=== PATIENT | male | born 1960 | race Caucasian/White ===

== ENCOUNTER 2025-09-23 15:24 | Inpatient (IN) | payer OTHER, MEDICAID, SELFPAY ==
[2025-09-23] VITALS (19 sets, daily range): BP systolic 152–169; BP diastolic 103–122; PULSE 82–104; RESP 15–21; TEMP 36.4–36.9; O2SAT 96–100; BMI 34.1
--- NOTE | ~2025-09-23 | XR_ITS ---
EXAM/PROCEDURE: XR barium swallow modified HISTORY: Coughing with liquids COMPARISON: None available. TECHNIQUE: Modified barium swallow Fluoroscopy time: 0.6 minutes DAP: 0.697 Angelo per square centimeter Number of images: 1 IMPRESSION: No aspiration observed. See speech therapist's note for complete details. Reviewed, dictated and finalized at location A. [facility]
--- NOTE | ~2025-09-23 | MR_ITS ---
EXAM/PROCEDURE: MR renal wo/w con HISTORY: complex cystic mass COMPARISON: CT examination from September 26 TECHNIQUE: Pre and postcontrast enhanced MRI of the kidneys FINDINGS: A 2.5 cm mid pole right renal cyst is slightly complex along the medial margin was slightly thickened appearing wall. No mural nodular enhancing component. A 9 mm simple cyst present in the lower pole of the left kidney and tiny cysts in the midpole and upper pole region. In the left kidney, a 1.2 cm simple cyst in the upper pole. Adrenal glands kidneys spleen pancreas and stomach as well as gallbladder and liver appear within normal limits. No AAA. Cardiomegaly in the lower chest noted. The bones appear within normal limits. IMPRESSION: 1. Mildly complex Bosniak 2 right renal cyst. No follow-up surveillance required for this lesion. 2. Other benign-appearing renal cysts. 3. Incidental note of cardiomegaly. Reviewed, dictated and finalized at location A. PLACEMENT OFFICER IMPRESSION: 1. Mildly complex Bosniak 2 right renal cyst. No follow-up surveillance require d for this lesion. 2. Other benign-appearing renal cysts. 3. Incidental note of cardiomegaly.
--- NOTE | ~2025-09-23 | CT_ITS ---
EXAM/PROCEDURE: CT abdomen pelvis wo con HISTORY: Abdominal Pain COMPARISON: None available. TECHNIQUE: Noncontrast CT of abdomen and pelvis FINDINGS: In the lower chest subsegmental atelectatic changes, and mild cardiomegaly with trace pericardial effusion. In the abdomen and pelvis, the bowel gas pattern is nonobstructive with no free air free fluid or pneumatosis. Moderate large amount of stool present in the rectal vault region. No hydroureteronephrosis or urolithiasis. 2.5 cm mildly complex cystic lesion in the midpole of the right kidney. Mild cystic appearing changes in the left kidney. Appendix and aorta are both normal in size. No gross CT evidence of acute cholecystitis or pancreatitis. The stomach is unopacified and nondistended but no obvious acute abnormality. Spleen and adrenal glands as well as urinary bladder appear normal for technique. Small fat-containing inguinal hernias, right larger than left. No bulky mesenteric or retroperitoneal lymphadenopathy or masses. IMPRESSION: 1. Directed noncontrast exam demonstrating no acute surgical abnormality. 2. Moderate to large amount of stool in the rectal vault. 3. Several chronic appearing findings as above including 2.5 cm mildly complex cystic mass in the midpole the right kidney which can be better evaluated with follow-up abdominal MRI. Reviewed, dictated and finalized at location A. CCO CUTTER
--- NOTE | ~2025-09-23 | MR_ITS ---
EXAMINATION: MR brain/brain stem wo/w con DATE: 09/24/2025 15:42 INDICATION: Suspected stroke with dysarthria and right extremity weakness TECHNIQUE: Magnetic resonance imaging (MRI) of the brain and brainstem was performed without and with 20 mL Multihance intravenous contrast. Sequences included sagittal and axial T1-weighted SE, axial diffusion-weighted FS SE, axial 3D SWAN, axial T2-weighted FLAIR, and axial T2-weighted FSE. Postcontrast axial and coronal T1-weighted SE was obtained. Apparent diffusion coefficient (ADC) maps were created. COMPARISON: Head CT and CT angiogram dated 09/23/2025 FINDINGS: There is are regions of restricted diffusion with associated increased T2 signal consistent with acute infarcts involving the posterior left insular cortex, the posterior left internal capsule and with peripheral cantrell radiata with several small foci in the left frontoparietal region. No intracranial hemorrhage or abnormal intracranial mass lesion. There are additional scattered areas of nonspecific increased T2-weighted signal intensity in the cerebral white matter, predominantly involving the deep and periventricular white matter. There are no intraparenchymal signal abnormalities seen on the other pulse sequences. The ventricles are symmetric and normal in size. There are no abnormal extra-axial fluid collections. Flow voids are seen in the cerebral arteries on the T2- weighted sequences consistent with their expected patency. Mild mucosal thickening the bilateral ethmoid sinuses and along the floor of the left maxillary sinus. Visualized orbits and soft tissues are unremarkable. There are no areas of abnormal enhancement on the post contrast images. IMPRESSION: 1. Multiple infarcts consistent with sharp emboli in the left middle cerebral artery vascular distribution the largest involving the posterior insula, posterior limb of the internal capsule and cantrell radiata with several smaller cortical infarcts in the left frontoparietal region. Reviewed, dictated and finalized at location A. FORMER IMPRESSION: 1. Multiple infarcts consistent with sharp emboli in the left middle cerebral a rtery vascular distribution the largest involving the posterior insula, posteri or limb of the internal capsule and cantrell radiata with several smaller cortica l infarcts in the left frontoparietal region.
--- NOTE | ~2025-09-23 | CT_ITS ---
CT abdomen pelvis wo con INDICATION:abd pain . COMPARISON: None. TECHNIQUE: Axial 2.5 mm images of the abdomen were obtained without IV or oral contrast. Diagnostic sensitivity is limited due to lack of IV contrast. FINDINGS: The lung bases are clear. The liver parenchyma is unremarkable. No intrahepatic mass or ductal dilatation is evident. The gallbladder is unremarkable. The pancreas and spleen are normal in appearance. The adrenal glands are symmetric in size. The kidneys are unremarkable. Right renal cyst measures 2.8 cm. No intrarenal stones are noted. There is no hydronephrosis. Evaluation of the stomach and bowel loops are limited due to lack of oral contrast. The appendix is normal in appearance. There is colonic diverticulosis without evidence of acute diverticulitis. Fat-containing right inguinal hernia is noted. The bladder and rectum are normal. No free intraperitoneal fluid or air is evident. There is no significant retroperitoneal lymphadenopathy. The aorta, visceral vessels and renal arteries demonstrate normal caliber. The lower thoracic and lumbar vertebrae are in normal alignment. IMPRESSION: No acute abnormality is noted in the abdomen and pelvis. There is colonic diverticulosis without evidence of acute diverticulitis. Fat-containing right inguinal hernia repair. All CT scans at this facility are performed using low dose modulation techniques as appropriate to perform exam including the following: automated exposure control; use of iterative reconstruction technique; adjustment of the mA and/or kV according to patient size (this includes techniques or standardized protocols for targeted exams where dose is matched to indication/reason for exam). Reviewed, dictated and finalized at location S. LER ASSEMBLER IMPRESSION: No acute abnormality is noted in the abdomen and pelvis. There is colonic diverticulosis without evidence of acute diverticulitis. Fat-containing right inguinal hernia repair. All CT scans at this facility are performed using low dose modulation techniqu es as appropriate to perform exam including the following: automated exposure c ontrol; use of iterative reconstruction technique; adjustment of the mA and/or kV according to patient size (this includes techniques or standardized protocol s for targeted exams where dose is matched to indication/reason for exam).
--- NOTE | ~2025-09-23 | CT_ITS ---
REFERENCE: [None available.] TECHNIQUE: Axial mm images of the head and neck were obtained without and with infusion of 100 cc of [id number] of intravenous contrast. Postcontrast 1.25 mm axial images were then obtained. On an independent workstation, 0.625 mm axial images were utilized to render MIP and MPR images of the intracranial circulation. CTA NECK: The aortic arch demonstrates normal caliber and patency. Normal branching pattern is noted of the supraaortic vessels. The origins of the supraaortic vessels are widely patent.. The common carotid and cervical segments of the ICA and ECA demonstrate normal caliber and patency. There are atherosclerotic vascular calcification within the cavernous and clinoid and supraclinoid ICA bilaterally without significant stenosis. The vertebral arteries are symmetric in size, demonstrating normal patency. CTA HEAD: The intracranial ICA, MISHA, and MCA demonstrate normal caliber and patency. No hemodynamically significant stenosis or aneurysm is identified. The distal vertebral, basilar, and bilateral posterior cerebral arteries demonstrate normal caliber and patency. The superior cerebellar arteries are also widely patent. NONVASCULAR FINDINGS: The soft tissue of the neck is unremarkable. No mass or pathologic enhancement is noted. There is no pathologically enlarged lymphadenopathy. The airway is patent. No acute intracranial hemorrhage, mass, or extraaxial fluid collections are noted. Ventricular size is normal. The skull is intact. The visualized mastoid air cells and sinuses are clear. There is no pathologic enhancement. IMPRESSION: No hemodynamically significant stenosis is noted of the cervical and intracranial arterial vasculature. Reviewed, dictated and finalized at location S. PING PRESS OPERATOR IMPRESSION: No hemodynamically significant stenosis is noted of the cervical and intracrani al arterial vasculature.
--- NOTE | 2025-09-23 15:46 | ECG_ITS ---
Test Date: 2025-09-23 15:54:07 Measurements Intervals [place] Rate: 105 P: 0 DE: 0 QRS: 25 QRSD: 90 T: 3 QT: 320 QTc: 423 Interpretive Statements ATRIAL FIBRILLATION WITH RAPID VENTRICULAR RESPONSE BASELINE ARTIFACT- I, II, III, AVR, AVL, AVF, V1, V3, V6 ABNORMAL ECG No previous ECG available for comparison Electronically Signed On 09-23-2025 15:56:24 [facility]ILD C[facility] CENTER ADMINISTRATOR by Gregorio Campbell D.O.
--- NOTE | 2025-09-23 16:00 | ED_ITS ---
HPI - Neuro Symptoms/Deficit General Chief Complaint: Fall Stated Complaint: multiple complaints Time Seen by Provider: 09/23/25 15:46 History of Present Illness HPI Narrative: Pt awoke this morning with some weakness on right side. It was not improving so he called 911. Per EMS pt had some slurred speech on their arival but it worsened in route and now having trouble answering questions but able to understand. Pt denies GOULD. Related Data Allergies Allergy/AdvReac Type Severity Reaction Status Date / Time No Known Allergies Allergy Verified 09/23/25 18:09 Review of Systems 2 Review of Systems: ROS unobtainable: Yes unobtainable due to medical condition Exam 2 Const: General: no acute distress Nutritional Appearance: well nourished Limitations: other limitations (aphasic) HENMT: Head: normal to inspection Eyes: Conjunctivae: conjunctivae normal Pupils: Equal, round and reactive pupils present Resp: Effort & Inspection: normal respiratory effort Auscultation: clear to auscultation bilaterally Cardio: Rate: tachycardic Rhythm: abnormal rhythm GI: GI Palp: Yes Soft to palpation Auscultation: normal bowel sounds Skin: General skin exam: normal color Rashes: no rashes Wounds: no wounds Neuro: Other: pt slightly weaker on rue than left ue. cn 2-12 grossly intact. Pt has expressive aphasia. LE strength seems intact Extrem: General: normal to inspection and no clubbing, cyanosis or edema Psych: Mental Status: mental status grossly normal Affect: Anxious affect present (tearful) Attitude: cooperative Course Vital Signs Vital signs: Vital Signs Temperature 98.2 F 09/23/25 15:37 Pulse Rate 100 09/23/25 15:37 Respiratory Rate 18 09/23/25 15:37 Blood Pressure 169/116 H 09/23/25 15:37 Pulse Oximetry 98 09/23/25 15:37 Temperature 98.4 F 09/23/25 17:18 Pulse Rate 96 09/23/25 17:18 Respiratory Rate 18 09/23/25 17:18 Blood Pressure 161/122 H 09/23/25 17:18 Pulse Oximetry 99 09/23/25 17:18 MDM MDM Narrative Medical decision making narrative: will get ekg and labs and ct/cta. last known well before 0800 today since patient awoke with rue weakness but expressive pahasia is in last 30 minutes or so. Pt will be outside window given the unknown onset of RUE weakness. cta neg. discussed with Dr Woods recommended plavix and aspirin and will consult in am. discussed with Elaina Corona and agrees to admit.Pt failed swallow test. Informed Dr Woods ok with asa supp only. Differential Diagnosis Differential Diagnosis: tia v cva v sah Lab Data 09/23/25 15:47 09/23/25 15:47 Labs: Lab Results 09/23/25 09/23/25 09/23/25 Range/Units 15:44 15:47 15:49 WBC 8.2 (4.5-10.0) K/mm3 RBC 4.53 L (4.6-6.20) M/mm3 Hgb 14.6 (14.0-18.0) g/dL Hct 43.6 (42.0-52.0) % MCV 96.2 (80-100) fl MCH 32.2 (26-34) pg MCHC 33.5 (32-36) g/dl RDW 13.6 (11.5-14.5) % Plt Count 216 (150-375) k/mm3 MPV 10.5 H (7.4-10.4) fl Immature Gran % (Auto) 0.2 (0-0.5) % Neut % (Auto) 83.6 H (45.5-73.1) % Lymph % (Auto) 9.4 L (18.3-44.2) % [place] % (Auto) 5.8 (2.6-8.5) % Eos % (Auto) 0.6 (0-4.4) % Baso % (Auto) 0.4 (0.2-1.2) % Lymph # (Auto) 0.77 L (0.9-3.2) K/mm3 [place] # (Auto) 0.5 (0.1-0.6) K/mm3 Eos # (Auto) 0.1 (0-0.3) K/mm3 Baso # (Auto) 0.0 (0.0-0.1) K/mm3 Abs Immat Gran (auto) 0.02 (0.00-0.031) K/mm3 Absolute Neuts (auto) 6.8 H (1.3-6.7) K/mm3 Absolute Nucleated RBC 0.000 (0.0-0.012) K/mm3 Nucleated RBC % 0.0 (0.0-0.2) % PT 12.7 (11.1-14.7) Seconds INR 0.9 APTT 26.4 (22.3-36.8) Seconds Sodium 138 (137-145) mmol/L Potassium 4.5 (3.4-5.0) mmol/L Chloride 106 (98-107) mmol/L Carbon Dioxide 25 (22-30) mmol/L Anion Gap 7 (4-12) mmol/L BUN 27 H (9-20) mg/dL Creatinine 1.23 (0.7-1.3) mg/dL Estim Creat Clear Calc Not Reportable Estimated GFR 59 (59 - ) Glucose 101 (65-110) mg/dL POC Capillary Glucose 107 H (65-105) mg/dl Lactic Acid 1.0 (0.7-2.0) mmol/L Calcium 9.8 (8.4-10.2) mg/dL Total Bilirubin 0.7 (0.2-1.3) mg/dL AST 30 (17-59) U/L ALT 28 (6-50) U/L Alkaline Phosphatase 78 (38-126) U/L Troponin I < 0.012 (0.000-0.034) ng/mL Total Protein 7.7 (6.3-8.2) g/dL Albumin 4.6 (3.5-5.1) g/dL Urine Color (Yellow) Urine Appearance (Clear) Urine pH (5.0-9.0) Ur Specific [place] (1.001-1.035) Urine Protein (Negative) mg/dL Urine Glucose (UA) (Negative) mg/dL Urine Ketones (Negative) mg/dL Ur Blood (Man) (Negative) Urine Nitrate (Negative) Urine Bilirubin (Negative) Urine Urobilinogen (<2.0) mg/dL Leukocyte Esterase Rfl (Negative) BACILIO/UL 12/15/25 Range/Units 16:13 WBC (4.5-10.0) K/mm3 RBC (4.6-6.20) M/mm3 Hgb (14.0-18.0) g/dL Hct (42.0-52.0) % MCV (80-100) fl MCH (26-34) pg MCHC (32-36) g/dl RDW (11.5-14.5) % Plt Count (150-375) k/mm3 MPV (7.4-10.4) fl Immature Gran % (Auto) (0-0.5) % Neut % (Auto) (45.5-73.1) % Lymph % (Auto) (18.3-44.2) % [place] % (Auto) (2.6-8.5) % Eos % (Auto) (0-4.4) % Baso % (Auto) (0.2-1.2) % Lymph # (Auto) (0.9-3.2) K/mm3 [place] # (Auto) (0.1-0.6) K/mm3 Eos # (Auto) (0-0.3) K/mm3 Baso # (Auto) (0.0-0.1) K/mm3 Abs Immat Gran (auto) (0.00-0.031) K/mm3 Absolute Neuts (auto) (1.3-6.7) K/mm3 Absolute Nucleated RBC (0.0-0.012) K/mm3 Nucleated RBC % (0.0-0.2) % PT (11.1-14.7) Seconds INR APTT (22.3-36.8) Seconds Sodium (137-145) mmol/L Potassium (3.4-5.0) mmol/L Chloride (98-107) mmol/L Carbon Dioxide (22-30) mmol/L Anion Gap (4-12) mmol/L BUN (9-20) mg/dL Creatinine (0.7-1.3) mg/dL Estim Creat Clear Calc Estimated GFR (59 - ) Glucose (65-110) mg/dL POC Capillary Glucose (65-105) mg/dl Lactic Acid (0.7-2.0) mmol/L Calcium (8.4-10.2) mg/dL Total Bilirubin (0.2-1.3) mg/dL AST (17-59) U/L ALT (6-50) U/L Alkaline Phosphatase (38-126) U/L Troponin I (0.000-0.034) ng/mL Total Protein (6.3-8.2) g/dL Albumin (3.5-5.1) g/dL Urine Color Yellow (Yellow) Urine Appearance Clear (Clear) Urine pH 5.5 (5.0-9.0) Ur Specific [place] 1.013 (1.001-1.035) Urine Protein Negative (Negative) mg/dL Urine Glucose (UA) Negative (Negative) mg/dL Urine Ketones Negative (Negative) mg/dL Ur Blood (Man) Negative (Negative) Urine Nitrate Negative (Negative) Urine Bilirubin Negative (Negative) Urine Urobilinogen 0.2 (<2.0) mg/dL Leukocyte Esterase Rfl Negative (Negative) BACILIO/UL Imaging Data Radiologist's impression: ITS Impressions Head/Neck CTA 09/23/25 17:17 IMPRESSION: No hemodynamically significant stenosis is noted of the cervical and intracranial arterial vasculature. ECG Data EKG #1: Interpretation: a fib with rvr rate 105, no sat or t wave changes Discharge Plan Discharge Clinical Impression: Expressive aphasia, Right sided weakness Patient Disposition: Still a Patient Condition: Guarded Prognosis Patient Language: Vietnamese Follow-up/Referrals: Mio,Carmelo Banerjee MD [Primary Care Provider] Quality Stroke Scale Stroke Scale 1: 1a Level of consciousness: alert-0 1b Level of consciousness questions: answers both correctly-0 1c Level of consciousness commands: obeys both correctly-0 2 Best gaze: normal-0 3 Visual: no visual loss-0 4 Facial palsy: normal-0 5a Motor: left arm: no drift-0 5b Motor: right arm: drift-1 6a Motor: left leg: no drift-0 6b Motor: right leg: no drift-0 7 Limb ataxia: present in one limb-1 8 Sensory: normal-0 9 Best language: severe aphasia-2 10 Dysarthria: unitelligible or mute-2 11 Extinction and inattention: no abnormality-0 Level:: 6
[2025-09-23 16:03] LABS: Hematocrit 43.6 % (42.0-52.0); Hemoglobin 14.6 g/dL (14.0-18.0); Immature Granulocyte Percent A 0.2 % (0-0.5); Lymphocytes Absolute Auto 0.77 K/mm3 (0.9-3.2); Mean Corpuscular HGB Conc 33.5 g/dl (32-36); Mean Corpuscular Hemoglobin 32.2 pg (26-34); Mean Corpuscular Volume 96.2 fl (80-100); Nucleated Red Blood Cells Absolute Auto 0.000 K/mm3 (0.0-0.012); Nucleated Red Blood Cells Perc 0.0 % (0.0-0.2); Platelet Count Result 216 k/mm3 (150-375); Red Blood Count 4.53 M/mm3 (4.6-6.20); White Blood Count 8.2 K/mm3 (4.5-10.0)
[2025-09-23 16:13] LABS: Alanine Aminotransferase 28 U/L (6-50); Albumin Level 4.6 g/dL (3.5-5.1); Alkaline Phosphatase 78 U/L (38-126); Anion Gap 7 mmol/L (4-12); Aspartate Amino Transferase 30 U/L (17-59); Bilirubin,Total 0.7 mg/dL (0.2-1.3); Blood Urea Nitrogen 27 mg/dL (9-20); Calcium 9.8 mg/dL (8.4-10.2); Carbon Dioxide 25 mmol/L (22-30); Chloride 106 mmol/L (98-107); Estimated Glomerular Filt Rate 59; Glucose 101 mg/dL (65-110); Potassium 4.5 mmol/L (3.4-5.0); Sodium 138 mmol/L (137-145); Total Protein 7.7 g/dL (6.3-8.2)
--- NOTE | 2025-09-23 16:22 | PC.NURSE ---
called lab to add troponin to labwork already sent down
[2025-09-23 16:23] LABS: Add Urine Microscopic? NO; Appearance Urine Clear (Clear); Glucose Urine UA Negative (Negative); Leukocyte Esterase Ur Negative LEU/UL (Negative); Nitrate Urine Negative (Negative); Specific Grav Ur 1.013 (1.001-1.035)
[2025-09-23 16:30] LABS: INR 0.9; Partial Thromboplastin Time 26.4 Seconds (22.3-36.8); Prothrombin Time 12.7 Seconds (11.1-14.7)
[2025-09-23 16:44] LABS: Troponin I < 0.012 ng/mL (0.000-0.034)
--- NOTE | 2025-09-23 18:06 | PC.NURSE ---
patient is unable to do swallow study test on due to slurred speech, facial droop, tongue weakness. MD aware, patient made NPO, MD ordering alternative medications.
--- OUTSIDE RECORDS SUMMARY | 2025-09-23 18:27 | XMS_ITS | Patient Health Record ---
Author Organization [facility] Address [address] [place] [address] Phone [phone] Care Team Providers Care Dispensing Operator Name Role Phone Yosef Payton APRN Primary Care Provider Reason For Referral No Information Medications Medication SIG (Take, Route, Frequency, Duration) Notes Start Date End Date Diagnosis (ICD Code) Status Benzonatate 100 MG Capsule 1 capsule as needed Orally Three times a day Active Amoxicillin-Pot Clavulanate 500 MG Tablet Orally twice a day Active Metoprolol Tartrate 50 MG Tablet 1 tablet with food Orally Twice a day Active Levothyroxine Sodium 25 MCG Tablet 1 tablet on an empty stomach in the morning Orally Once a day Active Lisinopril 10 MG Tablet Orally Active Social History Sex Observation Social History Observation Description Sex Observation Male Social History Primary Social History Social Info Question Answer Notes Living Arrangement Living Arrangement: Homeless Tobacco Use - do not use Tobacco Use: Never Employment Status Employment Status: Unemployed Illicit Substance Usage Illicit Substance Usage: No Alcohol Use Alcohol Use Frequency: Weekly or Daily Type of alcohol consumed Beer Quanity consumed on those occasions one a night Problems Problem Type SNOMED Code ICD Code Dates Problem Status W/U Status Risk Notes Problem Chronic atrial fibrillation (208941674) Chronic atrial fibrillation (I48.2) Added On:09/09 Active confirmed Problem Hypothyroidism (75032826) Hypothyroidism, unspecified type (E03.9) Added On:09/09 Active confirmed Problem Bipolar disorder (44299744) Bipolar affective disorder, current episode manic, current episode severity unspecified (F31.9) Added On:09/09 Active confirmed Problem Secondary hypertension (53742860) Secondary hypertension (I15.9) Added On:09/09 Active confirmed Plan Of Treatment No Information Insurance Providers Payer Name Payer Address Payer Phone Subscriber Number Group Number Insured Name Patient Relationship to Insured Coverage Start Date Coverage End Date [facility] [address] [address] [place] [address] [id number] Don Neil Self - patient is the insured 6 Medical (General) History Medical History History ICD Code hypothyroidism hypertension anxiety ADHD bipolar disorder atrial fibrillation Surgical History Surgery Date(Month/Year) sinus surgery
--- OUTSIDE RECORDS SUMMARY | 2025-09-23 18:27 | XMS_ITS | Clinical Summary ---
Author Organization [facility] al Address [address] [place] [address] Care Team Providers Care [employer] Name Role Phone Carmelo Lieberman MD Primary Care Provider [phone] Allergies No known active allergies Medications simvastatin (ZOCOR) 40 mg tablet 0 Active rivaroxaban (Xarelto) 20 mg tablet Xarelto 20 mg tablet 9 Active potassium chloride ER (potassium chloride ER) 20 mEq CR tablet potassium chloride ER 20 mEq tablet,extended release(part/jillian t) Active metoprolol tartrate (LOPRESSOR) 50 mg immediate release tablet metoprolol tartrate 50 mg tablet 9 Active loratadine (CLARITIN) 10 mg tablet loratadine 10 mg tablet TK 1 T PO QD 8 Active levothyroxine (SYNTHROID) 25 mcg tablet levothyroxine 25 mcg tablet Active furosemide (LASIX) 20 mg tablet TK 1 T PO D 0 Active fluticasone propionate (FLONASE) 50 mcg/actuation nasal spray fluticasone propionate 50 mcg/actuation nasal spray,suspension SHAKE LQ AND U 1 SPR IEN QD Active azithromycin (ZITHROMAX) 250 mg tablet TAKE 1 TABLET BY MOUTH DAILY FOR 3 DAYS Active Encounters Date Type Department Care Team Description 08/13/2025 12:45 AM TOBACCO SPRAYER - 08/13/2025 3:02 AM TOBACCO SPRAYER Emergency [facility] Emergency Department [address] [place] [address] Padmini [place] MD Non-recurrent unilateral inguinal hernia without obstruction or gangrene (Primary Dx) Discharge Disposition: Discharge to home or self care from Last 3 Months Surgical History Surgery Date Site/Laterality Comments INGUINAL HERNIA REPAIR SINUS SURGERY Medical History Medical History Date Comments Hypertension Thyroid disease A-fib (HCC) Varicose veins of both lower extremities Social History Tobacco Use Types Packs/Day Years Used Date Smoking Tobacco: Never Smokeless Tobacco: Never Alcohol Use Standard Drinks/Week Comments Not Currently 0 (1 standard drink = 0.6 oz pur e alcohol) socially Personal Safety Answer Date Recorded Have you ever been in or are you currently in a harmful physical or emotional relationship or is someone making you feel afraid or unsafe? Denies 08/12/2025 Sex and Gender Information Value Date Recorded Sex Assigned at Not on file Legal Sex Male 6:44 PM TOBACCO SPRAYER Gender Identity Not on file Sexual Orientation Not on file Last Filed Vital Signs Vital Sign Reading Time Taken Comments Blood Pressure 145/103 08/13/2025 2:00 AM TOBACCO SPRAYER Pulse 73 08/13/2025 2:00 AM TOBACCO SPRAYER Temperature 36.8 C (98.3 F) 08/12/2025 3:54 PM TOBACCO SPRAYER Respiratory Rate 20 08/13/2025 2:00 AM TOBACCO SPRAYER Oxygen Saturation 94% 08/13/2025 2:00 AM TOBACCO SPRAYER Inhaled Oxygen Concentration - - Weight 117.5 kg (259 lb) 08/12/2025 3:54 PM TOBACCO SPRAYER Height 188 cm (6' 2) 08/12/2025 3:54 PM TOBACCO SPRAYER Body Mass Index 33.25 08/12/2025 3:54 PM TOBACCO SPRAYER Plan of Treatment Health Maintenance Due Date Last Done Comments Colon Cancer Screening-Colonoscopy 1962 Depression Screening 1962 Hepatitis C Screening 1962 Prostate Cancer Screening-PSA 1962 Hepatitis B Screening 1980 Regular Well Visit/Exam 18-64 1980 Zoster Vaccine (1 of 2) 2012 Influenza Vaccine (#1) 2025 2, 07/04/2017, 09/11/2015 DTaP/Tdap/Td Vaccine (2 - Td or Tdap) 11/25/2026 11/25/2016 Pneumococcal vaccine <65 Aged Out No longer eligible based on patient's age to complete this topic Procedures Procedure Name Priority Date/Time Associated Diagnosis Comments EGFR STAT 08/12/2025 7:53 PM TOBACCO SPRAYER DIFFERENTIAL AUTO STAT 08/12/2025 7:5 3 PM TOBACCO SPRAYER TROPONIN I HIGH-SENSITIVITY SERIES (BASELINE, 2HR, 4HR, 6HR) STAT 08/12/2025 7:53 PM TOBACCO SPRAYER CBC WITH AUTO DIFFERENTIAL STAT 08/12/2025 7:53 PM TOBACCO SPRAYER COMPREHENSIVE METABOLIC PANEL STAT 08/12/2025 7:53 PM TOBACCO SPRAYER XR CHEST PA LATERAL 2 VIEWS ED 08/12/2025 4:21 PM TOBACCO SPRAYER ECG 12-LEAD STAT 08/12/2025 4:17 PM TOBACCO SPRAYER from Last 3 Months Results * Troponin I high-sensitivity series (baseline, 2hr, 4hr, 6hr) (08/12/2025 7:53 PM TOBACCO SPRAYER) Trop I hs 4 <=35 ng/L Comment: Interpretive Data For further hscTnI resources including the diagnostic algorithm and an aid in interpretation, copy and paste this link: https://bjhlab.testcatalog.org/show/hsTrop-[email or web address] Current Interpretive Data last revised 2020. Blood 08/12/2025 7:53 PM TOBACCO SPRAYER 08/12/2025 8:00 PM TOBACCO SPRAYER us Padmini [place] MD LAB BLOOD ORDERABLES Final Result [facility] Department [place] [address] * eGFR (08/12/2025 7:53 PM TOBACCO SPRAYER) eGFR 65 >=60 mL/min/1. 73 m2 Comment: Interpretive Data Reference Interval Normal >/= 90 mL/min/1.73m2 Mildly decreased* 60 - 89 mL/min/1.73m2 Mildly to moderately decreased 45 - 59 mL/min/1.73m2 Moderately to severely decreased 30 - 44 mL/min/1.73m2 Severely decreased 15 - 29 mL/min/1.73m2 Kidney Failure < 15 mL/min/1.73m2 *Relative to young adult level Estimated glomerular filtration rate is determined by the 2020 CKD-EPI equation recommended by the National Kidney Foundation (A Unifying Approach to GFR Estimation: Recommendations of the NKF-ASK Task Force on Reassessing the Inclusion of Race in Diagnosing Kidney Disease, JASN 2020). The CKD-EPI equation should not be used for patients with unstable renal function and has not been validated in children and those over 70. Current interpretive data was last reviewed 2021. Blood 08/12/2025 7:53 PM TOBACCO SPRAYER 08/12/2025 8:14 PM TOBACCO SPRAYER Padmini [place] MD LAB BLOOD ORDERABLES Final Result [facility] Department [place] [address] * Differential, auto (08/12/2025 7:53 PM TOBACCO SPRAYER) Pathologist [facility] Neutrophil abs 4.47 1.50 - 6.50 K/cumm Imm gran abs 0.05 0.00 - 0.10 K/cumm [facility] Lymphocyte abs 1.48 0.80 - 3.30 K/cumm [facility] Monocyte abs 0.45 0.20 - 0.80 K/cumm [facility] Eosinophil abs 0.17 0.00 - 0.50 K/cumm [facility] Basophil abs 0.05 0.00 - 0.10 K/cumm [facility] Neutrophil pct 67.2 % [facility] Comment: Interpretive Data Percent cell count reference ranges are not reported, since discordance with absolute values may lead to misinterpretation of CBC data. Current Interpretive Data was last revised on 2018. Imm gran pct 0.7 % [facility] Comment: Interpretive Data Percent cell count reference ranges are not reported, since discordance with absolute values may lead to misinterpretation of CBC data. Current Interpretive Data was last revised on 2018. Lymphocyte pct 22.2 % [facility] Comment: Interpretive Data Percent cell count reference ranges are not reported, since discordance with absolute values may lead to misinterpretation of CBC data. Current Interpretive Data was last revised on 2018. Monocyte pct 6.7 % [facility] Comment: Interpretive Data Percent cell count reference ranges are not reported, since discordance with absolute values may lead to misinterpretation of CBC data. Current Interpretive Data was last revised on 2018. Eosinophil pct 2.5 % [facility] Comment: Interpretive Data Percent cell count reference ranges are not reported, since discordance with absolute values may lead to misinterpretation of CBC data. Current Interpretive Data was last revised on 2018. Basophil pct 0.7 % [facility] Comment: Interpretive Data Percent cell count reference ranges are not reported, since discordance with absolute values may lead to misinterpretation of CBC data. Current Interpretive Data was last revised on 2018. Blood 08/12/2025 7:53 PM TOBACCO SPRAYER 08/12/2025 8:00 PM TOBACCO SPRAYER Padmini [place] MD LAB BLOOD ORDERABLES Final Result [facility] Department [place] [address] * CBC with auto differential (08/12/2025 7:53 PM TOBACCO SPRAYER) WBC 6.67 3.80 - 9.90 K/cumm Hgb 13.8 13.0 - 17.5 g/dL [facility] Hct 42.6 38.9 - 50.3 % [facility] Plt 294 150 - 400 K/cumm [facility] MPV 10.1 9.1 - 12.3 fL [facility] RBC 4.47 4.30 - 5.80 M/cumm [facility] MCV 95.3 81.3 - 96.4 fL [facility] MCH 30.9 27.1 - 33.3 pg [facility] MCHC 32.4 32.3 - 35.7 g/dL [facility] RDW CV 13.1 11.1 - 14.9 % [facility] RDW SD 45.8 35.7 - 48.1 fL [facility] NRBC abs 0.00 0.00 - 0.01 K/cumm [facility] Blood 08/12/2025 7:53 PM TOBACCO SPRAYER 08/12/2025 8:00 PM TOBACCO SPRAYER us Padmini [place] MD LAB BLOOD ORDERABLES Final Result [facility] Department [place] [address] * Comprehensive metabolic panel (08/12/2025 7:53 PM TOBACCO SPRAYER) Sodium 142 135 - 145 mmol/L Potassium, pl 4.2 3.3 - 4.9 mmol/L [facility] Chloride 105 97 - 110 mmol/L [facility] CO2 26 22 - 32 mmol/L [facility] Anion gap 11 2 - 15 mmol/L [facility] BUN 16 6 - 25 mg/dL [facility] Creatinine 1.25 0.80 - 1.30 mg/dL [facility] Glucose 109 70 - 199 mg/dL [facility] Comment: Interpretive Data Fasting glucose >/= 126 mg/dl is diagnostic for diabetes. Fasting is defined as no caloric intake for at least 8 hours. Fasting glucose between 100 mg/dl to 125 mg/dl is diagnostic of prediabetes. In a patient with classic symptoms of hyperglycemia or hyperglycemic crisis, a random glucose >/= 200 mg/dl is diagnostic for diabetes. In the absence of unequivocal hyperglycemia, results should be confirmed by repeat testing. The classification and Diagnosis of Diabetes Diabetes Care 202; 46: S19-S40. Current interpretive data was last revised 2022. Calcium 9.6 8.5 - 10.3 mg/dL [facility] Bilirubin, total 0.6 0.1 - 1.2 mg/dL [facility] Protein, pl 7.2 6.5 - 8.5 g/dL [facility] Albumin 4.2 3.5 - 5.0 g/dL [facility] Alk phos 72 40 - 130 Units/L [facility] ALT 33 7 - 55 Units/L [facility] AST 32 10 - 50 Units/L [facility] Blood 08/12/2025 7:53 PM TOBACCO SPRAYER 08/12/2025 8:00 PM TOBACCO SPRAYER us Padmini [place] MD LAB BLOOD ORDERABLES Final Result [facility] [place] [address] * XR Chest PA Lateral 2 Views (If patient hemodynamically stable and ambulatory) (08/12/2025 4:21 PM TOBACCO SPRAYER) Anatomical Region Laterality Modality Body, Chest N/A Computed Radiogr aphy 08/12/2025 4:54 PM TOBACCO SPRAYER Impressions 08/12/2025 4:54 PM TOBACCO SPRAYER No focal consolidation, pleural effusion, or pneumothorax. The cardiomediastinal silhouette is unremarkable. Electronically signed by: Elmira Mcknight MD, MPHS Narrative 08/12/2025 4:54 PM TOBACCO SPRAYER EXAMINATION: XR CHEST PA LATERAL 2 VIEWS HISTORY: Shortness of breath COMPARISON: None available. Procedure Note Elmira Mcknight MD - 08/12/2025 EXAMINATION: XR CHEST PA LATERAL 2 VIEWS HISTORY: Shortness of breath COMPARISON: None available. IMPRESSION: No focal consolidation, pleural effusion, or pneumothorax. The cardiomediastinal silhouette is unremarkable. Electronically signed by: Elmira Mcknight MD, MPHS us Padmini [place] MD IMG XR PROCEDURES Fin al Result * ECG 12-LEAD (08/12/2025 4:17 PM TOBACCO SPRAYER) Narrative [facility] - 08/12/2025 4:17 PM TOBACCO SPRAYER Debbie Marin MD 08/12/2025 4:18 PM ECG 12 lead Date/Time: 08/12/2025 4:17 PM Performed by: Debbie Marin MD Authorized by: Gregory Pinon MD Rate: ECG rate: 89 Rhythm: Rhythm: atrial fibrillation Ectopy: Ectopy: none QRS: QRS axis: Normal QRS intervals: Normal Conduction: Conduction: normal ST segments: ST segments: Normal T waves: T waves: flattening Flattening: III, aVL, aVF, V5 and V6 Previous ECG: Previous ECG: Compared to current Date of previous EC02/07/2020 Interpretation: Interpretation: No significant change Recommended Follow-up: Recommended follow up: further workup in the ED us Padmini [place] MD ECG ORDERABLES Final Result [facility] from Last 3 Months Insurance [facility] [employer] [place] [facility] Care Teams [employer] Relationship Specialty Start Date End Date Carmelo Lieberman MD [id number] [address] PCP - General 02/16/21
--- OUTSIDE RECORDS SUMMARY | 2025-09-23 18:27 | XMS_ITS | Clinical Summary ---
Author Organization [facility] Address Formerly [facility], later [facility] [place] [address] Care Team Providers Care Physiognomist Name Role Phone Carmelo Lieberman MD Primary Care Provider [phone] Kaycee Witt MD Unavailable [phone] Allergies No known active allergies Medications rivaroxaban (XARELTO) 20 MG Tab tablet Take 20 mg by mouth after lunch. 12/13/2020 Active furosemide 20 MG tablet Take 20 mg by mouth daily. Active potassium chloride CR 20 MEQ tablet Take 20 mEq by mouth daily. Active levothyroxine 25 MCG tablet Take 25 mcg by mouth daily. Active simvastatin 40 MG tablet Take 40 mg by mouth nightly. Active HYDROcodone-acet aminophen 5-325 MG tabletIndication s:Acute Pain < 3 Day Supply Take 1 tablet by mouth every 6 (six) hours as needed. Indications : Acute Pain < 3 Day Supply 10 tablet 02/19/2021 Active Encounters Date Type Department Care Team Description 08/23/2025 1:21 PM CONTINUOUS PROCESS MACHINE OPERATOR - 08/23/2025 5:59 PM [facility] Emergency [facility] [place] [address] Jase Jessica MD Groin Pain; Pleuritic Chest Pain Discharge Disposition: Home or Self Care (Routine Discharge) 08/23/2025 Travel from Last 3 Months Social History Tobacco Use Types Packs/Day Years Used Date Smoking Tobacco: Former Smokeless Tobacco: Never Alcohol Use Standard Drinks/Week Comments Yes 0 (1 standard drink = 0.6 oz pur e alcohol) occasional beer Sex and Gender Information Value Date Recorded Sex Assigned at Not on file Legal Sex Male 6:04 PM CDT Gender Identity Not on file Sexual Orientation Not on file Last Filed Vital Signs Vital Sign Reading Time Taken Comments Blood Pressure 148/112 08/23/2025 3:35 PM CONTINUOUS PROCESS MACHINE OPERATOR Pulse 79 08/23/2025 3:35 PM CONTINUOUS PROCESS MACHINE OPERATOR Temperature 36.6 C (97.8 F) 08/23/2025 1:32 PM CONTINUOUS PROCESS MACHINE OPERATOR Respiratory Rate 19 08/23/2025 3:35 PM CONTINUOUS PROCESS MACHINE OPERATOR Oxygen Saturation 98% 08/23/2025 3:35 PM CONTINUOUS PROCESS MACHINE OPERATOR Inhaled Oxygen Concentration - - Weight 118.1 kg (260 lb 5.8 oz) 08/23/2025 1:32 PM CONTINUOUS PROCESS MACHINE OPERATOR Height 188 cm (6' 2) 08/23/2025 1:32 PM CONTINUOUS PROCESS MACHINE OPERATOR Body Mass Index 33.43 08/23/2025 1:32 PM CONTINUOUS PROCESS MACHINE OPERATOR Plan of Treatment Upcoming Encounters Date Type Department Care Team (Latest Contact Info) Description 10/07/2025 4:35 PM CONTINUOUS PROCESS MACHINE OPERATOR Hospital Encounter [facility] [place] [address] Freddy Trevizo MD [address] [place] [address] [phone] 10/07/2025 4:35 PM CONTINUOUS PROCESS MACHINE OPERATOR - 10/07/2025 6:40 PM CONTINUOUS PROCESS MACHINE OPERATOR Surgery [facility] [place] [address] Freddy Trevizo MD [address] [place] [address] [id number] ROBOTIC XI ASSISTED LAPAROSCOPIC RIGHT INGUINAL HERNIA REPAIR WITH MESH, POSSIBLE OPEN REPAIR Scheduled Procedures Name Priority Associated Diagnoses Date/Ti me ROBOTIC XI HERNIA INGUINAL RIGHT INGUINAL HERNIA K40.90 10/07/2025 4:35 PM CONTINUOUS PROCESS MACHINE OPERATOR Health Maintenance Due Date Last Done Comments Colorectal Cancer Screening Colonoscopy (10 Years) 1960 Annual Physical 1965 Hepatitis C 1980 DTaP, Tdap and Td Vaccines ( 1 - Tdap) 1981 Pneumococcal Vaccine: 50+ Ye ars (1 of 1 - PCV) 2012 Zoster Vaccines (1 of 2) 2012 COVID-19 Vaccine (1 - 2024-2 6 season) 2025 Influenza Adult (#1) 2025 RSV Immunization or 60+ Years (1 - 1-dose 75+ series) 2037 Hepatitis A Vaccines Aged Out No long er eligible based on patient's age to complete this topic Meningococcal B Vaccine Aged Out No l onger eligible based on patient's age to complete this topic Meningococcal Vaccine Aged Out No eddie jesusita eligible based on patient's age to complete this topic RSV Immunizations Under 20 Months Aged Out No longer eligible based on patient's age to complete this topic Goals Goal Patient Goal Type Associated Problems Recent Progress Patient-Stated? Author Autogenerat ed Goal Care Plan Autogenerated Problem No Lili Vu RN Procedures Procedure Name Priority Date/Time Associated Diagnosis Comments CT ABD+PEL W CON STAT 08/23/2025 4:41 PM CONTINUOUS PROCESS MACHINE OPERATOR XR CHEST PORTABLE STAT 08/23/2025 3:1 5 PM CONTINUOUS PROCESS MACHINE OPERATOR ELECTROCARDIOGRAM REPORT Routine 025 3:14 PM CONTINUOUS PROCESS MACHINE OPERATOR LIPASE STAT 08/23/2025 2:50 PM CONTINUOUS PROCESS MACHINE OPERATOR BASIC METABOLIC PANEL STAT 08/23/2025 2:50 PM CONTINUOUS PROCESS MACHINE OPERATOR HC CBC AUTO W/AUTO DIFF STAT 08/23/20 25 2:50 PM CONTINUOUS PROCESS MACHINE OPERATOR ECG 12-LEAD Routine 08/23/2025 1:43 PM CONTINUOUS PROCESS MACHINE OPERATOR from Last 3 Months Results * CT ABD+PEL W IV CON ONLY (08/23/2025 4:41 PM CONTINUOUS PROCESS MACHINE OPERATOR) Anatomical Region Laterality Modality Abdomen Computed Tomogra phy 08/23/2025 4:39 PM CONTINUOUS PROCESS MACHINE OPERATOR Impressions 08/23/2025 4:43 PM CONTINUOUS PROCESS MACHINE OPERATOR IMPRESSION: There is a fat-containing hernia that is present on the RIGHT superior to this there are stranding changes that are present. This may be secondary to vascular enlargement. This finding may be secondary to the herniated fat or could be due to inflammatory changes. Colonic diverticulosis without acute inflammation. Referred By: Interpreted By: Nathaniel Pacheco MD, 08/23/2025 4:39 PM Narrative 08/23/2025 4:43 PM CONTINUOUS PROCESS MACHINE OPERATOR [address] [address] Procedure(s): CT ABD+PEL W CON Date of service: 08/23/2025 4:17 PM Provided clinical information: 65 years, Male, Abdominal pain/right inguinal hernia reduced Procedure and materials: Helical images of the abdomen and pelvis are obtained from superior to the diaphragm to inferior to the pubic symphysis. Sagittal and coronal reconstructions are obtained. 100 mL Isovue-370. A dose lowering technique was used for this procedure, which may include, but is not limited to, dose reduction technique, automated exposure control, iterative reconstruction, ALARA (As Low As Reasonably Achievable), or Image Gently techniques. Comparison studies: None. Findings: CT abdomen and pelvis: Lung Bases: No pleural effusions or consolidations.Dependent atelectatic changes are present in the lung bases. Adrenals:Unremarkable Spleen:No splenomegaly. Gallbladder and Biliary system:No CT evidence of cholelithiasis. No biliary dilatation Pancreas:Unremarkable Liver:Unremarkable Kidneys:Bilateral renal cysts. No follow-up imaging is recommended per consensus recommendations based on imaging criteria. . Bowel:Fat-containing RIGHT inguinal hernia is present. Small fat-containing LEFT inguinal hernia. Colonic diverticulosis is present. No acute diverticulitis. Appendix is unremarkable. There are mild stranding changes are present in the RIGHT lower quadrant this is suspected to be secondary to vascular engorgement. This is better seen on the coronal reconstructed images. This may relate to inflammatory changes. No small bowel dilatation. Aorta and Retroperitoneum:Aorta is not aneurysmal.No enlarged lymph nodes. Pelvic Organs:Urinary bladder is unremarkable. Moderate prostate enlargement. Bone/Musculoskeletal: Degenerative changes lower lumbar spine. Free fluid: Stranding changes in the RIGHT lower quadrant. Procedure Note Nathaniel Pacheco MD - 08/23/2025 [facility] [address] [place], [place] [address] Procedure(s): CT ABD+PEL W CON Date of service: 08/23/2025 4:17 PM Provided clinical information: 65 years, Male, Abdominal pain/rightinguinal hernia reduced Procedure and materials: Helical images of the abdomen and pelvis areobtained from superior to the diaphragm to inferior to the pubicsymphysis. Sagittal and coronal reconstructions are obtained. 100 mLIsovue-370. A dose lowering technique was used for this procedure, which may include,but is not limited to, dose reduction technique, automated exposurecontrol, iterative reconstruction, ALARA (As Low As ReasonablyAchievable), or Image Gently techniques. Comparison studies: None. Findings: CT abdomen and pelvis: Lung Bases: No pleural effusions or consolidations.Dependent atelectaticchanges are present in the lung bases. Adrenals:Unremarkable Spleen:No splenomegaly. Gallbladder and Biliary system:No CT evidence of cholelithiasis. Nobiliary dilatation Pancreas:Unremarkable Liver:Unremarkable Kidneys:Bilateral renal cysts. No follow-up imaging is recommended per consensus recommendations based onimaging criteria. . Bowel:Fat-containing RIGHT inguinal hernia is present. Smallfat-containing LEFT inguinal hernia. Colonic diverticulosis is present. Noacute diverticulitis. Appendix is unremarkable. There are mild strandingchanges are present in the RIGHT lower quadrant this is suspected to besecondary to vascular engorgement. This is better seen on the coronalreconstructed images. This may relate to inflammatory changes. No smallbowel dilatation. Aorta and Retroperitoneum:Aorta is not aneurysmal.No enlarged lymphnodes. Pelvic Organs:Urinary bladder is unremarkable. Moderate prostateenlargement. Bone/Musculoskeletal: Degenerative changes lower lumbar spine. Free fluid: Stranding changes in the RIGHT lower quadrant. IMPRESSION: There is a fat-containing hernia that is present on the RIGHT superior tothis there are stranding changes that are present. This may be secondaryto vascular enlargement. This finding may be secondary to the herniatedfat or could be due to inflammatory changes. Colonic diverticulosis without acute inflammation. Referred By: Interpreted By: Nathaniel Pacheco MD, 08/23/2025 4:39 PM us Jase Jessica MD CT Final Result * XR CHEST PORTABLE (08/23/2025 3:15 PM CONTINUOUS PROCESS MACHINE OPERATOR) Anatomical Region Laterality Modality Chest Radiographic Lara ging 08/23/2025 3:16 PM CONTINUOUS PROCESS MACHINE OPERATOR Impressions 08/23/2025 3:16 PM CONTINUOUS PROCESS MACHINE OPERATOR IMPRESSION: No acute findings Ordered By: JASE JESSICA Interpreted By: Ankit Quinn MD, 08/23/2025 3:16 PM Narrative 08/23/2025 3:16 PM CONTINUOUS PROCESS MACHINE OPERATOR [place] [address] SINGLE VIEW OF THE CHEST Clinical history: Cough, shortness of breath Comparison: None A single view of the chest demonstrates the cardiac silhouette to be normal in size and appearance. The pulmonary vessels are normally distributed. The Lungs are clear. No consolidations or effusions are seen. Procedure Note Ankit Quinn MD - 08/23/2025 [place] [address] SINGLE VIEW OF THE CHEST Clinical history: Cough, shortness of breath Comparison: None A single view of the chest demonstrates the cardiac silhouette to benormal in size and appearance. The pulmonary vessels are normallydistributed. The Lungs are clear. No consolidations or effusions are seen. IMPRESSION: No acute findings Ordered By: JASE JESSICA Interpreted By: Ankit Quinn MD, 08/23/2025 3:16 PM us Jase Jessica MD GENERAL IMAGING Final Result * EKG Reading (08/23/2025 3:14 PM CONTINUOUS PROCESS MACHINE OPERATOR) Jase Ramires MD - 08/23/2025 3:14 PM CONTINUOUS PROCESS MACHINE OPERATOR Jase Jessica MD 08/23/2025 5:04 PM EKG Reading Date/Time: 08/23/2025 3:14 PM Performed by: Jase Jessica MD Authorized by: Jase Jessica MD Interpreted by ED physician Previous ECG: no previous ECG available Rhythm: atrial fibrillation Rate: normal BPM: 87 Comments: Atrial fibrillation. Heart rate 70. Normal axis nonspecific ST-T wave change. No old EKG to compare. Rhythm strip ordered interpreted 1343 Atrial fibrillation. Heart rate 87. No ectopy Jase Jessica MD [facility] Final Result * LIPASE (08/23/2025 2:50 PM CONTINUOUS PROCESS MACHINE OPERATOR) [facility] LIPASE 21 13 - 75 UNITS/L 08/23/2025 3:26 PM CONTINUOUS PROCESS MACHINE OPERATOR [facility] BLOOD VENOUS BLOOD SPECIMEN / Unknown 08/23/2025 2:50 PM CONTINUOUS PROCESS MACHINE OPERATOR Jase Jessica MD LABORATORY Final Result [facility] [address] [place] [address], [place] [phone] * (ABNORMAL) CBC W/DIFF AUTOMATED (08/23/2025 2:50 PM CONTINUOUS PROCESS MACHINE OPERATOR) [facility] WBC 5.96 4.5 - 11.0 x10'3/uL 08/23/2025 3:11 PM CONTINUOUS PROCESS MACHINE OPERATOR [facility] RBC 4.30(L) 4.70 - 6.10 x10'6/uL 08/23/2025 3:11 PM CONTINUOUS PROCESS MACHINE OPERATOR [facility] HGB 13.5(L) 14.0 - 18.0 G/DL 08/23/2025 3:11 PM CONTINUOUS PROCESS MACHINE OPERATOR [facility] HCT 41.2(L) 43.0 - 54.0 % 08/23/2025 3:11 PM CONTINUOUS PROCESS MACHINE OPERATOR [facility] MCV 95.8(H) 80.0 - 94.0 FL 08/23/2025 3:11 PM [facility] MCH 31.4(H) 27.0 - 31.0 PG 08/23/2025 3:11 PM [facility] MCHC 32.8 32.0 - 36.0 G/DL 08/23/2025 3:11 PM [facility] RDW 13.2 11.5 - 14.5 % 08/23/2025 3:11 PM [facility] PLT 188 130 - 400 x10'3/uL 08/23/2025 3:11 PM [facility] MPV 10.8 9.3 - 12.2 FL 08/23/2025 3:11 PM [facility] DIFFERENTIAL TYPE AUTOMATED DIFFERENTIAL 08/23/2025 3:11 PM [facility] NEUTROPHILS % 73.7 % 08/23/2025 3:11 PM [facility] LYMPHOCYTES % 17.4 % 08/23/2025 3:11 PM [facility] MONOCYTES % 6.9 % 08/23/2025 3:11 PM [facility] EOSINOPHILS 1.2 % 08/23/2025 3:11 PM [facility] BASOPHILS 0.5 % 08/23/2025 3:11 PM [facility] IMMATURE GRANS % 0.3 % 08/23/20 3:11 PM [facility] ABS. NEUTROPHILS 4.39 1.80 - 7.70 x10'3/uL 08/23/2025 3:11 PM [facility] ABS. LYMPHOCYTES 1.04 1.00 - 4.80 x10'3/uL 08/23/2025 3:11 PM CONTINUOUS PROCESS MACHINE OPERATOR [facility] ABS. MONOCYTES 0.41 0.30 - 0.82 x10'3/uL 08/23/2025 3:11 PM CONTINUOUS PROCESS MACHINE OPERATOR [facility] ABS. EOSINOPHILS 0.07 0.04 - 0.54 x10'3/uL 08/23/2025 3:11 PM CONTINUOUS PROCESS MACHINE OPERATOR [facility] ABS. BASOPHILS 0.03 0.01 - 0.08 x10'3/uL 08/23/2025 3:11 PM CONTINUOUS PROCESS MACHINE OPERATOR [facility] ABS. IMMATURE GRANULOCYTES 0.02 0.00 - 0.49 x10'3/uL 08/23/2025 3:11 PM CONTINUOUS PROCESS MACHINE OPERATOR [facility] BLOOD VENOUS BLOOD SPECIMEN / Unknown 08/23/2025 2:50 PM CONTINUOUS PROCESS MACHINE OPERATOR Jase Jessica MD LABORATORY Final Result [facility] [address] [place] [address], * (ABNORMAL) BASIC METABOLIC PANEL (08/23/2025 2:50 PM CONTINUOUS PROCESS MACHINE OPERATOR) [facility] GLUCOSE 87 70 - 99 MG/DL 08/23/2025 3:26 PM CONTINUOUS PROCESS MACHINE OPERATOR [facility] BUN 26(H) 7 - 18 MG/DL 08/23/2025 3:26 PM CONTINUOUS PROCESS MACHINE OPERATOR [facility] CREATININE S/P/B 1.18 0.7 - 1.3 MG/DL 08/23/2025 3:26 PM CONTINUOUS PROCESS MACHINE OPERATOR [facility] SODIUM S/P/B 142 136 - 145 MMOL/L 08/23/2025 3:26 PM CONTINUOUS PROCESS MACHINE OPERATOR [facility] POTASSIUM S/P/B 4.4 3.5 - 5.1 MMOL/L 08/23/2025 3:26 PM CONTINUOUS PROCESS MACHINE OPERATOR [facility] CHLORIDE S/P/B 113 97 - 115 MMOL/L 08/23/2025 3:26 PM CONTINUOUS PROCESS MACHINE OPERATOR [facility] CO2 26.1 21 - 32 MMOL/L 08/23/2025 3:26 PM CONTINUOUS PROCESS MACHINE OPERATOR [facility] CALCIUM S/P/B 9.1 8.5 - 10.1 MG/DL 08/23/2025 3:26 PM CONTINUOUS PROCESS MACHINE OPERATOR [facility] ANION GAP 2.9 2 - 10 MMOL/L 08/23/2025 3:26 PM CONTINUOUS PROCESS MACHINE OPERATOR [facility] BUN CREATININE RATIO 22.0 6 - 26 08/23/2025 3:26 PM [facility] GFR ESTIMATE 69(L) >90 ML/MIN/1.7 3 M2 08/23/2025 3:26 PM [facility] Comment: NOTE: eGFR is not calculated for patients <18 years of age or gender unknown. This is an estimated GFR calculation using the new CKD EPI creatinine equation without race and so does not require a correction factor for race. This estimated GFR should not be used for calculating drug doses. BLOOD VENOUS BLOOD SPECIMEN / Unknown 08/23/2025 2:50 PM CONTINUOUS PROCESS MACHINE OPERATOR Jase Jessica MD LABORATORY Final Result [facility] [address] [place] [address], [place] [phone] * ECG 12 lead (08/23/2025 1:43 PM CONTINUOUS PROCESS MACHINE OPERATOR) ECG QT 349 [facility] RAD ECG QTC 421 [facility] ([place]) RAD 08/23/2025 1:43 PM CONTINUOUS PROCESS MACHINE OPERATOR Narrative [facility] ([place] RAD - 08/24/2025 9:26 PM CONTINUOUS PROCESS MACHINE OPERATOR [facility] [place] [address] [place] [address] Test Date: 2025-08-23 Pat Name: DON VERDE Department: 41 Room: [id number] Gender: Male Wiring Technician: Randall : 1960 Requested By: CUCO STANLEY Order Number: [id number] Reading MD: Christian Palomino Measurements Intervals [place] Rate: 87 P: 0 [place]: 0 QRS: 23 QRSD: 90 T: 41 QT: 349 QTc: 421 Interpretive Statements ATRIAL FIBRILLATION ABNORMAL RHYTHM ECG No previous ECG available for comparison INUOUS PROCESS MACHINE OPERATOR Procedure Note Christian Palomino MD - 08/24/[address]25 [facility] Test Date: 2025-08-23 Pat Name: DON VERDE Department: 41 Room: [id number] Gender: Male Wiring Technician: Randall : 1960 Requested By: CUCO STANLEY Order Number: [id number] Reading MD: Christian Palomino Measurements Intervals [place] Rate: 87 P: 0 [place]: 0 QRS: 23 QRSD: 90 T: 41 QT: 349 QTc: 421 Interpretive Statements ATRIAL FIBRILLATION ABNORMAL RHYTHM ECG No previous ECG available for comparison INUOUS PROCESS MACHINE OPERATOR us Jase Jessica MD ECG ORDERABLES Final Result [facility] ([place] RAD from Last 3 Months Additional Health Concerns Active Problems Noted Date Diagnosed Date Autogenerated Problem 09/18/2025 Insurance [facility] Care Teams Physiognomist Relationship Specialty Start Date End Date Carmelo Lieberman MD PCP - General FAMILY PRACTICE 02/19/21 Kaycee Witt MD Consulting Physician CARDIOVASCULAR DISEASE 02/19/21
--- OUTSIDE RECORDS SUMMARY | 2025-09-23 18:27 | XMS_ITS | Clinical Summary ---
Author Organization [facility] Address [address] [place] [address] Care Team Providers Care Toolroom Checker Name Role Phone Unavailable Primary Care Provider Unavailabl e Source Comments [facility],non-owned Affiliates and Associated Physician Practices is amultiple site organization consisting of ambulatory clinics and hospital sitesin [place], [place], [place] and [place]. This disclosure is being madepursuant to the Care Everywhere program and may not contain all information available regarding this patient. Last updated 18.[facility] Allergies No known active allergies Medications * Be aware that medications may not be up to date on this document. Alwaysverify current medications with the patient. metoprolol tartrate (LOPRESSOR) 50 MG tablet TK 1 T PO BID 5 9 Active XARELTO 20 MG tablet TK 1 T PO QD WITH EVENING MEAL 5 9 Active loratadine (CLARITIN) 10 MG tablet TK 1 T PO QD 0 8 Active simvastatin (ZOCOR) 10 MG tablet Take 10 mg by mouth at bedtime Active levothyroxine (SYNTHROID) 100 MCG tablet Take 100 mcg by mouth daily before breakfast Active furosemide (LASIX) 20 MG tabletIndicatio ns:Edema Take 40 mg by mouth once daily Not taking his K+ Reasons: Edema Active predniSONE (DELTASONE) 20 MG tablet Take 1 tablet by mouth once daily 15 tablet 0 Active Additional Information Patient not taking.Reported on 07/10/2020 benzonatate (TESSALON) 100 MG capsule Take 1 capsule by mouth 3 times daily as needed for Cough 15 capsule 0 Active Additional Information Patient not taking.Reported on 07/10/2020 predniSONE (DELTASONE) 20 MG tablet Take 2 tablets by mouth once daily 10 tablet 0 Active benzonatate (TESSALON) 200 MG capsule Take 1 capsule by mouth 3 times daily as needed for Cough 30 capsule 0 Active azithromycin (ZITHROMAX) 250 MG tablet Take 2 tablets on day 1, then take 1 tablet daily for 4 days 6 tablet 1 Active methylPREDNISol one (MEDROL DOSEPAK) 4 MG tablet Take by mouth as directed Follow package insert dosing for six day supply. 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 11/08/2018 Atrial fibrillation 11/08/2018 Essential hypertension 11/08/2018 Intellectual functioning disability 11/08/2018 Generalized anxiety disorder 11/08/2018 Depressive disorder 11/08/2018 Social History Tobacco Use Types Packs/Day Years Used Date Smoking Tobacco: Never Smokeless Tobacco: Never Alcohol Use Standard Drinks/Week Comments Yes 1 (1 standard drink = 0.6 oz pur e alcohol) OCC Sex and Gender Information Value Date Recorded Sex Assigned at Not on file Legal Sex Male 6:32 AM SALES REPRESENT[employer] Gender Identity Not on file Sexual Orientation Not on file Last Filed Vital Signs Vital Sign Reading Time Taken Comments Blood Pressure 162/111 09/06/2021 1:24 PM [employer]ES REPRESENT[employer]IVE [employer] Pulse 75 09/06/2021 1:24 PM SALES REPRESENTATIVE [employer] Temperature 36.7 C (98.1 F) 09/06/2021 1:24 PM SALES REPRESENTATIVE [employer] Respiratory Rate 18 09/06/2021 1:24 PM SALES REPRESENTATIVE [employer] Oxygen Saturation 98% 09/06/2021 1:24 PM SALES REPRESENTATIVE [employer] Inhaled Oxygen Concentration - - Weight 133.8 kg (295 lb) 09/06/2021 1:24 PM SALES REPRESENTATIVE [employer] Height 188 cm (6' 2) 09/06/2021 1:24 PM SALES REPRESENTATIVE [employer] Body Mass Index 37.88 09/06/2021 1:24 PM SALES REPRESENTATIVE [employer] Plan of Treatment Health Maintenance Due Date Last Done Comments COLOGUARD (AGES 45-75) - COL ON CA SCREENING 1962 COLON MONITORING 1962 COLONOSCOPY - COLON CA SCREENING 1962 CT COLONOGRAPHY - COLON CA SCREENING 1962 Colorectal Cancer Screening 1962 FIT - COLON CA SCREENING 1962 FLEX SIG - COLON CA SCREENING 1962 HIV SCREENING 1977 HEPATITIS C SCREENING 03/10/1980 DTAP/TDAP/TD VACCINES (1 - Tdap) 1981 PNEUMOCOCCAL VACCINE 50+ (1 of 1 - PCV) 2012 ZOSTER VACCINE (1 of 2) 2012 SCREENING FOR DIABETES 06/09/2023 0, 03/11/2020 DEPRESSION SCREENING 10/10/2024 COVID-19 VACCINE (1 - 2024-2 6 season) 2025 INFLUENZA VACCINE (#1) 2025 Respiratory Syncytial Virus (RSV) Vaccine Pt: or over 60 yrs (1 - 1-dose 75+ series) 2037 HEPATITIS B VACCINE Aged Out No longe r eligible based on patient's age to complete this topic HIB VACCINE Aged Out No longer eligi ble based on patient's age to complete this topic HPV VACCINE Aged Out No longer eligi ble based on patient's age to complete this topic MENINGOCOCCAL (Group B) VACCINE SHARED DECISION-MAKING Aged Out No longer eligible based on patient's age to complete this topic MENINGOCOCCAL GROUPS A/C/Y/W VACCINE Aged Out No longer eligible b ased on patient's age to complete this topic Procedures Procedure Name Priority Date/Time Associated Diagnosis Comments COMPREHENSIVE METABOLIC PANEL STAT 06/09/2020 10:04 AM CDT from Last 3 Months or Most Recently Relevant to Health Maintenance Results * (ABNORMAL) COMPREHENSIVE METABOLIC PANEL (06/09/2020 10:04 AM CDT) Glucose 101 70 - 105 mg/dL 06/09/2020 10:29 AM CDT [facility] Sodium 141 136 - 145 mmol/L 06/09/2020 10:29 AM CDT [facility] Potassium 4.1 3.5 - 5.1 mmol/L 06/09/2020 10:29 AM CDT [facility] Chloride 108(H) 98 - 107 mmol/L 06/09/2020 10:29 AM CDT [facility] CO2 24 23 - 31 mmol/L 06/09/2020 10:29 AM CDT [facility] Calcium 9.2 8.4 - 10.4 mg/dL 06/09/2020 10:29 AM CDT [facility] Anion Gap 9 8 - 16 mmol/L 06/09/2020 10:29 AM CDT [facility] BUN 21 8.4 - 25.7 mg/dL 06/09/2020 10:29 AM T [facility] Creatinine 1.20 0.72 - 1.25 mg/dL 06/09/2020 10:29 AM CDT [facility] Alkaline Phosphatase 76 40 - 150 U/L 06/09/2020 10:29 AM CDT [facility] ALT 29 0 - 61 U/L 06/09/2020 [facility] AST 20 5 - 34 U/L 06/09/2020 10:29 AM [facility] Protein Total 6.9 6.4 - 8.3 gm/dL 06/09/2020 10:29 AM [facility] Albumin 3.9 3.5 - 5.2 gm/dL 06/09/2020 10:29 AM [facility] Bilirubin Total 0.3 0.2 - 1.2 mg/dL 06/09/2020 10:29 AM [facility] eGFR by MDRD >60 >60 mL/min/1.7 3m2 06/09/2020 10:29 AM [facility] eGFR by MDRD >60 >60 mL/min/1.7 3m2 06/09/2020 10:29 AM [facility] Blood BLOOD SPECIMEN / Unknown Venipuncture / Unknown 06/09/2020 10:04 AM CDT 06/09/2020 10:11 AM CDT Prabhu Sargent PA-C LAB - CHEMISTRY ORDERABLES Fin al Result [facility] [address] [place] [address] [id number] from Last 3 Months or Most Recently Relevant to Health Maintenance Insurance MEDICAID - [place] [employer]
[2025-09-23] MEDS: SODIUM CHLORIDE 0.9% IV 1,000 ML 125 ML IV CONT (18:53)
[2025-09-23] MEDS: ASPIRIN 300 MG SUPPOSITORY RECTAL (18:53)
--- NOTE | 2025-09-23 20:58 | PC.NURSE ---
This RN spoke with Elaina KOWALSKI regarding pt's BP. PRN medication ordered.
[2025-09-23] MEDS: METOPROLOL TARTRATE INJ 5 MG/5 ML VIAL IV PUSH ×2 (21:03→21:15)
--- NOTE | 2025-09-23 21:30 | P.HP_ITS ---
H&P: HPI History of Present Illness Date/Time: 09/23/25 21:30 Chief Complaint: AMS, Extremity Weakness, Dysarthria Narrative: 65 y/o M with PMH of HTN, HLD, AFib no longer on anticoagulation and hypothyroidism presents here with altered mental status, extremity weakness, and dysarthria. The patient presents here from home via EMS on 09/23 for further evaluation of altered mental status, extremity weakness, dysarthria, and ground level fall. HPI obtained through chart review and patient report, limited due to aphasia/dysarthria. Per the patient, he went to bed in his normal state of health at 11:00 p.m. last night on 09/22. Woke up this morning with symptoms, unclear what time he discovered symptoms this morning. However per family report to the ED provider, the patient was in bed all day and they did not realize he had new neurological symptoms until he tried to get out of bed and sustained a ground level fall. The patient reports he tripped and did not lose consciousness. Denied head strike in the ED. patient is normally neurologically intact and A&O x4 with no previous history of stroke. He arrived to the emergency department with significant weakness to his right upper extremity and right lower extremity. Significant expressive aphasia and dysarthria. Patient denied changes to his vision. Did endorse difficulty swallowing. He does have a history of atrial fibrillation and follows with a chiropractor assistant at [facility]. He reports he was taken off of his blood that are approximately 1-2 weeks ago. Unclear why as he is unable to provide history at this time due to his speech barrier. Initial VS at presentation: 98.2? F, HR 100, R 18, 169/116, and 98% on RA. ED workup showed: No leukocytosis, no anemia, normal coags, no significant electrolyte derangements, creatinine 1.23 and GFR 59, glucose 107, lactic 1.0, initial troponin negative, UA unremarkable. Head/neck CTA showed no hemodynamically significant stenosis of the cervical or intracranial arterial v asculature. EKG showed AFib with RVR, rate 105. Review of Systems Review of Systems: All systems reviewed & are unremarkable except as noted in HPI and below PMFSH Past Medical History Medical History HLD (hyperlipidemia) Hypothyroidism Atrial fibrillation Meds Home Medications and Allergies Allergies Allergy/AdvReac Type Severity Reaction Status Date / Time No Known Allergies Allergy Verified 09/23/25 18:09 Vital Signs Vital Signs - 24 hr 09/23/25 15:37 09/23/25 17:18 09/23/25 19:10 Temperature 98.2 F 98.4 F Pulse Rate 100 96 87 Respiratory Rate 18 18 20 Blood Pressure 169/116 H 161/122 H 159/107 H Pulse Oximetry 98 99 100 Exam Const: General: comfortable Other: , male, appearance consistent with stated age. Uncomfortable, however appears more so emotional versus physical. HENMT: Face/Nose/Sinus: Normal nares present Other: Modest secretions, appears to be having difficulty managing. Eyes: General: appearance normal, both eyes and all related structures Sclera: sclerae normal Other: Very mild gaze palsy to the right eye, somewhat limited lateral gaze however is able to cross midline. PERRLA Resp: Effort & Inspection: normal respiratory effort Auscultation: clear to auscultation bilaterally Cardio: Rate: regular rate Rhythm: abnormal rhythm (Consistent with AFib) Other: S1-S2 present without murmur, rub, ectopy GI: Other: Abdomen soft, nondistended, nontender. Normoactive bowel sounds in all quadrants. Skin: General skin exam: no rashes or lesions noted Wounds: no wounds Other: Significant ecchymosis to the left lower extremity starting at calf to the distal ankles. Neuro: Other: Initial NIHSS 1a: Level of Consciousness - 0 1b: LOC Questions - 1, dysarthria 1c:?LOC Tasks -1, able to perform one ta sk 2:?Best Gaze - 1, partial gaze can cross midline but does not appear to full extend right eye laterally when compared to his EOM on the left 3:?Visual?Cantor - 1, effecting right ey e 4: Facial Palsy - 3, unable to smile wel l or grimace brows 5a: Motor Arm?R - 3, some muscle tone bu t cannot lift to gravity 5b: Motor Arm L - 0 6a:?Motor Leg R - 2, can lift approx 1 i n from bed very briefly 6a:?Motor Leg L - 0 7: Limb Ataxia - 0 unable to perform tas ks/did not comprehend well 8: Sensation - 0 9:?Language/Aphasia - 2, severe, minimal speech understandable, does okay with yes/no 10:?Dysarthria? - 2 11: Extinction and Inattention 0 Total: 16 Patient able to nod yes and no to brief questions. Able to answer questions appropriately when given shorter traces or offered answers that he can shake his head yes or no to. Minimal speech able to be produced. Not able to say more than 1-2 words together. Appears to not be tolerating secretions well. Unable to smile or grimace to better assess for facial palsy but when the patient open his mouth there did not appear to be significant weakness on 1 side compared to the other but patient's movements and speech both appear weak. Right upper extremity has some muscle tone but is unable to be lifted from the bed. Right lower extremity can ?very briefly from the bed. Left upper extremity weak but no drift. Left upper extremity does not appear to have any deficits. Significant dysarthria and expressive aphasia making history difficult. Orientated to self, place, situation. Extrem: Other: Significant ecchymosis to the left lower extremity and minimal swelling to the left ankle. No tenderness with palpation or range of motion. Psych: Other: Mental status appears intact. Patient distressed however due to her diagnosis. Episodes of crying he/sadness during exam. Results Labs Labs: Short CBC 09/23/25 Range/Units 15:47 WBC 8.2 (4.5-10.0) K/mm3 Hgb 14.6 (14.0-18.0) g/dL Hct 43.6 (42.0-52.0) % Plt Count 216 (150-375) k/mm3 BMP 09/23/25 15:47 Sodium 138 Potassium 4.5 Chloride 106 Carbon Dioxide 25 BUN 27 H Creatinine 1.23 Glucose 101 Calcium 9.8 Cardiac Enzymes 09/23/25 Range/Units 15:47 Troponin I < 0.012 (0.000-0.034) ng/mL Liver Function 09/23/25 Range/Units 15:47 Total Bilirubin 0.7 (0.2-1.3) mg/dL AST 30 (17-59) U/L ALT 28 (6-50) U/L Alkaline Phosphatase 78 (38-126) U/L Albumin 4.6 (3.5-5.1) g/dL Urine 09/23/25 Range/Units 16:13 Urine Color Yellow (Yellow) Urine Appearance Clear (Clear) Urine pH 5.5 (5.0-9.0) Ur Specific Commodore 1.013 (1.001-1.035) Urine Protein Negative (Negative) mg/dL Urine Glucose (UA) Negative (Negative) mg/dL Quality VTE Prophylaxis VTE prophylaxis: mechanical ordered Assessment and Plan Assessment and plan (1) Right sided weakness: Code(s): R53.1 - Weakness Status: Acute Assessment and Plan: New deficits of expressive aphasia, dysarthria, right upper extremity weakness, right lower extremity weakness discovered by family this afternoon on 09/23. LKW at 11 p.m. when he went to sleep night prior on 09/22. Patient reports he woke with symptoms but it appears he was not able to get out of bed to alert someone. Initial inpatient assessment showed the following deficits: severe expressive aphasia, severe dysarthria, severe right upper extremity weakness, right lower extremity weakness, right lateral gaze deficit but able to overcome midline, and partial hemianopia. Patient is not a candidate for TNK given timeframe. Not candidate for thrombectomy as there was no LVO on CTA that was obtained in the ED on 09/23. Case was discussed with Dr. Woods, neurologist, via the ED provider, Dr. Cristina. Neurology okay to accept here and recommended starting Plavix and aspirin, will see in the a.m.. However patient failed his swallow test in the emergency department, case was rediscussed with Neurology and he recommended aspirin suppository only. - admission for observation and telemetry to IMU - CTA head/neck unremarkable on 09/23 - neurology consulted - brain MRI w/wo ordered - echo w/Bubble ordered - neuro checks Q4 - failed swallow study in the ED on 09/23, made NPO. Hypoglycemia protocol p.r.n. and Accu-Cheks q.6 hours. - PT/OT/ST to eval and treat - monitor daily labs. check lipid panel, A1C, and TSH - up ad marixa or fall precautions - continue statin and start Plavix 75 mg PO/ASA 81 mg daily when appropriate/able to, currently NPO. - history of AFib, telemetry monitoring (2) Expressive aphasia: Code(s): R47.01 - Aphasia Status: Acute Assessment and Plan: Patient failed swallow study in the emergency department. Made NPO. Changes in swallowing suspected to be secondary to acute CVA. - speech evaluation - hypoglycemia protocol prn and Accu-Cheks Q6h (3) Atrial fibrillation: Qualifiers: Atrial fibrillation type: unspecified chronic Qualified Code(s): I48.20 - Chronic atrial fibrillation, unspecified Code(s): I48.91 - Unspecified atrial fibrillation Status: Chronic Assessment and Plan: Patient has history of chronic atrial fibrillation on diltiazem and metoprolol. No longer on anticoagulation, per patient report it was discontinued approximately 1-2 weeks ago. Initial EKG in the ED showed AFib RVR, rate 105. HR now rate controlled in the 90s without intervention. - currently failed swallow study, home medications held until speech evaluation - metoprolol 5 mg IV push for HR sustained greater than 115 x3. - telemetry monitoring (4) Hypothyroidism: Qualifiers: Hypothyroidism type: unspecified Qualified Code(s): E03.9 - Hypothyroidism, unspecified Code(s): E03.9 - Hypothyroidism, unspecified Status: Chronic Assessment and Plan: History of hypothyroidism on Synthroid. - check TSH - continue Synthroid IV, currently NPO (5) HLD (hyperlipidemia): Qualifiers: Hyperlipidemia type: unspecified Qualified Code(s): E78.5 - Hyperlipidemia, unspecified Code(s): E78.5 - Hyperlipidemia, unspecified Status: Chronic Assessment and Plan: History of hyperlipidemia on simvastatin 40 mg daily. - currently NPO due to failed swallow study. Resume when appropriate. Plan Diet: NPO GI Prophylaxis: N/a DVT Prophylaxis: SCDs IV fluids: NS 125 mL/hr Lines/Tubes: pIV Code Status: full code Prior Studies I have reviewed the following patient records and this information was taken into consideration when formulating the assessment and plan.: previous labs, previous ER visits, previous hospitalizations and previous clinic visits Time Spent with Patient Time with patient: less than 45 minutes Hospitalist MIPS Advance Care Plan I have confirmed that the patient's Advanced Care Plan is present, code status is documented, or surrogate decision maker is listed in patient medical record.: Yes Medication Reconciliation I have utilized all available resources to obtain, update and review the patients current medications (includes all prescriptions, OTC, herbals, cannabis, and nutritional supplements).: Yes
--- NOTE | 2025-09-23 22:47 | WPCEDHO ---
ED Hand Off Checklist All vitals saved: Y IV Site documented: Y All med administrations documented: Y Triage Note Triage Note Pt BIBEMS, coming from home. 09/23/25 15:37 Patient unwitnessed fall 30 minutes ago. Right arm and leg weakness and drift with slurred speech. Family states that he was in bed all day and did not notice the symptoms of patient until after he tried getting out of bed so there is no LKN. Family found patient on carpet of bed. -head injury, -LOC, Patient was A /Ox2/3 when EMS arrived but now he is A/Ox1 Patient is normally A/Ox4 and ambulatory with no speech issues. Pt also c/o RLQ pain from an abdominal hernia. BG 115, 147/114 , 101 HR, 18 RR, 95% RA Allergies No Known Allergies Allergy (Verified 09/23/25 18:09) Current Diagnoses Hypothyroidism, unspecified (09/23/25) Hyperlipidemia, unspecified (09/23/25) Chronic atrial fibrillation, unspecified (09/23/25) Aphasia (09/23/25) Weakness (09/23/25) Active Medications including assessments/comments Sodium Chloride (Normal Saline Iv) 1,000 mls @ 125 mls/hr IV CONT .Q8H SCOTTIE Last Admin: 09/23/25 18:53 Dose: 125 mls/hr Documented By: ZARI Infusion/Titration Document 09/23/25 18:53 ZARI (Rec: 09/23/25 18:54 ZARI [id number]) Intake IV Site Peripheral Access Right Antecubital Container Volume 1,000 Waste Amount 0 Dosing Infusion Rate 125 Cumulative Dose Not Applicable Increase/Decrease Started Elapsed Time Elapsed Time ( 0m minutes) Metoprolol Tartrate (Metoprolol Tartrate Inj 5 Mg/5 Ml Vial) 5 mg IV PUSH Q5M PRN PRN Reason: HR sustained >115 Last Admin: 09/23/25 21:15 Dose: 5 mg Documented By: COOPER KERN Pulse Assessment Document 09/23/25 21:15 COOPER (Rec: 09/23/25 21:18 COOPER [id number]) Pulse Pulse Rate (60-100) 84 Rhythm Regular Admin: 09/23/25 21:03 Dose: 5 mg Documented By: COOPER KERN Pulse Assessment Document 09/23/25 21:03 COOPER (Rec: 09/23/25 21:03 HNK [id number]) Pulse Pulse Rate (60-100) 86 Rhythm Regular Administered/Completed Medications Discontinued Medications Aspirin (Aspirin 325 Mg Tablet) 325 mg PO ONCE STA Stop: 09/23/25 17:47 Last Admin: 09/23/25 18:47 Dose: Not Given Documented By: ZARI Non-Admin Reason: patient NPO Aspirin (Aspirin 300 Mg Suppository) 300 mg RECTAL ONCE ONE Stop: 09/23/25 18:06 Last Admin: 09/23/25 18:53 Dose: 300 mg Documented By: ZARI Clopidogrel Bisulfate (Clopidogrel Bisulfate 75 Mg Tablet) 75 mg PO ONCE STA Stop: 09/23/25 17:47 Last Admin: 09/23/25 18:47 Dose: Not Given Documented By: ZARI Non-Admin Reason: patient NPO Hydralazine HCl (Hydralazine Hcl 20 Mg/Ml Vial) 5 mg IV PUSH Q5M PRN PRN Reason: systolic >180, diastolic >100 Last Admin: 09/23/25 21:36 Dose: 5 mg Documented By: Admin: 09/23/25 21:24 Dose: 5 mg Documented By: COOPER Notes 09/23/25 20:58 Nurse Note by Marlyn Clayton This RN spoke with Elaina KOWALSKI regarding pt's BP. PRN medication ordered. Initialized on 09/23/25 20:58 - END OF NOTE 09/23/25 18:06 Nurse Note by Fiona Escudero. patient is unable to do swallow study test on due to slurred speech, facial droop, tongue weakness. MD aware, patient made MD TUNDE ordering alternative medications. Initialized on 09/23/25 18:06 - END OF NOTE 09/23/25 16:22 Nurse Note by Fiona Escudero called lab to add troponin to labwork already sent down Initialized on 09/23/25 16:22 - END OF NOTE Interventions/Assessments IV / Saline Lock, Insert Start: 09/23/25 15:46 Freq: STAT Status: Active Protocol: Document 09/23/25 15:46 ZARI (Rec: 09/23/25 16:05 ZARI [id number]) IV Assessment Peripheral Access Right Antecubital IV Catheter Access Initiated IV Insertion Date 09/23/25 IV Insertion Time 16:04 Catheter Gauge 18 IV Site Assessment WNL IV Care and WNL Maintenance IV Line Assessment Start: 09/23/25 15:37 Freq: Status: Active Protocol: Document 09/23/25 15:37 AJW (Rec: 09/23/25 17:53 AJW [id number]) IV Assessment Peripheral Access Right Antecubital IV Catheter Access Continued IV Site Assessment WNL IV Care and WNL Maintenance PA: Musculoskeletal Assessment Start: 09/23/25 15:37 Freq: Status: Active Protocol: Document 09/23/25 15:37 AJW (Rec: 09/23/25 17:53 AJW [id number]) Musculoskeletal Assessment Right Leg(s) Musculoskeletal Weakness Symptoms Range of Motion Limited Range of Motion Right Arm(s) Musculoskeletal Weakness Symptoms Range of Motion Limited Range of Motion PA: Neurological Assessment Start: 09/23/25 15:37 Freq: Status: Active Protocol: Document 09/23/25 15:37 AJW (Rec: 09/23/25 17:53 AJW [id number]) Neurological Assessment Level of Awake Consciousness Arousable to Verbal Orientation Unable to Assess Neurological Weakness, Focal Symptoms Behavior Anxious Ability to Maintain Unable to Assess Balance Speech Pattern Aphasic,Garbled,Inappropriate,Slurred [place] Coma Scale Eyes Open Verbal Nonsensical Speech Motor Follows Commands Moses Coma Total 13 Score Last Vital Signs Temperature 98.4 F 09/23/25 17:18 Pulse Rate 93 09/23/25 22:41 Respiratory Rate 21 H 09/23/25 22:41 Pulse Oximetry 98 09/23/25 22:41 Blood Pressure 152/103 H 09/23/25 22:41 Blood Pressure Mean 117 09/23/25 22:41 Weight 120 kg 09/23/25 15:37 Last Result - Abnormals Only RBC 4.53 M/mm3 (4.6-6.20) L 09/23/25 15:47 MPV 10.5 fl (7.4-10.4) H 09/23/25 15:47 Neut % (Auto) 83.6 % (45.5-73.1) H 09/23/25 15:47 Lymph % (Auto) 9.4 % (18.3-44.2) L 09/23/25 15:47 Lymph # (Auto) 0.77 K/mm3 (0.9-3.2) L 09/23/25 15:47 Absolute Neuts (auto) 6.8 K/mm3 (1.3-6.7) H 09/23/25 15:47 BUN 27 mg/dL (9-20) H 09/23/25 15:47 POC Capillary Glucose 107 mg/dl (65-105) H 09/23/25 15:44 Most Recent Suicide Severity Rating Suicide Severity Rating NO RISK INDICATED 09/23/25 15:37
[2025-09-24] VITALS (15 sets, daily range): BP systolic 130–187; BP diastolic 82–125; PULSE 91–125; RESP 16–24; TEMP 35.8–36.8; O2SAT 96–100
--- NOTE | 2025-09-24 | ECHO_ITS ---
Patient Info Name: Don Neil Age: 65 years : 1960 Gender: Male Ht: 73 in Wt: 264 lbs BSA: 2.52 m2 HR: 93 bpm BP: 153 / 99 mmHg Heart Rhythm: Atrial Fibrillation Technical Quality: Fair Exam Date: 09/24/2025 2:26 PM Patient Status: I Admit Date: 09/23/2025 Exam Type: CA echo dop bubble study w con Complete two-dimentional, color flow and Doppler transthoracic echocardiogram is performed with agitated saline and with contrast to opacify the left ventricle and to improve the delineation of the left ventricle endocardial borders. Staff Referring Physician: Elaina Ugarte Track Patrol: Yamilet Gupta Attending Provider: Kirk Thomas Contrast/Agitated Saline Contrast/Ag. Saline: Definity Amount: 2.00 ml Administered By: Yamilet Gupta Existing IV Access: Yes IV Access Condition: patent with no signs of infiltration Contrast/Ag. Saline: Agitated Saline Amount: 20.00 ml Existing IV Access: Yes IV Access Condition: patent with no signs of infiltration Summary 1. Technically challenging exam, definity contrast utilized to improve visualization. 2. Normal left ventricular size with vigorous, hyperdynamic appearing systolic function. 3. Dilated left atrium. 4. Saline contrast injection demonstrated no intracardiac shunt. 5. Atrial fibrillation. Left Ventricle Left ventricular chamber dimension is normal. Left ventricular systolic function is normal, estimated at 65-70. The left ventricular diastolic function is indeterminate. Right Ventricle Right ventricular chamber dimension is normal. Left Atria Left atrial chamber dimension is moderately enlarged. Right Atria Right atrial chamber dimension is not well visualized. Atrial Septum Intact interatrial septum visualized by agitated saline imaging. Aortic Valve The aortic valve is normal. Pulmonic Valve The pulmonic valve is not well visualized. Mitral Valve The mitral valve has normal leaflets. Tricuspid Valve The tricuspid valve leaflets are not well visualized. Pericardium/Pleural The pericardium appears normal. Aorta The aortic root size at the sinus of Valsalva is normal. Left Ventricular Outflow Tract Name Value Normal LVOT 2D LVOT Diameter 2.3 cm LVOT Doppler LVOT Peak Velocity 80 cm/s LVOT Peak Gradient 2 mmHg LVOT Mean Gradient 1 mmHg LVOT VTI 15 cm LVOT VTI/AV VTI Ratio 0.9 LVOT Stroke Volume 65 ml LVOT CO 4.9 l/min LVOT CI 2.0 l/min/m2 Pulmonic Valve Name Value Normal RVOT Doppler RVOT Peak Velocity 79 cm/s RVOT Peak Gradient 2 mmHg PV Doppler PV Peak Velocity 87 cm/s PV Peak Gradient 2 mmHg Mitral Valve Name Value Normal MV Diastolic Function MV E Peak Velocity 86 cm/s MV A Peak Velocity 2 cm/s MV E/A 40.2 MV Decel Time (PW) 113 ms MV Annular TDI MV E/e' (Septal) 6.6 MV E/e' (Lateral) 5.9 MV E/e' (Average) 6.2 Tricuspid Valve Name Value Normal TV Annular TDI TV Lateral Karine s' Velocity 12.5 cm/s >=9.5 Aorta Name Value Normal Ascending Aorta Ao Root Diameter (MM) 4.1 cm Ao Root Diam Index (MM) 1.6 cm/m2 Aortic Valve Name Value Normal AV Doppler AV Peak Velocity 108 cm/s AV Peak Gradient 4 mmHg AV Mean Gradient 2 mmHg AV VTI 16 cm AV Area (Cont Eq VTI) 4.0 cm2 >=3.0 AV Area (Cont Eq Khoi) 3.2 cm2 AV DI (Khoi) 0.74 AV Regurgitation 2D LVOT Area 4.3 cm2 Ventricles Name Value Normal LV Dimensions 2D/MM IVS Diastolic Thickness (2D) 0.8 cm 0.6-1.0 LVID Diastole (2D) 7.0 cm 4.2-5.8 LVIW Diastolic Thickness (2D) 0.8 cm 0.6-1.0 LVID Systole (2D) 5.0 cm 2.5-4.0 LVOT Diameter 2.3 cm LV Mass (2D Cubed) 243.90 g 88.00-224.00 LV Mass Index (2D Cubed) 97 g/m2 49-115 Relative Wall Thickness (2D) 0.23 <=0.42 LV Fractional Shortening/Ejection Fraction 2D/MM LV Fractional Shortening (2D) 29 % 25-43 LV EF (2D Teichholz) 54 % LV Diastolic Volume (4C MOD) 119 ml LV EF (4C MOD) 43 % LV Diastolic Volume (2C MOD) 88 ml LV EF (2C MOD) 55 % LV Diastolic Volume (BP MOD) 106 ml 62-150 LV Diastolic Volume Index (BP MOD) 42 ml/m2 34-74 LV Systolic Volume (BP MOD) 56 ml 21-61 LV Systolic Volume Index (BP MOD) 22 ml/m2 11-31 LV EF (BP MOD) 47 % 52-72 LV Diastolic Length (4C) 9.3 cm LV Systolic Length (4C) 8.3 cm LV Stroke Volume (4C MOD) 51 ml Atria Name Value Normal LA Dimensions LA Dimension (MM) 5.0 cm 3.0-4.0 LA Volume (4C A-L) 139 ml LA Volume (BP A-L) 132 ml RA Dimensions RA Area (4C) 24.0 cm2 <=18.0 Report Signatures
[2025-09-24] MEDS: SODIUM CHLORIDE 0.9% IV 1,000 ML 125 ML IV CONT ×3 (03:47→21:30)
[2025-09-24 04:38] LABS: Hematocrit 41.1 % (42.0-52.0); Hemoglobin 13.9 g/dL (14.0-18.0); Immature Granulocyte Percent A 0.5 % (0-0.5); Lymphocytes Absolute Auto 1.03 K/mm3 (0.9-3.2); Mean Corpuscular HGB Conc 33.8 g/dl (32-36); Mean Corpuscular Hemoglobin 32.4 pg (26-34); Mean Corpuscular Volume 95.8 fl (80-100); Nucleated Red Blood Cells Absolute Auto 0.000 K/mm3 (0.0-0.012); Nucleated Red Blood Cells Perc 0.0 % (0.0-0.2); Platelet Count Result 196 k/mm3 (150-375); Red Blood Count 4.29 M/mm3 (4.6-6.20); White Blood Count 6.5 K/mm3 (4.5-10.0)
[2025-09-24 04:48] LABS: Hemoglobin A1C 5.4 % (<5.7)
[2025-09-24 05:04] LABS: Anion Gap 4 mmol/L (4-12); Blood Urea Nitrogen 18 mg/dL (9-20); Calcium 9.5 mg/dL (8.4-10.2); Carbon Dioxide 25 mmol/L (22-30); Chloride 109 mmol/L (98-107); Cholesterol 196 mg/dL (0-200); Estimated CRCL calculation 91 ml/min; Estimated Glomerular Filt Rate > 60; Glucose 96 mg/dL (65-110); HDL Direct 54 mg/dL; Potassium 3.8 mmol/L (3.4-5.0); Sodium 138 mmol/L (137-145); Triglycerides 50 mg/dL (<150)
[2025-09-24 05:20] LABS: Thyroid Stimulating Hormone Reflex 7.840 uIU/mL (0.465-4.68)
[2025-09-24 06:09] LABS: Free T4 Free Thyroxine Reflex 0.77 ng/dL (0.78-2.19)
--- NOTE | 2025-09-24 08:43 | PCSTNOTE ---
Please refer to the Bedside Swallow Evaluation in the EMR. Please note, silent aspiration cannot be ruled out at bedside. The patient is a 65 year old male admitted with changes in AMS and possible CVA with right side weakness, right labial/facial weakness. Orders received to complete a BSE. The patient is positioned upright in a chair and presented the following consistencies: 3cc/straw thin liquid, 5cc/tsp thin liquid, cup trials thin liquid, pudding, and solid cracker consistency. Oral Mechanism: Patient demonstrates right labial/facial weakness with noted loss of secretions and drooling. Patient demonstrates limited labial seal and lingual ROM for coordination, strength and direction. Oral stage: The patient requires extra time for bolus formation and transit posteriorly along the tongue base but able to clear without residual. Pharyngeal Stage: When presented all consistencies swallow initiation appeared timely with good laryngeal elevation. When presented cup trials thin liquid patient had a notable cough response following the swallow. Maybe secondary to bolus size and oral control resulting in loss of bolus during swallow. Recommend 1. NPO till MBS 2. Speech consult for communicaiton evaluation for aphasia, dysarthria, and oral motor movement.
--- NOTE | 2025-09-24 09:24 | P.PNIM_ITS ---
Assessment and Plan Assessment and Plan (1) Right sided weakness: Code(s): R53.1 - Weakness Status: Acute Assessment and Plan: New deficits of expressive aphasia, dysarthria, right upper extremity weakness, right lower extremity weakness discovered by family this afternoon on 09/23. LKW at 11 p.m. when he went to sleep night prior on 09/22. Patient reports he woke with symptoms but it appears he was not able to get out of bed to alert someone. Initial inpatient assessment showed the following deficits: severe expressive aphasia, severe dysarthria, severe right upper extremity weakness, right lower extremity weakness, right lateral gaze deficit but able to overcome midline, and partial hemianopia. Patient is not a candidate for TNK given timeframe. Not candidate for thrombectomy as there was no LVO on CTA that was obtained in the ED on 09/23. Case was discussed with Dr. Woods, neurologist, via the ED provider, Dr. Cristina. Neurology okay to accept here and recommended starting Plavix and aspirin, will see in the a.m.. However patient failed his swallow test in the emergency department, case was rediscussed with Neurology and he recommended aspirin suppository only. - admission for observation and telemetry to IMU - CTA head/neck unremarkable on 09/23 - neurology consulted - brain MRI w/wo ordered - echo w/Bubble ordered - neuro checks Q4 - failed swallow study in the ED on 09/23, made NPO. Hypoglycemia protocol p.r.n. and Accu-Cheks q.6 hours. - PT/OT/ST to eval and treat - monitor daily labs. check lipid panel, A1C, and TSH - up ad marixa or fall precautions - continue statin and start Plavix 75 mg PO/ASA 81 mg daily when appropriate/able to, currently NPO. - history of AFib, telemetry monitoring (2) Expressive aphasia: Code(s): R47.01 - Aphasia Status: Acute Assessment and Plan: Patient failed swallow study in the emergency department. Made NPO. Changes in swallowing suspected to be secondary to acute CVA. - speech evaluation - hypoglycemia protocol prn and Accu-Cheks Q6h (3) Atrial fibrillation: Qualifiers: Atrial fibrillation type: unspecified chronic Qualified Code(s): I48.20 - Chronic atrial fibrillation, unspecified Code(s): I48.91 - Unspecified atrial fibrillation Status: Chronic Assessment and Plan: Patient has history of chronic atrial fibrillation on diltiazem and metoprolol. No longer on anticoagulation, per patient report it was discontinued approximately 1-2 weeks ago. Initial EKG in the ED showed AFib RVR, rate 105. HR now rate controlled in the 90s without intervention. - currently failed swallow study, home medications held until speech evaluation - metoprolol 5 mg IV push for HR sustained greater than 115 x3. - telemetry monitoring (4) Hypothyroidism: Qualifiers: Hypothyroidism type: unspecified Qualified Code(s): E03.9 - Hypothyroidism, unspecified Code(s): E03.9 - Hypothyroidism, unspecified Status: Chronic Assessment and Plan: History of hypothyroidism on Synthroid. - check TSH - continue Synthroid IV, currently NPO (5) HLD (hyperlipidemia): Qualifiers: Hyperlipidemia type: unspecified Qualified Code(s): E78.5 - Hyperlipidemia, unspecified Code(s): E78.5 - Hyperlipidemia, unspecified Status: Chronic Assessment and Plan: History of hyperlipidemia on simvastatin 40 mg daily. - currently NPO due to failed swallow study. Resume when appropriate. Plan Diet: NPO GI Prophylaxis: N/a DVT Prophylaxis: SCDs IV fluids: NS 125 mL/hr Lines/Tubes: pIV Code Status: full code Subjective Date/time seen: 09/24/25 09:24 Interval history: Patient has evidence of right hemiparesis. Patient is unable to give any pertinent history .Neurology consulted. Patient has a history of AFib but for unknown reason Xarelto has been stopped. Unable to reach his sibling and left a voicemail Review of Systems Review of Systems: All systems reviewed & are unremarkable except as noted in HPI and below Exam Const: General: comfortable Other: , male, appearance consistent with stated age. Uncomfortable, however appears more so emotional versus physical. HENMT: Face/Nose/Sinus: Normal nares present Other: Modest secretions, appears to be having difficulty managing. Eyes: General: appearance normal, both eyes and all related structures Sclera: sclerae normal Other: Very mild gaze palsy to the right eye, somewhat limited lateral gaze however is able to cross midline. PERRLA Resp: Effort & Inspection: normal respiratory effort Auscultation: clear to auscultation bilaterally Cardio: Rate: regular rate Rhythm: abnormal rhythm (Consistent with AFib) Other: S1-S2 present without murmur, rub, ectopy GI: Other: Abdomen soft, nondistended, nontender. Normoactive bowel sounds in all quadrants. Skin: General skin exam: no rashes or lesions noted Wounds: no wounds Other: Significant ecchymosis to the left lower extremity starting at calf to the distal ankles. Neuro: Other: Initial NIHSS 1a: Level of Consciousness - 0 1b: LOC Questions - 1, dysarthria 1c:?LOC Tasks -1, able to perform one ta sk 2:?Best Gaze - 1, partial gaze can cross midline but does not appear to full extend right eye laterally when compared to his EOM on the left 3:?Visual?Cantor - 1, effecting right ey e 4: Facial Palsy - 3, unable to smile wel l or grimace brows 5a: Motor Arm?R - 3, some muscle tone bu t cannot lift to gravity 5b: Motor Arm L - 0 6a:?Motor Leg R - 2, can lift approx 1 i n from bed very briefly 6a:?Motor Leg L - 0 7: Limb Ataxia - 0 unable to perform tas ks/did not comprehend well 8: Sensation - 0 9:?Language/Aphasia - 2, severe, minimal speech understandable, does okay with yes/no 10:?Dysarthria? - 2 11: Extinction and Inattention 0 Total: 16 Patient able to nod yes and no to brief questions. Able to answer questions appropriately when given shorter traces or offered answers that he can shake his head yes or no to. Minimal speech able to be produced. Not able to say more than 1-2 words together. Appears to not be tolerating secretions well. Unable to smile or grimace to better assess for facial palsy but when the patient open his mouth there did not appear to be significant weakness on 1 side compared to the other but patient's movements and speech both appear weak. Right upper extremity has some muscle tone but is unable to be lifted from the bed. Right l ower extremity can ?very briefly from the bed. Left upper extremity weak but no drift. Left upper extremity does not appear to have any deficits. Significant dysarthria and expressive aphasia making history difficult. Orientated to self, place, situation. Extrem: Other: Significant ecchymosis to the left lower extremity and minimal swelling to the left ankle. No tenderness with palpation or range of motion. Psych: Other: Mental status appears intact. Patient distressed however due to her diagnosis. Episodes of crying he/sadness during exam. Objective Data Vital Signs Vital Signs: Vital Signs - 24 hr 09/23/25 15:37 09/23/25 17:18 09/23/25 19:10 Temperature 98.2 F 98.4 F Pulse Rate 100 96 87 Respiratory Rate 18 18 20 Blood Pressure 169/116 H 161/122 H 159/107 H Pulse Oximetry 98 99 100 Oxygen Delivery 09/23/25 20:01 09/23/25 20:02 09/23/25 20:15 Temperature Pulse Rate 93 86 87 Respiratory Rate 16 16 17 Blood Pressure 158/106 H Pulse Oximetry 98 97 98 Oxygen Delivery 09/23/25 20:16 09/23/25 20:26 09/23/25 20:30 Temperature Pulse Rate 88 94 100 Respiratory Rate 15 16 16 Blood Pressure 155/110 H 161/116 H Pulse Oximetry 98 99 99 Oxygen Delivery 09/23/25 20:37 09/23/25 20:49 09/23/25 21:01 Temperature Pulse Rate 90 91 91 Respiratory Rate 20 17 20 Blood Pressure 164/107 H 155/109 H Pulse Oximetry 99 97 100 Oxygen Delivery 09/23/25 21:03 09/23/25 21:15 09/23/25 21:17 Temperature Pulse Rate 86 84 82 Respiratory Rate 16 Blood Pressure 158/108 H Pulse Oximetry 97 Oxygen Delivery 09/23/25 21:51 09/23/25 22:31 09/23/25 22:41 Temperature Pulse Rate 95 96 93 Respiratory Rate 20 17 21 H Blood Pressure 163/117 H 160/114 H 152/103 H Pulse Oximetry 97 98 98 Oxygen Delivery 09/23/25 23:16 09/24/25 00:00 09/24/25 00:00 Temperature 97.6 F Pulse Rate 104 H 91 Respiratory Rate 20 Blood Pressure 153/112 H Pulse Oximetry 96 98 Oxygen Delivery Room Air 09/24/25 03:27 09/24/25 04:00 09/24/25 04:00 Temperature 96.5 F L Pulse Rate 96 93 Respiratory Rate 20 Blood Pressure 153/99 H Pulse Oximetry 98 96 Oxygen Delivery Room Air 09/24/25 07:39 09/24/25 07:56 09/24/25 08:00 Temperature 97.4 F L Pulse Rate 100 Respiratory Rate 16 Blood Pressure 156/108 H Pulse Oximetry 99 Oxygen Delivery Room Air Room Air Intake/Output Intake/Output: Intake & Output 09/21/25 09/22/25 09/23/25 09/24/25 23:59 23:59 23:59 23:59 Intake Total 1000 Output Total 900 Balance 100 Meds/Results Medications: Active Medications Generic Name Dose Route Start Last Admin Trade Name Freq PRN Reason Stop Dose Admin Acetaminophen 650 mg 09/23/25 20:22 Acetaminophen 650 Mg Suppository RECTAL Q6H PRN Mild Pain (1-3) or Fever Dextrose 12.5 gm 09/23/25 20:22 Dextrose 50% 25 Gm/50 Ml Syringe IV PUSH PRN PRN Hypoglycemia Protocol Glucagon 1 mg 09/23/25 20:22 Glucagon For Inj 1 Mg Vial IM PRN PRN Hypoglycemia Protocol Glucose 15 gm 09/23/25 20:22 Glucose Oral Gel 15 Gm Of Glucse In 37.5 Gm Tube PO PRN PRN Hypoglycemia Protocol Sodium Chloride 1,000 mls @ 125 mls/hr 09/23/25 18:05 09/24/25 03:47 Normal Saline Iv IV CONT 125 mls/hr .Q8H SCOTTIE Administration Dextrose 1,000 mls @ 100 mls/hr 09/23/25 20:22 Dextrose 5% 1,000 Ml IVPB PRN PRN Hypoglycemia Protocol Metoprolol Tartrate 5 mg 09/23/25 20:17 09/23/25 21:15 Metoprolol Tartrate Inj 5 Mg/5 Ml Vial IV PUSH 5 mg Q5M PRN Administration HR sustained >115 Ondansetron HCl 4 mg 09/23/25 20:22 Ondansetron Inj 4 Mg/2 Ml Vial IV PUSH Q6H PRN Nausea And Vomiting Perflutren Lipid Microsphere 0 ml 09/23/25 20:19 Perflutren Lipid Microspheres 1.5 Ml Vial Diluted To 10 Ml Total Volume IV PUSH 09/26/25 20:20 ONCE PRN adequate visualization Protocol Radiology Results: ITS Impressions Head/Neck CTA 09/23/25 17:17 IMPRESSION: No hemodynamically significant stenosis is noted of the cervical and intracranial arterial vasculature. Labs Labs: Laboratory Results - last 24 hr 09/23/25 09/23/25 09/23/25 15:44 15:47 15:49 WBC 8.2 RBC 4.53 L Hgb 14.6 Hct 43.6 MCV 96.2 MCH 32.2 MCHC 33.5 RDW 13.6 Plt Count 216 MPV 10.5 H Immature Gran % (Auto) 0.2 Neut % (Auto) 83.6 H Lymph % (Auto) 9.4 L [place] % (Auto) 5.8 Eos % (Auto) 0.6 Baso % (Auto) 0.4 Lymph # (Auto) 0.77 L [place] # (Auto) 0.5 Eos # (Auto) 0.1 Baso # (Auto) 0.0 Abs Immat Gran (auto) 0.02 Absolute Neuts (auto) 6.8 H Absolute Nucleated RBC 0.000 Nucleated RBC % 0.0 PT 12.7 INR 0.9 APTT 26.4 Sodium 138 Potassium 4.5 Chloride 106 Carbon Dioxide 25 Anion Gap 7 BUN 27 H Creatinine 1.23 Estim Creat Clear Calc Not Reportable Estimated GFR 59 Glucose 101 POC Capillary Glucose 107 H Hemoglobin A1c Lactic Acid 1.0 Calcium 9.8 Total Bilirubin 0.7 AST 30 ALT 28 Alkaline Phosphatase 78 Troponin I < 0.012 Total Protein 7.7 Albumin 4.6 Triglycerides Cholesterol LDL Cholesterol Direct HDL Direct TSH (Reflex) Free T4 Urine Color Urine Appearance Urine pH Ur Specific [place] Urine Protein Urine Glucose (UA) Urine Ketones Ur Blood (Man) Urine Nitrate Urine Bilirubin Urine Urobilinogen Leukocyte Esterase Rfl 09/23/25 09/23/25 09/24/25 16:13 21:29 00:30 WBC RBC Hgb Hct MCV MCH MCHC RDW Plt Count MPV Immature Gran % (Auto) Neut % (Auto) Lymph % (Auto) [place] % (Auto) Eos % (Auto) Baso % (Auto) Lymph # (Auto) [place] # (Auto) Eos # (Auto) Baso # (Auto) Abs Immat Gran (auto) Absolute Neuts (auto) Absolute Nucleated RBC Nucleated RBC % PT INR APTT Sodium Potassium Chloride Carbon Dioxide Anion Gap BUN Creatinine Estim Creat Clear Calc Estimated GFR Glucose POC Capillary Glucose 88 85 Hemoglobin A1c Lactic Acid Calcium Total Bilirubin AST ALT Alkaline Phosphatase Troponin I Total Protein Albumin Triglycerides Cholesterol LDL Cholesterol Direct HDL Direct TSH (Reflex) Free T4 Urine Color Yellow Urine Appearance Clear Urine pH 5.5 Ur Specific [place] 1.013 Urine Protein Negative Urine Glucose (UA) Negative Urine Ketones Negative Ur Blood (Man) Negative Urine Nitrate Negative Urine Bilirubin Negative Urine Urobilinogen 0.2 Leukocyte Esterase Rfl Negative 09/24/25 04:25 WBC 6.5 RBC 4.29 L Hgb 13.9 L Hct 41.1 L MCV 95.8 MCH 32.4 MCHC 33.8 RDW 13.9 Plt Count 196 MPV 10.3 Immature Gran % (Auto) 0.5 Neut % (Auto) 74.5 H Lymph % (Auto) 15.9 L [place] % (Auto) 7.7 Eos % (Auto) 0.9 Baso % (Auto) 0.5 Lymph # (Auto) 1.03 [place] # (Auto) 0.5 Eos # (Auto) 0.1 Baso # (Auto) 0.0 Abs Immat Gran (auto) 0.03 Absolute Neuts (auto) 4.8 Absolute Nucleated RBC 0.000 Nucleated RBC % 0.0 PT INR APTT Sodium 138 Potassium 3.8 Chloride 109 H Carbon Dioxide 25 Anion Gap 4 BUN 18 Creatinine 0.99 Estim Creat Clear Calc 91 Estimated GFR > 60 Glucose 96 POC Capillary Glucose Hemoglobin A1c 5.4 Lactic Acid Calcium 9.5 Total Bilirubin AST ALT Alkaline Phosphatase Troponin I Total Protein Albumin Triglycerides 50 Cholesterol 196 LDL Cholesterol Direct 118 HDL Direct 54 TSH (Reflex) 7.840 H Free T4 0.77 L Urine Color Urine Appearance Urine pH Ur Specific [place] Urine Protein Urine Glucose (UA) Urine Ketones Ur Blood (Man) Urine Nitrate Urine Bilirubin Urine Urobilinogen Leukocyte Esterase Rfl Quality VTE Prophylaxis VTE prophylaxis: mechanical ordered Hospitalist MIPS Advance Care Plan I have confirmed that the patient's Advanced Care Plan is present, code status is documented, or surrogate decision maker is listed in patient medical record.: Yes Medication Reconciliation I have utilized all available resources to obtain, update and review the patients current medications (includes all prescriptions, OTC, herbals, cannabis, and nutritional supplements).: Yes
--- NOTE | 2025-09-24 09:59 | PC.NURSE ---
Left message for pt's sister, Karen ([phone]), asking her to call IMU. Spoke with pt's brother/roommate, Vinh, earlier this morning. Vinh was unable to provide any past medical history for pt, therefore, unable to consent for MRI.
--- NOTE | 2025-09-24 10:51 | PC.NURSE ---
Pt's sister, Karen Helton ([phone]) returned call and provided limited health history.
--- NOTE | 2025-09-24 12:22 | PC.NURSE ---
Verified with pt that his sister, Karen Helton, is to be primary contact. Phone numbers updated. Karen (cell) [phone], and (home) [phone]. At this time, pt does not want his brother, Vinh ([phone]), to have information regarding his condition.
--- NOTE | 2025-09-24 13:13 | PCSTNOTE ---
Please refer to the Modified Barium Swallow Evaluation in the EMR. The patient is a 65 year old male admitted with CVA diagnosis, and referred for a MBS study following a BSE today with noted coughing with large drinks thin liquid. The patient was positioned in a lateral view and presented the following consistencies: 5cc/tsp thin liquid, thin liquid via cup (No straw due to poor ability to pull from straw), pudding mixed with barium paste, and cracker coated with barium paste. Oral Stage: the patient has some loss of liquid bolus due to reduced labial seal and extra time for bolus formation and oral transit due to reduced lingual ROM, coordination, and strength. Pharyngeal Stage: Swallow initiation was viewed to be timely across consistencies without viewed aspiration or penetration. No residual viewed to remain in the vallecula or pyriform sinus. Recommend: 1. Regular diet / Level 7 2. Thin Liquid / level 0 3. Upright with meals 4. Small bites and drinks 5. No Straw 6. Frequent observation 7. Continued speech services for oral motor ROM, strength, coordination and complete Speech communication evaluation. Thank you for the consult
--- NOTE | 2025-09-24 13:53 | WPDNEURCNPN ---
Assessment and Plan Assessment and plan (1) Hypothyroidism: Qualifiers: Hypothyroidism type: unspecified Qualified Code(s): E03.9 - Hypothyroidism, unspecified Code(s): E03.9 - Hypothyroidism, unspecified Status: Chronic (2) Atrial fibrillation: Qualifiers: Atrial fibrillation type: unspecified chronic Qualified Code(s): I48.20 - Chronic atrial fibrillation, unspecified Code(s): I48.91 - Unspecified atrial fibrillation Status: Chronic (3) Right sided weakness: Code(s): R53.1 - Weakness Status: Acute Plan 1. left hemispheric stroke with right hemiparesis though his speech of low volume but comprehension is good, 2. History of atrial fibrillation and most likely embolic stroke the reason he was taken off the anticoagulation unclear he will be restarted on the anticoagulation on anticoagulation therapy That is Xarelto 20mg daily. 3 history of hypothyroidism. 4. Will need the MRI of the brain as well. Consult date: 09/24/25 HPI: Don Neil is a 65 year old male Admitted to the hospital through the emergency room with the complaints of weakness on the right side of his body when he woke up in the morning. 911 were called to the scene who noted the slurring of the speech and subsequent worsening of the right-sided weakness and route to the emergency room. Patient is not known to be allergic to any medication. On initial evaluation in the emergency room he was weaker on the right side. His vital signs were with blood pressure 169/116, CBC was normal, BMP was normal, troponin less than 0.012, UA normal, CTA of the head and neck documented no extra or intracranial stenosis and also no aneurysm, did subsequently go through the modified barium swallow which revealed no aspiration, on subsequent information it was documented that patient was in bed all day and the family did not realize he had new neurological symptoms until he tried to get out of bed. He gave no history of head trauma, no history of any visual difficulties, but patient does have a history of atrial fibrillation for which he is followed by a benefits manager in [facility]. So as mentioned he does have a history of 1. Hyperlipidemia 2. Hypothyroidism 3. Atrial fibrillation 4. No known allergies. Physical therapy and occupation therapy and speech therapy have been ordered and patient has been seen by the physical therapy. Review of Systems Review of Systems: All systems reviewed & are unremarkable except as noted in HPI and below PMFSH Past Medical History Medical History HLD (hyperlipidemia) Hypothyroidism Atrial fibrillation Family History Family History Other Unknown family medical history Social History Social History Smoking status: Unknown if ever smoked Alcohol intake: unknown Substance use: unknown Meds Home Medications and Allergies Home Medications ?Medication ?Instructions ?Recorded ?Confirmed ?Type levothyroxine 25 mcg tablet 25 mcg PO DAILY@0630 09/24/25 09/24/25 History rivaroxaban 20 mg tablet (Xarelto) 20 mg PO QPM 09/24/25 09/24/25 History Allergies Allergy/AdvReac Type Severity Reaction Status Date / Time No Known Allergies Allergy Verified 09/23/25 18:09 Vital Signs Vital Signs - 24 hr 09/23/25 15:37 09/23/25 17:18 09/23/25 19:10 Temperature 36.8 C 36.9 C Pulse Rate 100 96 87 Respiratory Rate 18 18 20 Blood Pressure 169/116 H 161/122 H 159/107 H Pulse Oximetry 98 99 100 Oxygen Delivery 09/23/25 20:01 09/23/25 20:02 09/23/25 20:15 Temperature Pulse Rate 93 86 87 Respiratory Rate 16 16 17 Blood Pressure 158/106 H Pulse Oximetry 98 97 98 Oxygen Delivery 09/23/25 20:16 09/23/25 20:26 09/23/25 20:30 Temperature Pulse Rate 88 94 100 Respiratory Rate 15 16 16 Blood Pressure 155/110 H 161/116 H Pulse Oximetry 98 99 99 Oxygen Delivery 09/23/25 20:37 09/23/25 20:49 09/23/25 21:01 Temperature Pulse Rate 90 91 91 Respiratory Rate 20 17 20 Blood Pressure 164/107 H 155/109 H Pulse Oximetry 99 97 100 Oxygen Delivery 09/23/25 21:03 09/23/25 21:15 09/23/25 21:17 Temperature Pulse Rate 86 84 82 Respiratory Rate 16 Blood Pressure 158/108 H Pulse Oximetry 97 Oxygen Delivery 09/23/25 21:51 09/23/25 22:31 09/23/25 22:41 Temperature Pulse Rate 95 96 93 Respiratory Rate 20 17 21 H Blood Pressure 163/117 H 160/114 H 152/103 H Pulse Oximetry 97 98 98 Oxygen Delivery 09/23/25 23:16 09/24/25 00:00 09/24/25 00:00 Temperature 36.4 C Pulse Rate 104 H 91 Respiratory Rate 20 Blood Pressure 153/112 H Pulse Oximetry 96 98 Oxygen Delivery Room Air 09/24/25 03:27 09/24/25 04:00 09/24/25 04:00 Temperature 35.8 C L Pulse Rate 96 93 Respiratory Rate 20 Blood Pressure 153/99 H Pulse Oximetry 98 96 Oxygen Delivery Room Air 09/24/25 07:39 09/24/25 07:56 09/24/25 08:00 Temperature 36.3 C L Pulse Rate 100 Respiratory Rate 16 Blood Pressure 156/108 H Pulse Oximetry 99 Oxygen Delivery Room Air Room Air 09/24/25 08:00 09/24/25 10:00 09/24/25 12:00 Temperature Pulse Rate 98 114 H Respiratory Rate Blood Pressure Pulse Oximetry Oxygen Delivery Room Air 09/24/25 12:00 09/24/25 12:20 Temperature 36.6 C Pulse Rate 101 H 109 H Respiratory Rate 18 Blood Pressure 130/110 H Pulse Oximetry 100 Oxygen Delivery Exam Narrative: Exam today reveals him to be awake alert cooperative, in no obvious acute distress, sitting in the chair comfortably and physical therapist has just evaluated him, head normocephalic with no cranial bruits, neck supple with no cervical bruits, no thyromegaly no lymphadenopathy, heart irregular, lungs clear to auscultation with no rhonchi or crepitations, abdomen is soft nontender with normal bowel sounds, neurologically he is awake alert, follows instruction appropriately, his speech of low volume but not dysarthric and not dysphasic at this time, pupils round regular reacting to light equally, feels the vision full to finger confrontation in all 4 quadrants, extraocular movements are full with no nystagmus, facial sensation intact, face is mildly asymmetrical with flattening of the right nasolabial fold, tongue in the oral cavity and no fasciculation, motor examination revealed him to have right hemiparesis with more involvement of the upper extremity as compared to the lower extremity as he was able to kick the right foot and as well as was able to bear his weight on standing. Deep tendon reflexes were slightly asymmetrical more prominent on the right and the right Babinski was upgoing, he had slight difficulties in performing finger to nose to finger mainly because of the weakness. Results Labs 09/24/25 04:25 09/24/25 04:25 Labs: Short CBC 09/23/25 09/24/25 Range/Units 15:47 04:25 WBC 8.2 6.5 (4.5-10.0) K/mm3 Hgb 14.6 13.9 L (14.0-18.0) g/dL Hct 43.6 41.1 L (42.0-52.0) % Plt Count 216 196 (150-375) k/mm3 BMP 09/23/25 09/24/25 15:47 04:25 Sodium 138 138 Potassium 4.5 3.8 Chloride 106 109 H Carbon Dioxide 25 25 BUN 27 H 18 Creatinine 1.23 0.99 Glucose 101 96 Calcium 9.8 9.5 Cardiac Enzymes 09/23/25 Range/Units 15:47 Troponin I < 0.012 (0.000-0.034) ng/mL Liver Function 09/23/25 Range/Units 15:47 Total Bilirubin 0.7 (0.2-1.3) mg/dL AST 30 (17-59) U/L ALT 28 (6-50) U/L Alkaline Phosphatase 78 (38-126) U/L Albumin 4.6 (3.5-5.1) g/dL Urine 09/23/25 Range/Units 16:13 Urine Color Yellow (Yellow) Urine Appearance Clear (Clear) Urine pH 5.5 (5.0-9.0) Ur Specific [place] 1.013 (1.001-1.035) Urine Protein Negative (Negative) mg/dL Urine Glucose (UA) Negative (Negative) mg/dL
[2025-09-24] MEDS: PERFLUTREN LIPID MICROSPHERES 1.5 ML VIAL DILUTED TO 10 ML TOTAL VOLUME IV PUSH (15:25)
--- NOTE | 2025-09-24 16:32 | IVDEFINITY ---
Prior to administration of IV Definity the patient was educated on the risks and benefits of the imaging enhancing agent including potential adverse side effects. The patient verbalized understanding. Allergies were verified. No exclusion criteria were identified and at least one of the following inclusion criteria were met: 1) physician request, 2) patient technically difficult to image (per the [place] [employer] guidelines of two or more segments not discernable within the apical view), or 3) questionable left ventricular function. ?
--- NOTE | 2025-09-24 18:16 | PC.NURSE ---
Discussed MRI results with Dr. Martin, who recommends the hospitalist restarts pt's Xarelto. Pt had stopped Xarelto at some point, but it is unknown as to why. Discussed with Dr. Bowman who states he will inquire more into pt's history as to why Xarelto was stopped. If no contraindication at this time, Dr. Bowman will restart Xarelto.
[2025-09-24] MEDS: diazePAM INJ (*CRX) 10 MG/2 ML SYRINGE 2.5 MG IV PUSH (21:30)
[2025-09-24] MEDS: METOPROLOL TARTRATE INJ 5 MG/5 ML VIAL IV PUSH (23:34)
[2025-09-25] VITALS (13 sets, daily range): BP systolic 149–168; BP diastolic 88–108; PULSE 77–117; RESP 18–24; TEMP 35.9–36.9; O2SAT 92–99
[2025-09-25] MEDS: diazePAM INJ (*CRX) 10 MG/2 ML SYRINGE 2.5 MG IV PUSH (02:35)
[2025-09-25] MEDS: SODIUM CHLORIDE 0.9% IV 1,000 ML 125 ML IV CONT ×3 (05:14→22:02)
[2025-09-25 08:59] LABS: Hematocrit 42.6 % (42.0-52.0); Hemoglobin 14.5 g/dL (14.0-18.0); Mean Corpuscular HGB Conc 34.0 g/dl (32-36); Mean Corpuscular Hemoglobin 32.3 pg (26-34); Mean Corpuscular Volume 94.9 fl (80-100); Platelet Count Result 198 k/mm3 (150-375); Red Blood Count 4.49 M/mm3 (4.6-6.20); White Blood Count 6.0 K/mm3 (4.5-10.0)
--- NOTE | 2025-09-25 09:12 | P.PNIM_ITS ---
Assessment and Plan Assessment and Plan (1) Right sided weakness: Code(s): R53.1 - Weakness Status: Acute Assessment and Plan: New deficits of expressive aphasia, dysarthria, right upper extremity weakness, right lower extremity weakness discovered by family this afternoon on 09/23. LKW at 11 p.m. when he went to sleep night prior on 09/22. Patient reports he woke with symptoms but it appears he was not able to get out of bed to alert someone. Initial inpatient assessment showed the following deficits: severe expressive aphasia, severe dysarthria, severe right upper extremity weakness, right lower extremity weakness, right lateral gaze deficit but able to overcome midline, and partial hemianopia. Patient is not a candidate for TNK given timeframe. Not candidate for thrombectomy as there was no LVO on CTA that was obtained in the ED on 09/23. Case was discussed with Dr. Woods, neurologist, via the ED provider, Dr. Cristina. Neurology okay to accept here and recommended starting Plavix and aspirin, will see in the a.m.. However patient failed his swallow test in the emergency department, case was rediscussed with Neurology and he recommended aspirin suppository only. - admission for observation and telemetry to IMU - CTA head/neck unremarkable on 09/23 - neurology consulted - brain MRI shows multiple infarcts - echo w/Bubble reviewed - neuro checks Q4 -MBS on 09/24 shows no signs of aspiration -speech therapy following - PT/OT/ST to eval and treat - monitor daily labs. check lipid panel, A1C, and TSH - up ad marixa or fall precautions - continue statin -restarted Xarelto - history of AFib, telemetry monitoring (2) Expressive aphasia: Code(s): R47.01 - Aphasia Status: Acute Assessment and Plan: - speech evaluation - hypoglycemia protocol prn and Accu-Cheks Q6h (3) Atrial fibrillation: Qualifiers: Atrial fibrillation type: unspecified chronic Qualified Code(s): I48.20 - Chronic atrial fibrillation, unspecified Code(s): I48.91 - Unspecified atrial fibrillation Status: Chronic Assessment and Plan: Patient has history of chronic atrial fibrillation on diltiazem and metoprolol. No longer on anticoagulation, per patient report it was discontinued approxim ately 1-2 weeks ago. Initial EKG in the ED showed AFib RVR, rate 105. HR now rate controlled in the 90s without intervention. -restarted Xarelto -patient is currently not on any rate control Medicare (4) Hypothyroidism: Qualifiers: Hypothyroidism type: unspecified Qualified Code(s): E03.9 - Hypothyroidism, unspecified Code(s): E03.9 - Hypothyroidism, unspecified Status: Chronic Assessment and Plan: History of hypothyroidism on Synthroid. - check TSH - continue levothyroxine 25 mcg (5) HLD (hyperlipidemia): Qualifiers: Hyperlipidemia type: unspecified Qualified Code(s): E78.5 - Hyperlipidemia, unspecified Code(s): E78.5 - Hyperlipidemia, unspecified Status: Chronic Assessment and Plan: History of hyperlipidemia on simvastatin 40 mg daily. Plan Diet:. Diet GI Prophylaxis: N/a DVT Prophylaxis: SCDs IV fluids: NS 125 mL/hr Lines/Tubes: pIV Code Status: full code Subjective Date/time seen: 09/25/25 09:12 Interval history: I spoke with his sister and has a very long conversation. Patient one of youngest sibling of 10. Out 5/10 were have learning disability which includes him.Patient was once but . Past 5 years patient is declining ,gained of lot and was emotionally declining as well. As per his sister, he needs assistance. For some reason she reports he stopped taking Xarelto for past 2 weeks. She denies any episodes of bleeding or any recent hospitalization. She agrees to start xarelto. Explained the risk vs benefits of restarting xarelto. Reviewed echocardiogram and head and neck CTA which did not show any significant finding. Discussed with neurologist who agrees with the plan. Review of Systems Review of Systems: All systems reviewed & are unremarkable except as noted in HPI and below Exam Const: General: comfortable Other: , male, appearance consistent with stated age. Uncomfortable, however appears more so emotional versus physical. HENMT: Face/Nose/Sinus: Normal nares present Other: Modest secretions, appears to be having difficulty managing. Eyes: General: appearance normal, both eyes and all related structures Sclera: sclerae normal Other: Very mild gaze palsy to the right eye, somewhat limited lateral gaze however is able to cross midline. PERRLA Resp: Effort & Inspection: normal respiratory effort Auscultation: clear to auscultation bilaterally Cardio: Rate: regular rate Rhythm: abnormal rhythm (Consistent with AFib) Other: S1-S2 present without murmur, rub, ectopy GI: Other: Abdomen soft, nondistended, nontender. Normoactive bowel sounds in all quadrants. Skin: General skin exam: no rashes or lesions noted Wounds: no wounds Other: Significant ecchymosis to the left lower extremity starting at calf to the distal ankles. Neuro: Other: Initial NIHSS 1a: Level of Consciousness - 0 1b: LOC Questions - 1, dysarthria 1c:?LOC Tasks -1, able to perform one ta sk 2:?Best Gaze - 1, partial gaze can cross midline but does not appear to full extend right eye laterally when compared to his EOM on the left 3:?Visual?Cantor - 1, effecting right ey e 4: Facial Palsy - 3, unable to smile wel l or grimace brows 5a: Motor Arm?R - 3, some muscle tone bu t cannot lift to gravity 5b: Motor Arm L - 0 6a:?Motor Leg R - 2, can lift approx 1 i n from bed very briefly 6a:?Motor Leg L - 0 7: Limb Ataxia - 0 unable to perform tas ks/did not comprehend well 8: Sensation - 0 9:?Language/Aphasia - 2, severe, minimal speech understandable, does okay with yes/no 10:?Dysarthria? - 2 11: Extinction and Inattention 0 Total: 16 Patient able to nod yes and no to brief questions. Able to answer questions appropriately when given shorter traces or offered answers that he can shake his head yes or no to. Minimal speech able to be produced. Not able to say more than 1-2 words together. Appears to not be tolerating secretions well. Unable to smile or grimace to better assess for facial palsy but when the patient open his mouth there did not appear to be significant weakness on 1 side compared to the other but patient's movements and speech both appear weak. Right upper extremity has some muscle tone but is unable to be lifted from the bed. Right lower extremity can ?very briefly from the bed. Left upper extremity weak but no drift. Left upper extremity does not appear to have any deficits. S ignificant dysarthria and expressive aphasia making history difficult. Orientated to self, place, situation. Extrem: Other: Significant ecchymosis to the left lower extremity and minimal swelling to the left ankle. No tenderness with palpation or range of motion. Psych: Other: Mental status appears intact. Patient distressed however due to her diagnosis. Episodes of crying he/sadness during exam. Objective Data Vital Signs Vital Signs: Vital Signs - 24 hr 09/24/25 10:00 09/24/25 12:00 09/24/25 12:00 Temperature Pulse Rate 114 H 101 H Respiratory Rate Blood Pressure Pulse Oximetry Oxygen Delivery Room Air 09/24/25 12:20 09/24/25 13:33 09/24/25 14:00 Temperature 98 F Pulse Rate 109 H 108 H Respiratory Rate 18 Blood Pressure 130/110 H Pulse Oximetry 100 Oxygen Delivery Room Air 09/24/25 15:56 09/24/25 16:00 09/24/25 16:00 Temperature 98.2 F Pulse Rate 104 H 106 H Respiratory Rate 24 H Blood Pressure 162/82 H Pulse Oximetry 98 Oxygen Delivery Room Air 09/24/25 18:00 09/24/25 20:00 09/24/25 20:00 Temperature 98.2 F Pulse Rate 110 H 106 H Respiratory Rate 24 H Blood Pressure 166/93 H Pulse Oximetry Oxygen Delivery Room Air 09/24/25 20:00 09/24/25 20:00 09/24/25 22:00 Temperature 97.5 F L Pulse Rate 105 H 115 H 110 H Respiratory Rate 24 H Blood Pressure 187/125 H Pulse Oximetry 96 Oxygen Delivery 09/24/25 23:34 09/24/25 23:36 09/25/25 00:00 Temperature 98.5 F Pulse Rate 125 H 108 H Respiratory Rate 24 H Blood Pressure 168/108 H Pulse Oximetry 92 Oxygen Delivery Room Air 09/25/25 00:00 09/25/25 02:00 09/25/25 03:49 Temperature Pulse Rate 104 H 98 Respiratory Rate Blood Pressure Pulse Oximetry Oxygen Delivery Room Air 09/25/25 04:00 09/25/25 04:00 09/25/25 05:55 Temperature 96.9 F L Pulse Rate 106 H 105 H 77 Respiratory Rate 24 H Blood Pressure 150/107 H Pulse Oximetry 99 Oxygen Delivery 09/25/25 07:58 Temperature 97.9 F Pulse Rate 95 Respiratory Rate 18 Blood Pressure 151/101 H Pulse Oximetry Oxygen Delivery Intake/Output Intake/Output: Intake & Output 09/22/25 09/23/25 09/24/25 09/25/25 23:59 23:59 23:59 23:59 Intake Total 3150 966.7 Output Total 1400 1000 Balance 1750 -33.3 Meds/Results Medications: Active Medications Generic Name Dose Route Start Last Admin Trade Name Freq PRN Reason Stop Dose Admin Acetaminophen 650 mg 09/23/25 20:22 Acetaminophen 650 Mg Suppository RECTAL Q6H PRN Mild Pain (1-3) or Fever Dextrose 12.5 gm 09/23/25 20:22 Dextrose 50% 25 Gm/50 Ml Syringe IV PUSH PRN PRN Hypoglycemia Protocol Glucagon 1 mg 09/23/25 20:22 Glucagon For Inj 1 Mg Vial IM PRN PRN Hypoglycemia Protocol Glucose 15 gm 09/23/25 20:22 Glucose Oral Gel 15 Gm Of Glucse In 37.5 Gm Tube PO PRN PRN Hypoglycemia Protocol Sodium Chloride 1,000 mls @ 125 mls/hr 09/23/25 18:05 09/25/25 05:14 Normal Saline Iv IV CONT 125 mls/hr .Q8H SCOTTIE Administration Dextrose 1,000 mls @ 100 mls/hr 09/23/25 20:22 Dextrose 5% 1,000 Ml IVPB PRN PRN Hypoglycemia Protocol Ondansetron HCl 4 mg 09/23/25 20:22 Ondansetron Inj 4 Mg/2 Ml Vial IV PUSH Q6H PRN Nausea And Vomiting Radiology Results: ITS Impressions Head/Neck CTA 09/23/25 17:17 IMPRESSION: No hemodynamically significant stenosis is noted of the cervical and intracranial arterial vasculature. Modified Barium Swallow 09/24/25 13:12 IMPRESSION: No aspiration observed. See speech therapist's note for complete details. Brain MRI 09/24/25 15:46 IMPRESSION: 1. Multiple infarcts consistent with sharp emboli in the left middle cerebral artery vascular distribution the largest involving the posterior insula, posterior limb of the internal capsule and cantrell radiata with several smaller cortical infarcts in the left frontoparietal region. Labs Labs: Laboratory Results - last 24 hr 09/24/25 09/24/25 09/25/25 12:16 16:35 07:29 WBC RBC Hgb Hct MCV MCH MCHC RDW Plt Count MPV POC Capillary Glucose 92 91 92 09/25/25 08:52 WBC 6.0 RBC 4.49 L Hgb 14.5 Hct 42.6 MCV 94.9 MCH 32.3 MCHC 34.0 RDW 13.7 Plt Count 198 MPV 10.0 POC Capillary Glucose Quality VTE Prophylaxis VTE prophylaxis: mechanical ordered Hospitalist MIPS Advance Care Plan I have confirmed that the patient's Advanced Care Plan is present, code status is documented, or surrogate decision maker is listed in patient medical record.: Yes Medication Reconciliation I have utilized all available resources to obtain, update and review the patients current medications (includes all prescriptions, OTC, herbals, cannabis, and nutritional supplements).: Yes
[2025-09-25 09:23] LABS: Alanine Aminotransferase 33 U/L (6-50); Albumin Level 4.0 g/dL (3.5-5.1); Alkaline Phosphatase 66 U/L (38-126); Anion Gap 8 mmol/L (4-12); Aspartate Amino Transferase 40 U/L (17-59); Bilirubin,Total 1.7 mg/dL (0.2-1.3); Blood Urea Nitrogen 14 mg/dL (9-20); Calcium 9.2 mg/dL (8.4-10.2); Carbon Dioxide 22 mmol/L (22-30); Chloride 109 mmol/L (98-107); Estimated CRCL calculation 92 ml/min; Estimated Glomerular Filt Rate > 60; Glucose 102 mg/dL (65-110); Potassium 3.7 mmol/L (3.4-5.0); Sodium 139 mmol/L (137-145); Total Protein 6.9 g/dL (6.3-8.2)
[2025-09-25] MEDS: RIVAROXABAN 20 MG TABLET PO (09:55)
--- NOTE | 2025-09-25 20:33 | PC.NURSE ---
Pt's niece, Fabian Preciado ([phone]), called for pt update. Pt nodded that his niece could have information regarding his care. Fabian updated to pt's current condition.
[2025-09-26] VITALS (11 sets, daily range): BP systolic 117–160; BP diastolic 68–95; PULSE 89–113; RESP 18–20; TEMP 36.4–36.9; O2SAT 94–100
[2025-09-26] MEDS: MELATONIN 5 MG TABLET PO ×2 (00:15→21:08)
[2025-09-26] MEDS: ACETAMINOPHEN 325 MG TABLET 650 MG PO ×2 (01:28→09:31)
[2025-09-26 06:01] LABS: Hematocrit 43.1 % (42.0-52.0); Hemoglobin 14.5 g/dL (14.0-18.0); Mean Corpuscular HGB Conc 33.6 g/dl (32-36); Mean Corpuscular Hemoglobin 32.2 pg (26-34); Mean Corpuscular Volume 95.6 fl (80-100); Platelet Count Result 203 k/mm3 (150-375); Red Blood Count 4.51 M/mm3 (4.6-6.20); White Blood Count 5.6 K/mm3 (4.5-10.0)
[2025-09-26 06:22] LABS: Alanine Aminotransferase 31 U/L (6-50); Albumin Level 4.0 g/dL (3.5-5.1); Alkaline Phosphatase 74 U/L (38-126); Anion Gap 6 mmol/L (4-12); Aspartate Amino Transferase 32 U/L (17-59); Bilirubin,Total 1.4 mg/dL (0.2-1.3); Blood Urea Nitrogen 13 mg/dL (9-20); Calcium 9.3 mg/dL (8.4-10.2); Carbon Dioxide 23 mmol/L (22-30); Chloride 111 mmol/L (98-107); Estimated CRCL calculation 92 ml/min; Estimated Glomerular Filt Rate > 60; Glucose 91 mg/dL (65-110); Potassium 3.6 mmol/L (3.4-5.0); Sodium 140 mmol/L (137-145); Total Protein 7.1 g/dL (6.3-8.2)
[2025-09-26] MEDS: LEVOTHYROXINE SODIUM 25 MCG TABLET PO (06:40)
[2025-09-26] MEDS: SODIUM CHLORIDE 0.9% IV 1,000 ML 125 ML IV CONT ×3 (06:44→23:57)
--- NOTE | 2025-09-26 07:54 | P.PNIM_ITS ---
Assessment and Plan Assessment and Plan (1) Right sided weakness: Code(s): R53.1 - Weakness Status: Acute Assessment and Plan: New deficits of expressive aphasia, dysarthria, right upper extremity weakness, right lower extremity weakness discovered by family this afternoon on 09/23. LKW at 11 p.m. when he went to sleep night prior on 09/22. Patient reports he woke with symptoms but it appears he was not able to get out of bed to alert someone. Initial inpatient assessment showed the following deficits: severe expressive aphasia, severe dysarthria, severe right upper extremity weakness, right lower extremity weakness, right lateral gaze deficit but able to overcome midline, and partial hemianopia. Patient is not a candidate for TNK given timeframe. Not candidate for thrombectomy as there was no LVO on CTA that was obtained in the ED on 09/23. Case was discussed with Dr. Woods, neurologist, via the ED provider, Dr. Cristina. Neurology okay to accept here and recommended starting Plavix and aspirin, will see in the a.m.. However patient failed his swallow test in the emergency department, case was rediscussed with Neurology and he recommended aspirin suppository only. - admission for observation and telemetry to IMU - CTA head/neck unremarkable on 09/23 - neurology consulted - brain MRI shows multiple infarcts - echo w/Bubble reviewed - neuro checks Q4 -MBS on 09/24 shows no signs of aspiration -speech therapy following - PT/OT/ST to eval and treat - monitor daily labs. check lipid panel, A1C, and TSH - up ad marixa or fall precautions - continue statin -restarted Xarelto - history of AFib, telemetry monitoring (2) Expressive aphasia: Code(s): R47.01 - Aphasia Status: Acute Assessment and Plan: - speech evaluation - hypoglycemia protocol prn and Accu-Cheks Q6h (3) Atrial fibrillation: Qualifiers: Atrial fibrillation type: unspecified chronic Qualified Code(s): I48.20 - Chronic atrial fibrillation, unspecified Code(s): I48.91 - Unspecified atrial fibrillation Status: Chronic Assessment and Plan: Patient has history of chronic atrial fibrillation on diltiazem and metoprolol. No longer on anticoagulation, per patient report it was discontinued approxim ately 1-2 weeks ago. Initial EKG in the ED showed AFib RVR, rate 105. HR now rate controlled in the 90s without intervention. -restarted Xarelto -patient is currently not on any rate control Medicare (4) Hypothyroidism: Qualifiers: Hypothyroidism type: unspecified Qualified Code(s): E03.9 - Hypothyroidism, unspecified Code(s): E03.9 - Hypothyroidism, unspecified Status: Chronic Assessment and Plan: History of hypothyroidism on Synthroid. - check TSH - continue levothyroxine 25 mcg (5) HLD (hyperlipidemia): Qualifiers: Hyperlipidemia type: unspecified Qualified Code(s): E78.5 - Hyperlipidemia, unspecified Code(s): E78.5 - Hyperlipidemia, unspecified Status: Chronic Assessment and Plan: History of hyperlipidemia on simvastatin 40 mg daily. (6) Abdominal pain: Code(s): R10.9 - Unspecified abdominal pain Status: Acute Assessment and Plan: Order MRI Renal with contrast Urology consulted Abd/Pelvis CT: 1. Directed noncontrast exam demonstrating no acute surgical abnormality. 2. Moderate to large amount of stool in the rectal vault. 3. Several chronic appearing findings as above including 2.5 cm mildly complex cystic mass in the midpole the right kidney which can be better evaluated with follow-up abdominal MRI. Plan Diet:. Diet GI Prophylaxis: N/a DVT Prophylaxis: SCDs IV fluids: NS 125 mL/hr Lines/Tubes: pIV Code Status: full code Subjective Date/time seen: 09/26/25 07:54 Interval history: 09/25: I spoke with his sister and has a very long conversation. Patient one of youngest sibling of 10. Out 5/10 were have learning disability which includes him.Patient was once but . Past 5 years patient is declining ,gained of lot and was emotionally declining as well. As per his sister, he needs assistance. For some reason she reports he stopped taking Xarelto for past 2 weeks. She denies any episodes of bleeding or any recent hospitalization. She agrees to start xarelto. Explained the risk vs benefits of restarting xarelto. Reviewed echocardiogram and head and neck CTA which did not show any significant finding. Discussed with neurologist who agrees with the plan. 09/26: Patient was complaining about abdominal pain. CT abd/pelvis performed which shows several chronic appearing findings as above including 2.5 cm mildly complex cystic mass in the midpole the right kidney. Recommend MRI. Will consult Urology. Review of Systems Review of Systems: All systems reviewed & are unremarkable except as noted in HPI and below Exam Const: General: comfortable Other: , male, appearance consistent with stated age. Uncomfortable, however appears more so emotional versus physical. HENMT: Face/Nose/Sinus: Normal nares present Other: Modest secretions, appears to be having difficulty managing. Eyes: General: appearance normal, both eyes and all related structures Sclera: sclerae normal Other: Very mild gaze palsy to the right eye, somewhat limited lateral gaze however is able to cross midline. PERRLA Resp: Effort & Inspection: normal respiratory effort Auscultation: clear to auscultation bilaterally Cardio: Rate: regular rate Rhythm: abnormal rhythm (Consistent with AFib) Other: S1-S2 present without murmur, rub, ectopy GI: Other: Abdomen soft, nondistended, nontender. Normoactive bowel sounds in all quadrants. Skin: General skin exam: no rashes or lesions noted Wounds: no wounds Other: Significant ecchymosis to the left lower extremity starting at calf to the distal ankles. Neuro: Other: Initial NIHSS 1a: Level of Consciousness - 0 1b: LOC Questions - 1, dysarthria 1c:?LOC Tasks -1, able to perform one ta sk 2:?Best Gaze - 1, partial gaze can cross midline but does not appear to full extend right eye laterally when compared to his EOM on the left 3:?Visual?Cantor - 1, effecting right ey e 4: Facial Palsy - 3, unable to smile wel l or grimace brows 5a: Motor Arm?R - 3, some muscle tone bu t cannot lift to gravity 5b: Motor Arm L - 0 6a:?Motor Leg R - 2, can lift approx 1 i n from bed very briefly 6a:?Motor Leg L - 0 7: Limb Ataxia - 0 unable to perform tas ks/did not comprehend well 8: Sensation - 0 9:?Language/Aphasia - 2, severe, minimal speech understandable, does okay with yes/no 10:?Dysarthria? - 2 11: Extinction and Inattention 0 Total: 16 Patient able to nod yes and no to brief questions. Able to answer questions appropriately when given shorter traces or offered answers that he can shake his head yes or no to. Minimal speech able to be produced. Not able to say more than 1-2 words together. Appears to not be tolerating secretions well. Unable to smile or grimace to better assess for facial palsy but when the patient open his mouth there did not appear to be significant weakness on 1 side compared to the other but patient's movements and speech both appear weak. Right upper extremity has some muscle tone but is unable to be lifted from the bed. Right lower extremity can ?very briefly from the bed. Left upper extremity weak but no drift. Left upper extremity does not appear to have any deficits. Significant dysarthria and expressive aphasia making history difficult. Orientated to self, place, situation. Extrem: Other: Significant ecchymosis to the left lower extremity and minimal swelling to the left ankle. No tenderness with palpation or range of motion. Psych: Other: Mental status appears intact. Patient distressed however due to her diagnosis. Episodes of crying he/sadness during exam. Objective Data Vital Signs Vital Signs: Vital Signs - 24 hr 09/25/25 07:58 09/25/25 08:00 09/25/25 08:00 Temperature 97.9 F Pulse Rate 95 97 Respiratory Rate 18 Blood Pressure 151/101 H Pulse Oximetry Oxygen Delivery Room Air 09/25/25 10:00 09/25/25 12:00 09/25/25 12:00 Temperature 98.1 F Pulse Rate 105 H 104 H Respiratory Rate 22 H Blood Pressure 151/88 H Pulse Oximetry 99 Oxygen Delivery Room Air 09/25/25 12:00 09/25/25 14:00 09/25/25 16:00 Temperature 97.9 F Pulse Rate 117 H 101 H 97 Respiratory Rate 20 Blood Pressure 154/102 H Pulse Oximetry 98 Oxygen Delivery 09/25/25 16:00 09/25/25 18:00 09/25/25 20:00 Temperature 96.6 F L Pulse Rate 97 107 H 111 H Respiratory Rate 20 Blood Pressure 152/97 H Pulse Oximetry 96 Oxygen Delivery 09/25/25 20:00 09/25/25 20:00 09/25/25 23:08 Temperature 96.8 F L Pulse Rate 113 H 113 H 87 Respiratory Rate 20 Blood Pressure 149/101 H Pulse Oximetry 95 Oxygen Delivery Room Air 09/26/25 00:00 09/26/25 02:00 09/26/25 04:00 Temperature Pulse Rate 101 H 103 H 99 Respiratory Rate Blood Pressure Pulse Oximetry Oxygen Delivery Intake/Output Intake/Output: Intake & Output 09/23/25 09/24/25 09/25/25 09/26/25 23:59 23:59 23:59 23:59 Intake Total 3150 3787.5 1000 Output Total 1400 3950 200 Balance 1750 -162.5 800 Meds/Results Medications: Active Medications Generic Name Dose Route Start Last Admin Trade Name Freq PRN Reason Stop Dose Admin Acetaminophen 650 mg 09/26/25 00:07 09/26/25 01:28 Acetaminophen 325 Mg Tablet PO 650 mg Q4H PRN Administration Mild Pain (1-3) or Fever Dextrose 12.5 gm 09/23/25 20:22 Dextrose 50% 25 Gm/50 Ml Syringe IV PUSH PRN PRN Hypoglycemia Protocol Glucagon 1 mg 09/23/25 20:22 Glucagon For Inj 1 Mg Vial IM PRN PRN Hypoglycemia Protocol Glucose 15 gm 09/23/25 20:22 Glucose Oral Gel 15 Gm Of Glucse In 37.5 Gm Tube PO PRN PRN Hypoglycemia Protocol Sodium Chloride 1,000 mls @ 125 mls/hr 09/23/25 18:05 09/26/25 06:44 Normal Saline Iv IV CONT 125 mls/hr .Q8H SCOTTIE Administration Dextrose 1,000 mls @ 100 mls/hr 09/23/25 20:22 Dextrose 5% 1,000 Ml IVPB PRN PRN Hypoglycemia Protocol Levothyroxine Sodium 25 mcg 09/26/25 06:30 09/26/25 06:40 Levothyroxine Sodium 25 Mcg Tablet PO 25 mcg DAILY@0630 SCOTTIE Administration Melatonin 5 mg 09/26/25 00:15 09/26/25 00:15 Melatonin 5 Mg Tablet PO 5 mg HS SCOTTIE Administration Ondansetron HCl 4 mg 09/23/25 20:22 Ondansetron Inj 4 Mg/2 Ml Vial IV PUSH Q6H PRN Nausea And Vomiting Rivaroxaban 20 mg 09/25/25 10:00 09/25/25 09:55 Rivaroxaban 20 Mg Tablet PO 20 mg QPM SCOTTIE Administration Radiology Results: ITS Impressions Head/Neck CTA 09/23/25 17:17 IMPRESSION: No hemodynamically significant stenosis is noted of the cervical and intracranial arterial vasculature. Modified Barium Swallow 09/24/25 13:12 IMPRESSION: No aspiration observed. See speech therapist's note for complete details. Brain MRI 09/24/25 15:46 IMPRESSION: 1. Multiple infarcts consistent with sharp emboli in the left middle cerebral artery vascular distribution the largest involving the posterior insula, posterior limb of the internal capsule and cantrell radiata with several smaller cortical infarcts in the left frontoparietal region. Labs Labs: Laboratory Results - last 24 hr 09/25/25 09/25/25 09/25/25 07:29 08:52 11:28 WBC 6.0 RBC 4.49 L Hgb 14.5 Hct 42.6 MCV 94.9 MCH 32.3 MCHC 34.0 RDW 13.7 Plt Count 198 MPV 10.0 Sodium 139 Potassium 3.7 Chloride 109 H Carbon Dioxide 22 Anion Gap 8 BUN 14 Creatinine 0.98 Estim Creat Clear Calc 92 Estimated GFR > 60 Glucose 102 POC Capillary Glucose 92 92 Calcium 9.2 Total Bilirubin 1.7 H AST 40 ALT 33 Alkaline Phosphatase 66 Total Protein 6.9 Albumin 4.0 09/25/25 09/25/25 09/26/25 16:03 20:08 05:46 WBC 5.6 RBC 4.51 L Hgb 14.5 Hct 43.1 MCV 95.6 MCH 32.2 MCHC 33.6 RDW 13.7 Plt Count 203 MPV 10.0 Sodium 140 Potassium 3.6 Chloride 111 H Carbon Dioxide 23 Anion Gap 6 BUN 13 Creatinine 0.99 Estim Creat Clear Calc 92 Estimated GFR > 60 Glucose 91 POC Capillary Glucose 98 101 Calcium 9.3 Total Bilirubin 1.4 H AST 32 ALT 31 Alkaline Phosphatase 74 Total Protein 7.1 Albumin 4.0 Quality VTE Prophylaxis VTE prophylaxis: mechanical ordered Hospitalist [facility] Advance Care Plan I have confirmed that the patient's Advanced Care Plan is present, code status is documented, or surrogate decision maker is listed in patient medical record.: Yes Medication Reconciliation I have utilized all available resources to obtain, update and review the patients current medications (includes all prescriptions, OTC, herbals, cannabis, and nutritional supplements).: Yes
[2025-09-26] MEDS: ONDANSETRON INJ 4 MG/2 ML VIAL IV PUSH (08:07)
--- NOTE | 2025-09-26 13:10 | PCOTNOTE ---
Attempted to see Patient this afternoon. Patient declined, not feeling well.
[2025-09-26] MEDS: RIVAROXABAN 20 MG TABLET PO (18:07)
[2025-09-27] VITALS (9 sets, daily range): BP systolic 115–165; BP diastolic 90–98; PULSE 90–113; RESP 12–18; TEMP 36.2–36.5; O2SAT 96–97
[2025-09-27] MEDS: ACETAMINOPHEN 325 MG TABLET 650 MG PO ×2 (03:26→11:29)
[2025-09-27] MEDS: LEVOTHYROXINE SODIUM 25 MCG TABLET PO (06:14)
--- NOTE | 2025-09-27 07:35 | P.PNIM_ITS ---
Assessment and Plan Assessment and Plan (1) Right sided weakness: Code(s): R53.1 - Weakness Status: Acute Assessment and Plan: New deficits of expressive aphasia, dysarthria, right upper extremity weakness, right lower extremity weakness discovered by family this afternoon on 09/23. LKW at 11 p.m. when he went to sleep night prior on 09/22. Patient reports he woke with symptoms but it appears he was not able to get out of bed to alert someone. Initial inpatient assessment showed the following deficits: severe expressive aphasia, severe dysarthria, severe right upper extremity weakness, right lower extremity weakness, right lateral gaze deficit but able to overcome midline, and partial hemianopia. Patient is not a candidate for TNK given timeframe. Not candidate for thrombectomy as there was no LVO on CTA that was obtained in the ED on 09/23. Case was discussed with Dr. Woods, neurologist, via the ED provider, Dr. Cristina. Neurology okay to accept here and recommended starting Plavix and aspirin, will see in the a.m.. However patient failed his swallow test in the emergency department, case was rediscussed with Neurology and he recommended aspirin suppository only. - admission for observation and telemetry to IMU - CTA head/neck unremarkable on 09/23 - neurology consulted - brain MRI shows multiple infarcts - echo w/Bubble reviewed - neuro checks Q4 -MBS on 09/24 shows no signs of aspiration -speech therapy following - PT/OT/ST to eval and treat -reviewed lipid panel, -A1C 5.1 -TSH 7.8(patient is currently on levothyroxine 25 mcg and I believe patient is not taking the medication properly/regularly, so no dose adjustment needed. Should repeat TSH in 6 weeks) - up ad marixa or fall precautions - continue statin -restarted Xarelto - history of AFib, telemetry monitoring (2) Expressive aphasia: Code(s): R47.01 - Aphasia Status: Acute Assessment and Plan: - speech evaluation - hypoglycemia protocol prn and Accu-Cheks Q6h (3) Atrial fibrillation: Qualifiers: Atrial fibrillation type: unspecified chronic Qualified Code(s): I48.20 - Chronic atrial fibrillation, unspecified Code(s): I48.91 - Unspecified atrial fibrillation Status: Chronic Assessment and Plan: Patient has history of chronic atrial fibrillation on diltiazem and metoprolol. No longer on anticoagulation, per patient report it was discontinued approximately 1-2 weeks ago. Initial EKG in the ED showed AFib RVR, rate 105. HR now rate controlled in the 90s without intervention. -restarted Xarelto -patient is currently not on any rate control Medicare (4) Hypothyroidism: Qualifiers: Hypothyroidism type: unspecified Qualified Code(s): E03.9 - Hypothyroidism, unspecified Code(s): E03.9 - Hypothyroidism, unspecified Status: Chronic Assessment and Plan: History of hypothyroidism on Synthroid. - check TSH - continue levothyroxine 25 mcg (5) HLD (hyperlipidemia): Qualifiers: Hyperlipidemia type: unspecified Qualified Code(s): E78.5 - Hyperlipidemia, unspecified Code(s): E78.5 - Hyperlipidemia, unspecified Status: Chronic Assessment and Plan: History of hyperlipidemia on simvastatin 40 mg daily. (6) Abdominal pain: Code(s): R10.9 - Unspecified abdominal pain Status: Acute Assessment and Plan: Order MRI Renal with contrast Urology consulted Abd/Pelvis CT: 1. Directed noncontrast exam demonstrating no acute surgical abnormality. 2. Moderate to large amount of stool in the rectal vault. 3. Several chronic appearing findings as above including 2.5 cm mildly complex cystic mass in the midpole the right kidney which can be better evaluated with follow-up abdominal MRI. Plan GI Prophylaxis: N/a DVT Prophylaxis: Xarelto IV fluids: NS 125 mL/hr Lines/Tubes: pIV Code Status: full code Subjective Date/time seen: 09/27/25 07:35 Interval history: 09/25: I spoke with his sister and has a very long conversation. Patient one of youngest sibling of 10. Out 5/10 were have learning disability which includes him.Patient was once but . Past 5 years patient is declining ,gained of lot and was emotionally declining as well. As per his sister, he needs assistance. For some reason she reports he stopped taking Xarelto for past 2 weeks. She denies any episodes of bleeding or any recent hospitalization. She agrees to start xarelto. Explained the risk vs benefits of restarting xarelto. Reviewed echocardiogram and head and neck CTA which did not show any significant finding. Discussed with neurologist who agrees with the plan. 09/26: Patient was complaining about abdominal pain. CT abd/pelvis performed which shows several chronic appearing findings as above including 2.5 cm mildly complex cystic mass in the midpole the right kidney. Recommend MRI. Will consult Urology. 09/27: Discussed with neurology recommend only Xarelto. No need of aspirin and Plavix. Started atorvastatin 80 mg p.o. q.d.. Pending urology consult regarding renal cyst. Patient needs rehab. Had a long conversation with sister today. Exam Const: General: comfortable Other: , male, appearance consistent with stated age. Uncomfortable, however appears more so emotional versus physical. HENMT: Face/Nose/Sinus: Normal nares present Other: Modest secretions, appears to be having difficulty managing. Eyes: General: appearance normal, both eyes and all related structures Sclera: sclerae normal Other: Very mild gaze palsy to the right eye, somewhat limited lateral gaze however is able to cross midline. PERRLA Resp: Effort & Inspection: normal respiratory effort Auscultation: clear to auscultation bilaterally Cardio: Rate: regular rate Rhythm: abnormal rhythm (Consistent with AFib) Other: S1-S2 present without murmur, rub, ectopy GI: Other: Abdomen soft, nondistended, nontender. Normoactive bowel sounds in all quadrants. Skin: General skin exam: no rashes or lesions noted Wounds: no wounds Other: Significant ecchymosis to the left lower extremity starting at calf to the distal ankles. Neuro: Other: Initial NIHSS 1a: Level of Consciousness - 0 1b: LOC Questions - 1, dysarthria 1c:?LOC Tasks -1, able to perform one ta sk 2:?Best Gaze - 1, partial gaze can cross midline but does not appear to full extend right eye laterally when compared to his EOM on the left 3:?Visual?Cantor - 1, effecting right ey e 4: Facial Palsy - 3, unable to smile wel l or grimace brows 5a: Motor Arm?R - 3, some muscle tone bu t cannot lift to gravity 5b: Motor Arm L - 0 6a:?Motor Leg R - 2, can lift approx 1 i n from bed very briefly 6a:?Motor Leg L - 0 7: Limb Ataxia - 0 unable to perform tas ks/did not comprehend well 8: Sensation - 0 9:?Language/Aphasia - 2, severe, minimal speech understandable, does okay with yes/no 10:?Dysarthria? - 2 11: Extinction and Inattention 0 Total: 16 Patient able to nod yes and no to brief questions. Able to answer questions appropriately when given shorter traces or offered answers that he can shake his head yes or no to. Minimal speech able to be produced. Not able to say more than 1-2 words together. Appears to not be tolerating secretions well. Unable to smile or grimace to better assess for facial palsy but when the patient open his mouth there did not appear to be significant weakness on 1 side compared to the other but patient's movements and speech both appear weak. Right upper extremity has some muscle tone but is unable to be lifted from the bed. Right lower extremity can ?very briefly from the bed. Left upper extremity weak but no drift. Left upper extremity does not appear to have any deficits. Sign ificant dysarthria and expressive aphasia making history difficult. Orientated to self, place, situation. Extrem: Other: Significant ecchymosis to the left lower extremity and minimal swelling to the left ankle. No tenderness with palpation or range of motion. Psych: Other: Mental status appears intact. Patient distressed however due to her diagnosis. Episodes of crying he/sadness during exam. Objective Data Vital Signs Vital Signs: Vital Signs - 24 hr 09/26/25 08:00 09/26/25 08:00 09/26/25 08:20 Temperature 98.4 F Pulse Rate 113 H 89 Respiratory Rate 20 Blood Pressure 117/68 Pulse Oximetry 94 Oxygen Delivery Room Air 09/26/25 08:37 09/26/25 12:00 09/26/25 15:56 Temperature 98.0 F Pulse Rate 111 H 104 H Respiratory Rate 18 Blood Pressure 149/95 H Pulse Oximetry 94 98 Oxygen Delivery Room Air 09/26/25 16:00 09/26/25 20:00 09/26/25 20:10 Temperature 97.6 F Pulse Rate 101 H 100 105 H Respiratory Rate 20 Blood Pressure 160/94 H Pulse Oximetry 100 Oxygen Delivery 09/27/25 00:00 09/27/25 04:00 09/27/25 05:40 Temperature 97.4 F L Pulse Rate 93 92 105 H Respiratory Rate 18 Blood Pressure Pulse Oximetry 96 Oxygen Delivery 09/27/25 06:17 Temperature Pulse Rate Respiratory Rate Blood Pressure 115/90 Pulse Oximetry Oxygen Delivery Intake/Output Intake/Output: Intake & Output 09/24/25 09/25/25 09/26/25 09/27/25 23:59 23:59 23:59 23:59 Intake Total 3150 3787.5 3660 250 Output Total 1400 3950 800 1900 Balance 1750 -162.5 2860 -1650 Meds/Results Medications: Active Medications Generic Name Dose Route Start Last Admin Trade Name Freq PRN Reason Stop Dose Admin Acetaminophen 650 mg 09/26/25 00:07 09/27/25 03:26 Acetaminophen 325 Mg Tablet PO 650 mg Q4H PRN Administration Mild Pain (1-3) or Fever Dextrose 12.5 gm 09/23/25 20:22 Dextrose 50% 25 Gm/50 Ml Syringe IV PUSH PRN PRN Hypoglycemia Protocol Glucagon 1 mg 09/23/25 20:22 Glucagon For Inj 1 Mg Vial IM PRN PRN Hypoglycemia Protocol Glucose 15 gm 09/23/25 20:22 Glucose Oral Gel 15 Gm Of Glucse In 37.5 Gm Tube PO PRN PRN Hypoglycemia Protocol Sodium Chloride 1,000 mls @ 125 mls/hr 09/23/25 18:05 09/26/25 23:57 Normal Saline Iv IV CONT 125 mls/hr .Q8H SCOTTIE Administration Dextrose 1,000 mls @ 100 mls/hr 09/23/25 20:22 Dextrose 5% 1,000 Ml IVPB PRN PRN Hypoglycemia Protocol Levothyroxine Sodium 25 mcg 09/26/25 06:30 09/27/25 06:14 Levothyroxine Sodium 25 Mcg Tablet PO 25 mcg DAILY@0630 SCOTTIE Administration Melatonin 5 mg 09/26/25 00:15 09/26/25 21:08 Melatonin 5 Mg Tablet PO 5 mg HS SCOTTIE Administration Ondansetron HCl 4 mg 09/23/25 20:22 09/26/25 08:07 Ondansetron Inj 4 Mg/2 Ml Vial IV PUSH 4 mg Q6H PRN Administration Nausea And Vomiting Polyethylene Glycol 17 gm 09/27/25 09:00 Polyethylene Glycol 3350 17 Gm Powd.Pack PO QAM SCOTTIE Polyethylene Glycol 17 gm 09/27/25 09:00 Polyethylene Glycol 3350 17 Gm Powd.Pack PO BID SCOTTIE Rivaroxaban 20 mg 09/25/25 10:00 09/26/25 18:07 Rivaroxaban 20 Mg Tablet PO 20 mg QPM SCOTTIE Administration Simethicone 80 mg 09/26/25 10:38 Simethicone 80 Mg Tab.Chew PO QID PRN Abdominal Cramping Radiology Results: ITS Impressions Head/Neck CTA 09/23/25 17:17 IMPRESSION: No hemodynamically significant stenosis is noted of the cervical and intracranial arterial vasculature. Modified Barium Swallow 09/24/25 13:12 IMPRESSION: No aspiration observed. See speech therapist's note for complete details. Brain MRI 09/24/25 15:46 IMPRESSION: 1. Multiple infarcts consistent with sharp emboli in the left middle cerebral artery vascular distribution the largest involving the posterior insula, posterior limb of the internal capsule and cantrell radiata with several smaller cortical infarcts in the left frontoparietal region. Abdomen/Pelvis CT 09/26/25 10:59 IMPRESSION: 1. Directed noncontrast exam demonstrating no acute surgical abnormality. 2. Moderate to large amount of stool in the rectal vault. 3. Several chronic appearing findings as above including 2.5 cm mildly complex cystic mass in the midpole the right kidney which can be better evaluated with follow-up abdominal MRI. Labs Labs: Laboratory Results - last 24 hr 09/26/25 09/26/25 09/26/25 08:25 11:42 15:31 POC Capillary Glucose 143 H 84 92 09/26/25 20:13 POC Capillary Glucose 100 Quality VTE Prophylaxis VTE prophylaxis: mechanical ordered Hospitalist [facility] Advance Care Plan I have confirmed that the patient's Advanced Care Plan is present, code status is documented, or surrogate decision maker is listed in patient medical record.: Yes Medication Reconciliation I have utilized all available resources to obtain, update and review the patients current medications (includes all prescriptions, OTC, herbals, cannabis, and nutritional supplements).: Yes
--- NOTE | 2025-09-27 10:12 | PCPTNOTE ---
Attempted to see patient for PT, however patient was out of the room for testing.
--- NOTE | 2025-09-27 10:58 | PC.NURSE ---
Morning medications are late due to timing of MRI. RN will give them when they return to the floor.
[2025-09-27] MEDS: ATORVASTATIN 40 MG TABLET 80 MG PO (11:29)
[2025-09-27] MEDS: MORPHINE SULFATE (*CRX) 4 MG/ML INJ 1 MG IV PUSH (16:54)
[2025-09-27] MEDS: RIVAROXABAN 20 MG TABLET PO (17:01)
[2025-09-27] MEDS: SODIUM CHLORIDE 0.9% IV 1,000 ML 125 ML IV CONT (17:03)
[2025-09-27] MEDS: HYDROmorphone HCL INJ (*CRX) 1 MG/ML SYR 0.5 MG IV PUSH ×2 (17:23→19:51)
--- NOTE | 2025-09-27 19:15 | PM.CCN ---
Critical Care Event Note Summary Code activated: No Narrative: Pulmonary nursing for patient grimacing appearing acutely uncomfortable with abdominal pain Nursing stating that Dilaudid did not help Will repeat CT scan Dilaudid Q 3 and Toradol No acute findings on CT scan however there is large stool burden Tried to avoid narcotic medications Lactulose enema This case had a high probability of a clinically significant, sudden, or life threatening deterioration of this patient's condition which required my full and direct attention, intervention and personal management. Critical care time: 30 - 74 mins
[2025-09-27] MEDS: LACTULOSE ENEMA 200 GM/1,000 ML ENEMA RECTAL (22:25)
[2025-09-28] VITALS (9 sets, daily range): BP systolic 154–167; BP diastolic 92–114; PULSE 86–109; RESP 18; TEMP 36.2–36.5; O2SAT 94–97
[2025-09-28] MEDS: SODIUM CHLORIDE 0.9% IV 1,000 ML 125 ML IV CONT ×2 (01:26→09:29)
[2025-09-28] MEDS: LEVOTHYROXINE SODIUM 25 MCG TABLET PO (05:57)
[2025-09-28] MEDS: ATORVASTATIN 40 MG TABLET 80 MG PO (09:28)
[2025-09-28] MEDS: ACETAMINOPHEN 325 MG TABLET 650 MG PO (09:28)
[2025-09-28] MEDS: SIMETHICONE 80 MG TAB.CHEW PO ×2 (09:29→19:59)
[2025-09-28] MEDS: KETOROLAC 15 MG/ML VIAL (*BKC) IV PUSH ×2 (10:08→18:42)
[2025-09-28 12:09] LABS: Hematocrit 45.8 % (42.0-52.0); Hemoglobin 15.1 g/dL (14.0-18.0); Immature Granulocyte Percent A 0.3 % (0-0.5); Immature Platelet Fraction Pct 2.2 % (0.9-11.2); Lymphocytes Absolute Auto 0.90 K/mm3 (0.9-3.2); Mean Corpuscular HGB Conc 33.0 g/dl (32-36); Mean Corpuscular Hemoglobin 32.5 pg (26-34); Mean Corpuscular Volume 98.7 fl (80-100); Nucleated Red Blood Cells Absolute Auto 0.000 K/mm3 (0.0-0.012); Nucleated Red Blood Cells Perc 0.0 % (0.0-0.2); Platelet Count Result 180 k/mm3 (150-375); Red Blood Count 4.64 M/mm3 (4.6-6.20); White Blood Count 6.1 K/mm3 (4.5-10.0)
[2025-09-28 12:36] LABS: Alanine Aminotransferase 25 U/L (6-50); Albumin Level 4.1 g/dL (3.5-5.1); Alkaline Phosphatase 68 U/L (38-126); Anion Gap 8 mmol/L (4-12); Aspartate Amino Transferase 34 U/L (17-59); Bilirubin,Total 1.2 mg/dL (0.2-1.3); Blood Urea Nitrogen 14 mg/dL (9-20); Calcium 9.4 mg/dL (8.4-10.2); Carbon Dioxide 24 mmol/L (22-30); Chloride 107 mmol/L (98-107); Estimated CRCL calculation 91 ml/min; Estimated Glomerular Filt Rate > 60; Glucose 88 mg/dL (65-110); Lipase 41 U/L (23-300); Magnesium 1.9 mg/dL (1.6-2.3); Potassium 4.3 mmol/L (3.4-5.0); Sodium 139 mmol/L (137-145); Total Protein 7.3 g/dL (6.3-8.2)
--- NOTE | 2025-09-28 13:49 | PCSTNOTE ---
[address] ST attempted speech therapy session #3 of 3-5; pt refused due to fatigue.
--- NOTE | 2025-09-28 14:42 | P.PNIM_ITS ---
Assessment and Plan Assessment and Plan (1) Right sided weakness: Code(s): R53.1 - Weakness Status: Acute Assessment and Plan: New deficits of expressive aphasia, dysarthria, right upper extremity weakness, right lower extremity weakness discovered by family this afternoon on 09/23. LKW at 11 p.m. when he went to sleep night prior on 09/22. Patient reports he woke with symptoms but it appears he was not able to get out of bed to alert someone. Initial inpatient assessment showed the following deficits: severe expressive aphasia, severe dysarthria, severe right upper extremity weakness, right lower extremity weakness, right lateral gaze deficit but able to overcome midline, and partial hemianopia. Patient is not a candidate for TNK given timeframe. Not candidate for thrombectomy as there was no LVO on CTA that was obtained in the ED on 09/23. Case was discussed with Dr. Woods, neurologist, via the ED provider, Dr. Cristina. Neurology okay to accept here and recommended starting Plavix and aspirin, will see in the a.m.. However patient failed his swallow test in the emergency department, case was rediscussed with Neurology and he recommended aspirin suppository only. 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 EF 65-70% - neuro checks Q4 -MBS on 09/24 shows no signs of aspiration -speech therapy following and started on a diet - PT/OT/ST to eval and treat -reviewed lipid panel, LDL 118 -A1C 5.4 -TSH 7.8(patient is currently on levothyroxine 25 mcg and I believe patient is not taking the medication properly/regularly, so no dose adjustment needed. Should repeat TSH in 6 weeks) - up ad marixa or fall precautions - continue statin -restarted Xarelto - history of AFib, telemetry monitoring (2) Expressive aphasia: Code(s): R47.01 - Aphasia Status: Acute Assessment and Plan: - speech evaluation - hypoglycemia protocol prn and Accu-Cheks Q6h (3) Atrial fibrillation: Qualifiers: Atrial fibrillation type: unspecified chronic Qualified Code(s): I48.20 - Chronic atrial fibrillation, unspecified Code(s): I48.91 - Unspecified atrial fibrillation Status: Chronic Assessment and Plan: Patient has history of chronic atrial fibrillation on diltiazem and metoprolol. No longer on anticoagulation, per patient report it was discontinued approximately 1-2 weeks ago. Initial EKG in the ED showed AFib RVR, rate 105. HR now rate controlled in the 90s without intervention. -restarted Xarelto -patient is currently not on any rate control medication (4) Hypothyroidism: Qualifiers: Hypothyroidism type: unspecified Qualified Code(s): E03.9 - Hypothyroidism, unspecified Code(s): E03.9 - Hypothyroidism, unspecified Status: Chronic Assessment and Plan: History of hypothyroidism on Synthroid. - check TSH - continue levothyroxine 25 mcg (5) HLD (hyperlipidemia): Qualifiers: Hyperlipidemia type: unspecified Qualified Code(s): E78.5 - Hyperlipidemia, unspecified Code(s): E78.5 - Hyperlipidemia, unspecified Status: Chronic Assessment and Plan: History of hyperlipidemia on simvastatin 40 mg daily. (6) Abdominal pain: Code(s): R10.9 - Unspecified abdominal pain Status: Acute Assessment and Plan: Abd/Pelvis CT: 1. Directed noncontrast exam demonstrating no acute surgical abnormality. 2. Moderate to large amount of stool in the rectal vault. 3. Several chronic appearing findings as above including 2.5 cm mildly complex cystic mass in the midpole the right kidney which can be better evaluated with follow-up abdominal MRI. MRI kidney with mildly complex Bosniak 2 right renal cyst. No follow-up surveillance needed. Other benign appearing renal cyst. Urology consulted Patient on another rapid response on 09/27/2025 with abdominal pain repeat CT with no acute abnormality noted Plan DVT Prophylaxis: Xarelto Code Status: full code Subjective Date/time seen: 09/28/25 14:42 Interval history: 09/25: I spoke with his sister and has a very long conversation. Patient one of youngest sibling of 10. Out 5/10 were have learning disability which includes him.Patient was once but . Past 5 years patient is declining ,gained of lot and was emotionally declining as well. As per his sister, he needs assistance. For some reason she reports he stopped taking Xarelto for past 2 weeks. She denies any episodes of bleeding or any recent hospitalization. She agrees to start xarelto. Explained the risk vs benefits of restarting xarelto. Reviewed echocardiogram and head and neck CTA which did not show any significant finding. Discussed with neurologist who agrees with the plan. 09/26: Patient was complaining about abdominal pain. CT abd/pelvis performed which shows several chronic appearing findings as above including 2.5 cm mildly complex cystic mass in the midpole the right kidney. Recommend MRI. Will consult Urology. 09/27: Discussed with neurology recommend only Xarelto. No need of aspirin and Plavix. Started atorvastatin 80 mg p.o. q.d.. Pending urology consult regarding renal cyst. Patient needs rehab. Had a long conversation with sister today. 09/28: Overnight had some abdominal pain. Had a bowel movement per nursing staff and felt better. CT was negative. Still has some abdominal discomfort however has expressive aphasia and difficult to understand Review of Systems Review of Systems: All systems reviewed & are unremarkable except as noted in HPI and below Exam Const: General: comfortable Other: , male, appearance consistent with stated age. Not in acute distress HENMT: Face/Nose/Sinus: Normal nares present Other: Dysarthria Eyes: General: appearance normal, both eyes and all related structures Sclera: sclerae normal Other: Very mild gaze palsy to the right eye, somewhat limited lateral gaze however is able to cross midline. PERRLA Resp: Effort & Inspection: normal respiratory effort Auscultation: clear to auscultation bilaterally Cardio: Rate: regular rate Rhythm: abnormal rhythm (Consistent with AFib) Other: S1-S2 present without murmur, rub, ectopy GI: Other: Abdomen soft, nondistended, nontender. Normoactive bowel sounds in all quadrants. Skin: General skin exam: no rashes or lesions noted Wounds: no wounds Other: Significant ecchymosis to the left lower extremity starting at calf to the distal ankles. Neuro: Other: Alert and conversant next receive aphasia right sided weakness Extrem: Other: Significant ecchymosis to the left lower extremity and minimal swelling to the left ankle. No tenderness with palpation or range of motion. Psych: Other: Mental status appears intact. Objective Data Vital Signs Vital Signs: Vital Signs - 24 hr 09/27/25 14:52 09/27/25 16:00 09/27/25 19:34 Temperature 97.2 F L 97.7 F Pulse Rate 113 H 109 H 90 Respiratory Rate 12 Blood Pressure 165/93 H 146/98 H Pulse Oximetry 97 96 Oxygen Delivery 09/27/25 20:00 09/28/25 00:00 09/28/25 03:28 Temperature 97.7 F Pulse Rate 98 91 88 Respiratory Rate 18 Blood Pressure 154/102 H Pulse Oximetry 97 Oxygen Delivery 09/28/25 04:00 09/28/25 08:00 09/28/25 08:00 Temperature Pulse Rate 91 86 Respiratory Rate Blood Pressure Pulse Oximetry Oxygen Delivery Room Air 09/28/25 12:00 Temperature Pulse Rate 95 Respiratory Rate Blood Pressure Pulse Oximetry Oxygen Delivery Intake/Output Intake/Output: Intake & Output 09/25/25 09/26/25 09/27/25 09/28/25 23:59 23:59 23:59 23:59 Intake Total 3787.5 3660 1580 2145 Output Total 3950 800 2150 1600 Balance -162.5 2860 -570 545 Meds/Results Medications: Active Medications Generic Name Dose Route Start Last Admin Trade Name Freq PRN Reason Stop Dose Admin Acetaminophen 650 mg 09/26/25 00:07 09/28/25 09:28 Acetaminophen 325 Mg Tablet PO 650 mg Q4H PRN Administration Mild Pain (1-3) or Fever Atorvastatin Calcium 80 mg 09/27/25 09:00 09/28/25 09:28 Atorvastatin 40 Mg Tablet PO 80 mg DAILY SCOTTIE Administration Dextrose 12.5 gm 09/23/25 20:22 Dextrose 50% 25 Gm/50 Ml Syringe IV PUSH PRN PRN Hypoglycemia Protocol Glucagon 1 mg 09/23/25 20:22 Glucagon For Inj 1 Mg Vial IM PRN PRN Hypoglycemia Protocol Glucose 15 gm 09/23/25 20:22 Glucose Oral Gel 15 Gm Of Glucse In 37.5 Gm Tube PO PRN PRN Hypoglycemia Protocol Hydromorphone HCl 0.5 mg 09/27/25 19:16 09/27/25 19:51 Hydromorphone Hcl Inj (*Crx) 1 Mg/Ml Syr IV PUSH 0.5 mg Q3H PRN Administration Pain Rated 7-10 Sodium Chloride 1,000 mls @ 125 mls/hr 09/23/25 18:05 09/28/25 09:29 Normal Saline Iv IV CONT 125 mls/hr .Q8H SCOTTIE Administration Dextrose 1,000 mls @ 100 mls/hr 09/23/25 20:22 Dextrose 5% 1,000 Ml IVPB PRN PRN Hypoglycemia Protocol Ketorolac Tromethamine 15 mg 09/27/25 19:17 09/28/25 10:08 Ketorolac 15 Mg/Ml Vial (*Bkc) IV PUSH 15 mg Q6H PRN Administration Pain Rated 4-6 Levothyroxine Sodium 25 mcg 09/26/25 06:30 09/28/25 05:57 Levothyroxine Sodium 25 Mcg Tablet PO 25 mcg DAILY@0630 SCOTTIE Administration Melatonin 5 mg 09/26/25 00:15 09/27/25 20:40 Melatonin 5 Mg Tablet PO Not Given HS SCOTTIE Morphine Sulfate 1 mg 09/27/25 16:47 09/27/25 16:54 Morphine Sulfate (*Crx) 4 Mg/Ml Inj IV PUSH 1 mg Q4H PRN Administration Pain Rated 7-10 Ondansetron HCl 4 mg 09/23/25 20:22 09/26/25 08:07 Ondansetron Inj 4 Mg/2 Ml Vial IV PUSH 4 mg Q6H PRN Administration Nausea And Vomiting Polyethylene Glycol 17 gm 09/27/25 09:00 09/28/25 09:28 Polyethylene Glycol 3350 17 Gm Powd.Pack PO 17 gm QAM SCOTTIE Administration Polyethylene Glycol 17 gm 09/27/25 09:00 09/28/25 09:30 Polyethylene Glycol 3350 17 Gm Powd.Pack PO Not Given BID SCOTTIE Rivaroxaban 20 mg 09/25/25 10:00 09/27/25 17:01 Rivaroxaban 20 Mg Tablet PO 20 mg QPM SCOTTIE Administration Simethicone 80 mg 09/26/25 10:38 09/28/25 09:29 Simethicone 80 Mg Tab.Chew PO 80 mg QID PRN Administration Abdominal Cramping Radiology Results: ITS Impressions Head/Neck CTA 09/23/25 17:17 IMPRESSION: No hemodynamically significant stenosis is noted of the cervical and intracranial arterial vasculature. Modified Barium Swallow 09/24/25 13:12 IMPRESSION: No aspiration observed. See speech therapist's note for complete details. Brain MRI 09/24/25 15:46 IMPRESSION: 1. Multiple infarcts consistent with sharp emboli in the left middle cerebral artery vascular distribution the largest involving the posterior insula, posterior limb of the internal capsule and cantrell radiata with several smaller cortical infarcts in the left frontoparietal region. Kidney MRI 09/27/25 11:15 IMPRESSION: 1. Mildly complex Bosniak 2 right renal cyst. No follow-up surveillance required for this lesion. 2. Other benign-appearing renal cysts. 3. Incidental note of cardiomegaly. Abdomen/Pelvis CT 09/27/25 20:31 IMPRESSION: No acute abnormality is noted in the abdomen and pelvis. There is colonic diverticulosis without evidence of acute diverticulitis. Fat-containing right inguinal hernia repair. All CT scans at this facility are performed using low dose modulation techniques as appropriate to perform exam including the following: automated exposure control; use of iterative reconstruction technique; adjustment of the mA and/or kV according to patient size (this includes techniques or standardized protocols for targeted exams where dose is matched to indication/reason for exam). Labs Labs: Laboratory Results - last 24 hr 09/27/25 09/27/25 09/28/25 16:56 19:48 08:03 WBC RBC Hgb Hct MCV MCH MCHC RDW Plt Count MPV Immature Gran % (Auto) Neut % (Auto) Lymph % (Auto) [place] % (Auto) Eos % (Auto) Baso % (Auto) Lymph # (Auto) [place] # (Auto) Eos # (Auto) Baso # (Auto) Abs Immat Gran (auto) Absolute Neuts (auto) Absolute Nucleated RBC Nucleated RBC % % Immature Plt Fraction Sodium Potassium Chloride Carbon Dioxide Anion Gap BUN Creatinine Estim Creat Clear Calc Estimated GFR Glucose POC Capillary Glucose 141 H 82 96 Calcium Magnesium Total Bilirubin AST ALT Alkaline Phosphatase Total Protein Albumin Lipase 09/28/25 09/28/25 11:36 11:49 WBC 6.1 RBC 4.64 Hgb 15.1 Hct 45.8 MCV 98.7 MCH 32.5 MCHC 33.0 RDW 13.4 Plt Count 180 MPV 10.3 Immature Gran % (Auto) 0.3 Neut % (Auto) 75.1 H Lymph % (Auto) 14.9 L [place] % (Auto) 6.6 Eos % (Auto) 2.3 Baso % (Auto) 0.8 Lymph # (Auto) 0.90 [place] # (Auto) 0.4 Eos # (Auto) 0.1 Baso # (Auto) 0.1 Abs Immat Gran (auto) 0.02 Absolute Neuts (auto) 4.6 Absolute Nucleated RBC 0.000 Nucleated RBC % 0.0 % Immature Plt Fraction 2.2 Sodium 139 Potassium 4.3 Chloride 107 Carbon Dioxide 24 Anion Gap 8 BUN 14 Creatinine 0.96 Estim Creat Clear Calc 91 Estimated GFR > 60 Glucose 88 POC Capillary Glucose 89 Calcium 9.4 Magnesium 1.9 Total Bilirubin 1.2 AST 34 ALT 25 Alkaline Phosphatase 68 Total Protein 7.3 Albumin 4.1 Lipase 41 Quality VTE Prophylaxis VTE prophylaxis: mechanical ordered Hospitalist [facility] Advance Care Plan I have confirmed that the patient's Advanced Care Plan is present, code status is documented, or surrogate decision maker is listed in patient medical record.: Yes Medication Reconciliation I have utilized all available resources to obtain, update and review the patients current medications (includes all prescriptions, OTC, herbals, cannabis, and nutritional supplements).: Yes
[2025-09-28] MEDS: RIVAROXABAN 20 MG TABLET PO (17:05)
[2025-09-28] MEDS: HYDROmorphone HCL INJ (*CRX) 1 MG/ML SYR 0.5 MG IV PUSH ×2 (20:00→23:30)
[2025-09-28] MEDS: MELATONIN 5 MG TABLET PO (21:22)
[2025-09-29] VITALS (8 sets, daily range): BP systolic 134–151; BP diastolic 88–97; PULSE 70–100; RESP 16–18; TEMP 36.4–36.8; O2SAT 96–98
[2025-09-29 05:17] LABS: Hematocrit 44.8 % (42.0-52.0); Hemoglobin 14.7 g/dL (14.0-18.0); Immature Granulocyte Percent A 0.4 % (0-0.5); Lymphocytes Absolute Auto 1.29 K/mm3 (0.9-3.2); Mean Corpuscular HGB Conc 32.8 g/dl (32-36); Mean Corpuscular Hemoglobin 32.2 pg (26-34); Mean Corpuscular Volume 98.0 fl (80-100); Nucleated Red Blood Cells Absolute Auto 0.000 K/mm3 (0.0-0.012); Nucleated Red Blood Cells Perc 0.0 % (0.0-0.2); Platelet Count Result 189 k/mm3 (150-375); Red Blood Count 4.57 M/mm3 (4.6-6.20); White Blood Count 5.4 K/mm3 (4.5-10.0)
[2025-09-29] MEDS: LEVOTHYROXINE SODIUM 25 MCG TABLET PO (05:47)
[2025-09-29] MEDS: HYDROmorphone HCL INJ (*CRX) 1 MG/ML SYR 0.5 MG IV PUSH (05:47)
[2025-09-29 06:56] LABS: Alanine Aminotransferase 23 U/L (6-50); Albumin Level 3.9 g/dL (3.5-5.1); Alkaline Phosphatase 69 U/L (38-126); Anion Gap 6 mmol/L (4-12); Aspartate Amino Transferase 29 U/L (17-59); Bilirubin,Total 1.2 mg/dL (0.2-1.3); Blood Urea Nitrogen 16 mg/dL (9-20); Calcium 9.3 mg/dL (8.4-10.2); Carbon Dioxide 23 mmol/L (22-30); Chloride 108 mmol/L (98-107); Estimated CRCL calculation 100 ml/min; Estimated Glomerular Filt Rate > 60; Glucose 85 mg/dL (65-110); Magnesium 1.9 mg/dL (1.6-2.3); Potassium 3.8 mmol/L (3.4-5.0); Sodium 137 mmol/L (137-145); Total Protein 6.9 g/dL (6.3-8.2)
[2025-09-29] MEDS: MORPHINE SULFATE (*CRX) 4 MG/ML INJ 1 MG IV PUSH (07:33)
--- NOTE | 2025-09-29 08:44 | PM.IMPN2 ---
Assessment and Plan Assessment and Plan (1) Right sided weakness: Code(s): R53.1 - Weakness Status: Acute Assessment and Plan: New deficits of expressive aphasia, dysarthria, right upper extremity weakness, right lower extremity weakness discovered by family this afternoon on 09/23. LKW at 11 p.m. when he went to sleep night prior on 09/22. Patient reports he woke with symptoms but it appears he was not able to get out of bed to alert someone. Initial inpatient assessment showed the following deficits: severe expressive aphasia, severe dysarthria, severe right upper extremity weakness, right lower extremity weakness, right lateral gaze deficit but able to overcome midline, and partial hemianopia. Patient is not a candidate for TNK given timeframe. Not candidate for thrombectomy as there was no LVO on CTA that was obtained in the ED on 09/23. Case was discussed with Dr. Woods, neurologist, via the ED provider, Dr. Cristina. Neurology okay to accept here and recommended starting Plavix and aspirin, will see in the a.m.. However patient failed his swallow test in the emergency department, case was rediscussed with Neurology and he recommended aspirin suppository only. 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 EF 65-70% - neuro checks Q4 -MBS on 09/24 shows no signs of aspiration -speech therapy following and started on a diet - PT/OT/ST to eval and treat -reviewed lipid panel, LDL 118 -A1C 5.4 -TSH 7.8(patient is currently on levothyroxine 25 mcg and I believe patient is not taking the medication properly/regularly, so no dose adjustment needed. Should repeat TSH in 6 weeks) - up ad marixa or fall precautions - continue statin -restarted Xarelto - history of AFib, telemetry monitoring (2) Expressive aphasia: Code(s): R47.01 - Aphasia Status: Acute Assessment and Plan: - speech evaluation - hypoglycemia protocol prn and Accu-Cheks Q6h (3) Atrial fibrillation: Qualifiers: Atrial fibrillation type: unspecified chronic Qualified Code(s): I48.20 - Chronic atrial fibrillation, unspecified Code(s): I48.91 - Unspecified atrial fibrillation Status: Chronic Assessment and Plan: Patient has history of chronic atrial fibrillation on diltiazem and metoprolol. No longer on anticoagulation, per patient report it was discontinued approximately 1-2 weeks ago. Initial EKG in the ED showed AFib RVR, rate 105. HR now rate controlled in the 90s without intervention. -restarted Xarelto -patient is currently not on any rate control medication (4) Hypothyroidism: Qualifiers: Hypothyroidism type: unspecified Qualified Code(s): E03.9 - Hypothyroidism, unspecified Code(s): E03.9 - Hypothyroidism, unspecified Status: Chronic Assessment and Plan: History of hypothyroidism on Synthroid. - check TSH - continue levothyroxine 25 mcg (5) HLD (hyperlipidemia): Qualifiers: Hyperlipidemia type: unspecified Qualified Code(s): E78.5 - Hyperlipidemia, unspecified Code(s): E78.5 - Hyperlipidemia, unspecified Status: Chronic Assessment and Plan: History of hyperlipidemia on simvastatin 40 mg daily. (6) Abdominal pain: Code(s): R10.9 - Unspecified abdominal pain Status: Acute Assessment and Plan: Abd/Pelvis CT: 1. Directed noncontrast exam demonstrating no acute surgical abnormality. 2. Moderate to large amount of stool in the rectal vault. 3. Several chronic appearing findings as above including 2.5 cm mildly complex cystic mass in the midpole the right kidney which can be better evaluated with follow-up abdominal MRI. MRI kidney with mildly complex Bosniak 2 right renal cyst. No follow-up surveillance needed. Other benign appearing renal cyst. Urology consulted Patient on another rapid response on 09/27/2025 with abdominal pain repeat CT with no acute abnormality noted Will continue to monitor. On Miralax. Plan DVT Prophylaxis: Xarelto Code Status: full code Subjective Date/time seen: 09/29/25 08:44 Interval history: 09/25: I spoke with his sister and has a very long conversation. Patient one of youngest sibling of 10. Out 5/10 were have learning disability which includes him.Patient was once but . Past 5 years patient is declining ,gained of lot and was emotionally declining as well. As per his sister, he needs assistance. For some reason she reports he stopped taking Xarelto for past 2 weeks. She denies any episodes of bleeding or any recent hospitalization. She agrees to start xarelto. Explained the risk vs benefits of restarting xarelto. Reviewed echocardiogram and head and neck CTA which did not show any significant finding. Discussed with neurologist who agrees with the plan. 09/26: Patient was complaining about abdominal pain. CT abd/pelvis performed which shows several chronic appearing findings as above including 2.5 cm mildly complex cystic mass in the midpole the right kidney. Recommend MRI. Will consult Urology. 09/27: Discussed with neurology recommend only Xarelto. No need of aspirin and Plavix. Started atorvastatin 80 mg p.o. q.d.. Pending urology consult regarding renal cyst. Patient needs rehab. Had a long conversation with sister today. 09/28: Overnight had some abdominal pain. Had a bowel movement per nursing staff and felt better. CT was negative. Still has some abdominal discomfort however has expressive aphasia and difficult to understand 09/29 Patient was seen during morning rounds today. Patient repeat CT scan was normal. Patient still have mild abdominal pain. Better than yesterday. No nausea. No shortness or chest pain. Review of Systems Review of Systems: All systems reviewed & are unremarkable except as noted in HPI and below Exam Const: General: comfortable Other: , male, appearance consistent with stated age. Not in acute distress HENMT: Face/Nose/Sinus: Normal nares present Other: Dysarthria Eyes: General: appearance normal, both eyes and all related structures Sclera: sclerae normal Other: Very mild gaze palsy to the right eye, somewhat limited lateral gaze however is able to cross midline. PERRLA Resp: Effort & Inspection: normal respiratory effort Auscultation: clear to auscultation bilaterally Cardio: Rate: regular rate Rhythm: abnormal rhythm (Consistent with AFib) Other: S1-S2 present without murmur, rub, ectopy GI: Other: Abdomen soft, nondistended, nontender. Normoactive bowel sounds in all quadrants. Skin: General skin exam: no rashes or lesions noted Wounds: no wounds Other: Significant ecchymosis to the left lower extremity starting at calf to the distal ankles. Neuro: Other: Alert and conversant next receive aphasia right sided weakness Extrem: Other: Significant ecchymosis to the left lower extremity and minimal swelling to the left ankle. No tenderness with palpation or range of motion. Psych: Other: Mental status appears intact. Objective Data Vital Signs Vital Signs: Vital Signs - 24 hr 09/28/25 12:00 09/28/25 15:01 09/28/25 16:00 Temperature 36.3 C L Pulse Rate 95 95 109 H Respiratory Rate 18 Blood Pressure 167/92 H Pulse Oximetry 97 Oxygen Delivery 09/28/25 20:00 09/28/25 20:00 09/28/25 21:54 Temperature 36.2 C L Pulse Rate 92 92 97 Respiratory Rate 18 18 Blood Pressure 156/114 H Pulse Oximetry 94 96 Oxygen Delivery Room Air 09/29/25 00:00 09/29/25 04:00 09/29/25 04:50 Temperature 36.4 C L Pulse Rate 89 81 76 Respiratory Rate 16 Blood Pressure 151/97 H Pulse Oximetry 98 Oxygen Delivery Intake/Output Intake/Output: Intake & Output 09/26/25 09/27/25 09/28/25 09/29/25 23:59 23:59 23:59 23:59 Intake Total 3660 1580 2505 100 Output Total 800 2150 2100 700 Balance 2860 -570 405 -600 Meds/Results Medications: Active Medications Generic Name Dose Route Start Last Admin Trade Name Freq PRN Reason Stop Dose Admin Acetaminophen 650 mg 09/26/25 00:07 09/28/25 09:28 Acetaminophen 325 Mg Tablet PO 650 mg Q4H PRN Administration Mild Pain (1-3) or Fever Atorvastatin Calcium 80 mg 09/27/25 09:00 09/28/25 09:28 Atorvastatin 40 Mg Tablet PO 80 mg DAILY SCOTTIE Administration Dextrose 12.5 gm 09/23/25 20:22 Dextrose 50% 25 Gm/50 Ml Syringe IV PUSH PRN PRN Hypoglycemia Protocol Glucagon 1 mg 09/23/25 20:22 Glucagon For Inj 1 Mg Vial IM PRN PRN Hypoglycemia Protocol Glucose 15 gm 09/23/25 20:22 Glucose Oral Gel 15 Gm Of Glucse In 37.5 Gm Tube PO PRN PRN Hypoglycemia Protocol Hydromorphone HCl 0.5 mg 09/27/25 19:16 09/29/25 05:47 Hydromorphone Hcl Inj (*Crx) 1 Mg/Ml Syr IV PUSH 0.5 mg Q3H PRN Administration Pain Rated 7-10 Dextrose 1,000 mls @ 100 mls/hr 09/23/25 20:22 Dextrose 5% 1,000 Ml IVPB PRN PRN Hypoglycemia Protocol Ketorolac Tromethamine 15 mg 09/27/25 19:17 09/28/25 18:42 Ketorolac 15 Mg/Ml Vial (*Bkc) IV PUSH 15 mg Q6H PRN Administration Pain Rated 4-6 Levothyroxine Sodium 25 mcg 09/26/25 06:30 09/29/25 05:47 Levothyroxine Sodium 25 Mcg Tablet PO 25 mcg DAILY@0630 SCOTTIE Administration Melatonin 5 mg 09/26/25 00:15 09/28/25 21:22 Melatonin 5 Mg Tablet PO 5 mg HS SCOTTIE Administration Morphine Sulfate 1 mg 09/27/25 16:47 09/29/25 07:33 Morphine Sulfate (*Crx) 4 Mg/Ml Inj IV PUSH 1 mg Q4H PRN Administration Pain Rated 7-10 Ondansetron HCl 4 mg 09/23/25 20:22 09/26/25 08:07 Ondansetron Inj 4 Mg/2 Ml Vial IV PUSH 4 mg Q6H PRN Administration Nausea And Vomiting Polyethylene Glycol 17 gm 09/27/25 09:00 09/28/25 17:42 Polyethylene Glycol 3350 17 Gm Powd.Pack PO Not Given BID SCOTTIE Rivaroxaban 20 mg 09/25/25 10:00 09/28/25 17:05 Rivaroxaban 20 Mg Tablet PO 20 mg QPM SCOTTIE Administration Simethicone 80 mg 09/26/25 10:38 09/28/25 19:59 Simethicone 80 Mg Tab.Chew PO 80 mg QID PRN Administration Abdominal Cramping Radiology Results: ITS Impressions Head/Neck CTA 09/23/25 17:17 IMPRESSION: No hemodynamically significant stenosis is noted of the cervical and intracranial arterial vasculature. Modified Barium Swallow 09/24/25 13:12 IMPRESSION: No aspiration observed. See speech therapist's note for complete details. Brain MRI 09/24/25 15:46 IMPRESSION: 1. Multiple infarcts consistent with sharp emboli in the left middle cerebral artery vascular distribution the largest involving the posterior insula, posterior limb of the internal capsule and cantrell radiata with several smaller cortical infarcts in the left frontoparietal region. Kidney MRI 09/27/25 11:15 IMPRESSION: 1. Mildly complex Bosniak 2 right renal cyst. No follow-up surveillance required for this lesion. 2. Other benign-appearing renal cysts. 3. Incidental note of cardiomegaly. Abdomen/Pelvis CT 09/27/25 20:31 IMPRESSION: No acute abnormality is noted in the abdomen and pelvis. There is colonic diverticulosis without evidence of acute diverticulitis. Fat-containing right inguinal hernia repair. All CT scans at this facility are performed using low dose modulation techniques as appropriate to perform exam including the following: automated exposure control; use of iterative reconstruction technique; adjustment of the mA and/or kV according to patient size (this includes techniques or standardized protocols for targeted exams where dose is matched to indication/reason for exam). Labs Labs: Laboratory Results - last 24 hr 09/28/25 09/28/25 09/28/25 11:36 11:49 16:43 WBC 6.1 RBC 4.64 Hgb 15.1 Hct 45.8 MCV 98.7 MCH 32.5 MCHC 33.0 RDW 13.4 Plt Count 180 MPV 10.3 Immature Gran % (Auto) 0.3 Neut % (Auto) 75.1 H Lymph % (Auto) 14.9 L [place] % (Auto) 6.6 Eos % (Auto) 2.3 Baso % (Auto) 0.8 Lymph # (Auto) 0.90 [place] # (Auto) 0.4 Eos # (Auto) 0.1 Baso # (Auto) 0.1 Abs Immat Gran (auto) 0.02 Absolute Neuts (auto) 4.6 Absolute Nucleated RBC 0.000 Nucleated RBC % 0.0 % Immature Plt Fraction 2.2 Sodium 139 Potassium 4.3 Chloride 107 Carbon Dioxide 24 Anion Gap 8 BUN 14 Creatinine 0.96 Estim Creat Clear Calc 91 Estimated GFR > 60 Glucose 88 POC Capillary Glucose 89 93 Calcium 9.4 Magnesium 1.9 Total Bilirubin 1.2 AST 34 ALT 25 Alkaline Phosphatase 68 Total Protein 7.3 Albumin 4.1 Lipase 41 09/28/25 09/29/25 09/29/25 21:51 05:06 06:16 WBC 5.4 RBC 4.57 L Hgb 14.7 Hct 44.8 MCV 98.0 MCH 32.2 MCHC 32.8 RDW 13.4 Plt Count 189 MPV 10.3 Immature Gran % (Auto) 0.4 Neut % (Auto) 62.3 Lymph % (Auto) 24.1 [place] % (Auto) 8.4 Eos % (Auto) 3.9 Baso % (Auto) 0.9 Lymph # (Auto) 1.29 [place] # (Auto) 0.5 Eos # (Auto) 0.2 Baso # (Auto) 0.1 Abs Immat Gran (auto) 0.02 Absolute Neuts (auto) 3.3 Absolute Nucleated RBC 0.000 Nucleated RBC % 0.0 % Immature Plt Fraction Sodium 137 Potassium 3.8 Chloride 108 H Carbon Dioxide 23 Anion Gap 6 BUN 16 Creatinine 0.92 Estim Creat Clear Calc 100 Estimated GFR > 60 Glucose 85 POC Capillary Glucose 123 H Calcium 9.3 Magnesium 1.9 Total Bilirubin 1.2 AST 29 ALT 23 Alkaline Phosphatase 69 Total Protein 6.9 Albumin 3.9 Lipase Quality VTE Prophylaxis VTE prophylaxis: mechanical ordered
[2025-09-29] MEDS: ATORVASTATIN 40 MG TABLET 80 MG PO (09:53)
[2025-09-29] MEDS: SIMETHICONE 80 MG TAB.CHEW PO ×2 (09:54→17:46)
[2025-09-29] MEDS: ACETAMINOPHEN 325 MG TABLET 650 MG PO ×2 (17:46→20:30)
[2025-09-29] MEDS: RIVAROXABAN 20 MG TABLET PO (17:46)
[2025-09-29] MEDS: MELATONIN 5 MG TABLET PO (20:30)
[2025-09-30] VITALS: PULSE 94
[2025-09-30 05:04] VITALS: BP 151/107; PULSE 64; RESP 16; TEMP 36.4; O2SAT 96
[2025-09-30] MEDS: LEVOTHYROXINE SODIUM 25 MCG TABLET PO (05:43)
[2025-09-30] MEDS: ACETAMINOPHEN 325 MG TABLET 650 MG PO ×2 (05:43→17:24)
[2025-09-30 08:00] VITALS: PULSE 106
[2025-09-30] MEDS: MORPHINE SULFATE (*CRX) 4 MG/ML INJ 1 MG IV PUSH (08:28)
[2025-09-30] MEDS: SIMETHICONE 80 MG TAB.CHEW PO ×2 (08:36→17:26)
[2025-09-30] MEDS: ATORVASTATIN 40 MG TABLET 80 MG PO (08:37)
[2025-09-30 12:00] VITALS: PULSE 101
--- NOTE | 2025-09-30 12:14 | P.PNIM_ITS ---
Assessment and Plan Assessment and Plan (1) Right sided weakness: Code(s): R53.1 - Weakness Status: Acute Assessment and Plan: New deficits of expressive aphasia, dysarthria, right upper extremity weakness, right lower extremity weakness discovered by family this afternoon on 09/23. LKW at 11 p.m. when he went to sleep night prior on 09/22. Patient reports he woke with symptoms but it appears he was not able to get out of bed to alert someone. Initial inpatient assessment showed the following deficits: severe expressive aphasia, severe dysarthria, severe right upper extremity weakness, right lower extremity weakness, right lateral gaze deficit but able to overcome midline, and partial hemianopia. Patient is not a candidate for TNK given timeframe. Not candidate for thrombectomy as there was no LVO on CTA that was obtained in the ED on 09/23. Case was discussed with Dr. Woods, neurologist, via the ED provider, Dr. Cristina. Neurology okay to accept here and recommended starting Plavix and aspirin, will see in the a.m.. However patient failed his swallow test in the emergency department, case was rediscussed with Neurology and he recommended aspirin suppository only. 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 EF 65-70% - neuro checks Q4 -MBS on 09/24 shows no signs of aspiration -speech therapy following and started on a diet - PT/OT/ST to eval and treat -reviewed lipid panel, LDL 118 -A1C 5.4 -TSH 7.8(patient is currently on levothyroxine 25 mcg and I believe patient is not taking the medication properly/regularly, so no dose adjustment needed. Should repeat TSH in 6 weeks) - up ad marixa or fall precautions - continue statin -restarted Xarelto - history of AFib, telemetry monitoring (2) Expressive aphasia: Code(s): R47.01 - Aphasia Status: Acute Assessment and Plan: - speech evaluation - hypoglycemia protocol prn and Accu-Cheks Q6h (3) Atrial fibrillation: Qualifiers: Atrial fibrillation type: unspecified chronic Qualified Code(s): I48.20 - Chronic atrial fibrillation, unspecified Code(s): I48.91 - Unspecified atrial fibrillation Status: Chronic Assessment and Plan: Patient has history of chronic atrial fibrillation on diltiazem and metoprolol. No longer on anticoagulation, per patient report it was discontinued approximately 1-2 weeks ago. Initial EKG in the ED showed AFib RVR, rate 105. HR now rate controlled in the 90s without intervention. -restarted Xarelto -patient is currently not on any rate control medication (4) Hypothyroidism: Qualifiers: Hypothyroidism type: unspecified Qualified Code(s): E03.9 - Hypothyroidism, unspecified Code(s): E03.9 - Hypothyroidism, unspecified Status: Chronic Assessment and Plan: History of hypothyroidism on Synthroid. - check TSH - continue levothyroxine 25 mcg (5) HLD (hyperlipidemia): Qualifiers: Hyperlipidemia type: unspecified Qualified Code(s): E78.5 - Hyperlipidemia, unspecified Code(s): E78.5 - Hyperlipidemia, unspecified Status: Chronic Assessment and Plan: History of hyperlipidemia on simvastatin 40 mg daily. (6) Abdominal pain: Code(s): R10.9 - Unspecified abdominal pain Status: Acute Assessment and Plan: Abd/Pelvis CT: 1. Directed noncontrast exam demonstrating no acute surgical abnormality. 2. Moderate to large amount of stool in the rectal vault. 3. Several chronic appearing findings as above including 2.5 cm mildly complex cystic mass in the midpole the right kidney which can be better evaluated with follow-up abdominal MRI. MRI kidney with mildly complex Bosniak 2 right renal cyst. No follow-up surveillance needed. Other benign appearing renal cyst. Urology consulted Patient on another rapid response on 09/27/2025 with abdominal pain repeat CT with no acute abnormality noted Will continue to monitor. On Miralax. Plan Waiting for rehab placement DVT Prophylaxis: Xarelto Code Status: full code Subjective Date/time seen: 09/30/25 12:14 Interval history: 09/25: I spoke with his sister and has a very long conversation. Patient one of youngest sibling of 10. Out 02/16 were have learning disability which includes him.Patient was once but . Past 5 years patient is declining ,gained of lot and was emotionally declining as well. As per his sister, he needs assistance. For some reason she reports he stopped taking Xarelto for past 2 weeks. She denies any episodes of bleeding or any recent hospitalization. She agrees to start xarelto. Explained the risk vs benefits of restarting xarelto. Reviewed echocardiogram and head and neck CTA which did not show any significant finding. Discussed with neurologist who agrees with the plan. 09/26: Patient was complaining about abdominal pain. CT abd/pelvis performed which shows several chronic appearing findings as above including 2.5 cm mildly complex cystic mass in the midpole the right kidney. Recommend MRI. Will consult Urology. 09/27: Discussed with neurology recommend only Xarelto. No need of aspirin and Plavix. Started atorvastatin 80 mg p.o. q.d.. Pending urology consult regarding renal cyst. Patient needs rehab. Had a long conversation with sister today. 09/28: Overnight had some abdominal pain. Had a bowel movement per nursing staff and felt better. CT was negative. Still has some abdominal discomfort however has expressive aphasia and difficult to understand 09/29 Patient was seen during morning rounds today. Patient repeat CT scan was normal. Patient still have mild abdominal pain. Better than yesterday. No nausea. No shortness or chest pain. 09/30: Patient was seen during morning rounds today. No new noted pains. Abdominal pain is better. No shortness of breath or chest pain. Review of Systems Review of Systems: All systems reviewed & are unremarkable except as noted in HPI and below Exam Const: General: comfortable Other: , male, appearance consistent with stated age. Not in acute distress HENMT: Face/Nose/Sinus: Normal nares present Other: Dysarthria Eyes: General: appearance normal, both eyes and all related structures Sclera: sclerae normal Other: Very mild gaze palsy to the right eye, somewhat limited lateral gaze however is able to cross midline. PERRLA Resp: Effort & Inspection: normal respiratory effort Auscultation: clear to auscultation bilaterally Cardio: Rate: regular rate Rhythm: abnormal rhythm (Consistent with AFib) Other: S1-S2 present without murmur, rub, ectopy GI: Other: Abdomen soft, nondistended, nontender. Normoactive bowel sounds in all quadrants. Skin: General skin exam: no rashes or lesions noted Wounds: no wounds Other: Significant ecchymosis to the left lower extremity starting at calf to the distal ankles. Neuro: Other: Alert and conversant next receive aphasia right sided weakness Extrem: Other: Significant ecchymosis to the left lower extremity and minimal swelling to the left ankle. No tenderness with palpation or range of motion. Psych: Other: Mental status appears intact. Objective Data Vital Signs Vital Signs: Vital Signs - 24 hr 09/29/25 16:00 09/29/25 16:00 09/29/25 20:30 Temperature 36.5 C Pulse Rate 89 87 98 Respiratory Rate 16 Blood Pressure 137/88 Pulse Oximetry 96 Oxygen Delivery 09/29/25 20:57 09/30/25 00:00 09/30/25 05:04 Temperature 36.8 C 36.4 C L Pulse Rate 90 94 64 Respiratory Rate 18 16 Blood Pressure 134/90 151/107 H Pulse Oximetry 96 96 Oxygen Delivery 09/30/25 08:00 09/30/25 08:35 Temperature Pulse Rate 106 H Respiratory Rate Blood Pressure Pulse Oximetry Oxygen Delivery Room Air Intake/Output Intake/Output: Intake & Output 09/27/25 09/28/25 09/29/25 09/30/25 23:59 23:59 23:59 23:59 Intake Total 1580 2505 820 680 Output Total 2150 2100 1050 500 Balance -570 405 -230 180 Meds/Results Medications: Active Medications Generic Name Dose Route Start Last Admin Trade Name Freq PRN Reason Stop Dose Admin Acetaminophen 650 mg 09/26/25 00:07 09/30/25 05:43 Acetaminophen 325 Mg Tablet PO 650 mg Q4H PRN Administration Mild Pain (1-3) or Fever Atorvastatin Calcium 80 mg 09/27/25 09:00 09/30/25 08:37 Atorvastatin 40 Mg Tablet PO 80 mg DAILY SCOTTIE Administration Dextrose 12.5 gm 09/23/25 20:22 Dextrose 50% 25 Gm/50 Ml Syringe IV PUSH PRN PRN Hypoglycemia Protocol Glucagon 1 mg 09/23/25 20:22 Glucagon For Inj 1 Mg Vial IM PRN PRN Hypoglycemia Protocol Glucose 15 gm 09/23/25 20:22 Glucose Oral Gel 15 Gm Of Glucse In 37.5 Gm Tube PO PRN PRN Hypoglycemia Protocol Hydromorphone HCl 0.5 mg 09/27/25 19:16 09/29/25 05:47 Hydromorphone Hcl Inj (*Crx) 1 Mg/Ml Syr IV PUSH 0.5 mg Q3H PRN Administration Pain Rated 7-10 Dextrose 1,000 mls @ 100 mls/hr 09/23/25 20:22 Dextrose 5% 1,000 Ml IVPB PRN PRN Hypoglycemia Protocol Ketorolac Tromethamine 15 mg 09/27/25 19:17 09/28/25 18:42 Ketorolac 15 Mg/Ml Vial (*Bkc) IV PUSH 15 mg Q6H PRN Administration Pain Rated 4-6 Levothyroxine Sodium 25 mcg 09/26/25 06:30 09/30/25 05:43 Levothyroxine Sodium 25 Mcg Tablet PO 25 mcg DAILY@0630 SCOTTIE Administration Melatonin 5 mg 09/26/25 00:15 09/29/25 20:30 Melatonin 5 Mg Tablet PO 5 mg HS SCOTTIE Administration Morphine Sulfate 1 mg 09/27/25 16:47 09/30/25 08:28 Morphine Sulfate (*Crx) 4 Mg/Ml Inj IV PUSH 1 mg Q4H PRN Administration Pain Rated 7-10 Ondansetron HCl 4 mg 09/23/25 20:22 09/26/25 08:07 Ondansetron Inj 4 Mg/2 Ml Vial IV PUSH 4 mg Q6H PRN Administration Nausea And Vomiting Polyethylene Glycol 17 gm 09/27/25 09:00 09/30/25 08:36 Polyethylene Glycol 3350 17 Gm Powd.Pack PO 17 gm BID SCOTTIE Administration Rivaroxaban 20 mg 09/25/25 10:00 09/29/25 17:46 Rivaroxaban 20 Mg Tablet PO 20 mg QPM SCOTTIE Administration Simethicone 80 mg 09/26/25 10:38 09/30/25 08:36 Simethicone 80 Mg Tab.Chew PO 80 mg QID PRN Administration Abdominal Cramping Radiology Results: ITS Impressions Head/Neck CTA 09/23/25 17:17 IMPRESSION: No hemodynamically significant stenosis is noted of the cervical and intracranial arterial vasculature. Modified Barium Swallow 09/24/25 13:12 IMPRESSION: No aspiration observed. See speech therapist's note for complete details. Brain MRI 09/24/25 15:46 IMPRESSION: 1. Multiple infarcts consistent with sharp emboli in the left middle cerebral artery vascular distribution the largest involving the posterior insula, posterior limb of the internal capsule and cantrell radiata with several smaller cortical infarcts in the left frontoparietal region. Kidney MRI 09/27/25 11:15 IMPRESSION: 1. Mildly complex Bosniak 2 right renal cyst. No follow-up surveillance required for this lesion. 2. Other benign-appearing renal cysts. 3. Incidental note of cardiomegaly. Abdomen/Pelvis CT 09/27/25 20:31 IMPRESSION: No acute abnormality is noted in the abdomen and pelvis. There is colonic diverticulosis without evidence of acute diverticulitis. Fat-containing right inguinal hernia repair. All CT scans at this facility are performed using low dose modulation techniques as appropriate to perform exam including the following: automated ex posure control; use of iterative reconstruction technique; adjustment of the mA and/or kV according to patient size (this includes techniques or standardized protocols for targeted exams where dose is matched to indication/reason for exam). Quality VTE Prophylaxis VTE prophylaxis: mechanical ordered
--- NOTE | 2025-09-30 13:06 | PM.DS ---
DS: Admitting Diagnosis Discharge Date 09/30/2025 Admitting Diagnosis Right-sided weakness DS: Discharge Diagnosis Discharge Diagnosis (1) Right sided weakness: Code(s): R53.1 - Weakness Status: Acute Assessment and Plan: New deficits of expressive aphasia, dysarthria, right upper extremity weakness, right lower extremity weakness discovered by family this afternoon on 09/23. LKW at 11 p.m. when he went to sleep night prior on 09/22. Patient reports he woke with symptoms but it appears he was not able to get out of bed to alert someone. Initial inpatient assessment showed the following deficits: severe expressive aphasia, severe dysarthria, severe right upper extremity weakness, right lower extremity weakness, right lateral gaze deficit but able to overcome midline, and partial hemianopia. Patient is not a candidate for TNK given timeframe. Not candidate for thrombectomy as there was no LVO on CTA that was obtained in the ED on 09/23. Case was discussed with Dr. Woods, neurologist, via the ED provider, Dr. Cristina. Neurology okay to accept here and recommended starting Plavix and aspirin, will see in the a.m.. However patient failed his swallow test in the emergency department, case was rediscussed with Neurology and he recommended aspirin suppository only. 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 EF 65-70% - neuro checks Q4 -MBS on 09/24 shows no signs of aspiration -speech therapy following and started on a diet - PT/OT/ST to eval and treat -reviewed lipid panel, LDL 118 -A1C 5.4 -TSH 7.8(patient is currently on levothyroxine 25 mcg and I believe patient is not taking the medication properly/regularly, so no dose adjustment needed. Should repeat TSH in 6 weeks) - up ad marixa or fall precautions - continue statin -restarted Xarelto - history of AFib, telemetry monitoring (2) Expressive aphasia: Code(s): R47.01 - Aphasia Status: Acute Assessment and Plan: - speech evaluation - hypoglycemia protocol prn and Accu-Cheks Q6h (3) Atrial fibrillation: Qualifiers: Atrial fibrillation type: unspecified chronic Qualified Code(s): I48.20 - Chronic atrial fibrillation, unspecified Code(s): I48.91 - Unspecified atrial fibrillation Status: Chronic Assessment and Plan: Patient has history of chronic atrial fibrillation on diltiazem and metoprolol. No longer on anticoagulation, per patient report it was discontinued approximately 1-2 weeks ago. Initial EKG in the ED showed AFib RVR, rate 105. HR now rate controlled in the 90s without intervention. -restarted Xarelto -patient is currently not on any rate control medication (4) Hypothyroidism: Qualifiers: Hypothyroidism type: unspecified Qualified Code(s): E03.9 - Hypothyroidism, unspecified Code(s): E03.9 - Hypothyroidism, unspecified Status: Chronic Assessment and Plan: History of hypothyroidism on Synthroid. - check TSH - continue levothyroxine 25 mcg (5) HLD (hyperlipidemia): Qualifiers: Hyperlipidemia type: unspecified Qualified Code(s): E78.5 - Hyperlipidemia, unspecified Code(s): E78.5 - Hyperlipidemia, unspecified Status: Chronic Assessment and Plan: History of hyperlipidemia on simvastatin 40 mg daily. (6) Abdominal pain: Code(s): R10.9 - Unspecified abdominal pain Status: Acute Assessment and Plan: Abd/Pelvis CT: 1. Directed noncontrast exam demonstrating no acute surgical abnormality. 2. Moderate to large amount of stool in the rectal vault. 3. Several chronic appearing findings as above including 2.5 cm mildly complex cystic mass in the midpole the right kidney which can be better evaluated with follow-up abdominal MRI. MRI kidney with mildly complex Bosniak 2 right renal cyst. No follow-up surveillance needed. Other benign appearing renal cyst. Urology consulted Patient on another rapid response on 09/27/2025 with abdominal pain repeat CT with no acute abnormality noted Will continue to monitor. On Miralax. Plan Waiting for rehab placement DVT Prophylaxis: Xarelto Code Status: full code DS: Summary Hospital Course Reason for hospitalization: Right-sided weakness Hospital Course: Patient was admitted for a new right-sided weakness and expressive aphasia. Workup in the hospital was compatible with findings of new right-sided weakness and expressive aphasia. Patient did not have any complication during stay in the hospital. Rehab was started. Today patient was feeling better and was discharged to rehab for further treatment. Condition at the time of discharge was stable. Follow-up scheduled Status at Discharge Cognitive/behavioral status at discharge: Stable Time Spent with Patient Time attestation: Total time spent providing and/or coordinating discharge services: Mood than 30 minutes Exam Const: General: comfortable Other: , male, appearance consistent with stated age. Not in acute distress HENMT: Face/Nose/Sinus: Normal nares present Other: Dysarthria Eyes: General: appearance normal, both eyes and all related structures Sclera: sclerae normal Other: Very mild gaze palsy to the right eye, somewhat limited lateral gaze however is able to cross midline. PERRLA Resp: Effort & Inspection: normal respiratory effort Auscultation: clear to auscultation bilaterally Cardio: Rate: regular rate Rhythm: abnormal rhythm (Consistent with AFib) Other: S1-S2 present without murmur, rub, ectopy GI: Other: Abdomen soft, nondistended, nontender. Normoactive bowel sounds in all quadrants. Skin: General skin exam: no rashes or lesions noted Wounds: no wounds Other: Significant ecchymosis to the left lower extremity starting at calf to the distal ankles. Neuro: Other: Alert and conversant next receive aphasia right sided weakness Extrem: Other: Significant ecchymosis to the left lower extremity and minimal swelling to the left ankle. No tenderness with palpation or range of motion. Psych: Other: Mental status appears intact. Discharge Plan Discharge Attending physician on discharge: Cuong Casey Consulting providers: Adilene Woods; Sebas Juarez Discharging Clinician: Cuong Casey Patient Disposition: [place] Shelter/Asst Living Activity: as tolerated Diet: as tolerated Patient Instructions: Antibiotic Form Patient Language: Azeri Stand Alone Forms: General Discharge Information Discharge Medications: New melatonin 5 mg Tablet 5 mg PO HS Qty: 30 0RF polyethylene glycol 3350 [Miralax] 17 gram Powder In Packet 17 g PO BID Qty: 30 0RF atorvastatin 40 mg Tablet 80 mg PO DAILY Qty: 30 0RF simethicone 80 mg Tablet,Chewable 80 mg PO QID PRN (Reason: Abdominal Cramping) Qty: 90 0RF Continued levothyroxine 25 mcg tablet 25 mcg PO DAILY@0630 Qty: 30 0RF Xarelto 20 mg tablet 20 mg PO QPM Qty: 30 0RF Patient Comments: pt said this med has been on hold for 2 weeks per his general internal medicine physician in [place] Date of admission: 09/24/25 17:55 Primary Care Provider: Mio,Carmelo Banerjee Admitting Provider: Kirk Thomas Attending physician on admission: Kirk Thomas Condition: Guarded Prognosis Quality VTE Prophylaxis VTE prophylaxis: mechanical ordered
[2025-09-30 15:55] VITALS: BP 149/95; PULSE 95; RESP 17; TEMP 36.4; O2SAT 97
[2025-09-30] MEDS: RIVAROXABAN 20 MG TABLET PO (17:24)
== END 2025-09-30 19:51 | DRG 65 ==
LOC: ANHED 17:50 → ANH3MEDSUR 19:55 → ANHIMU 22:40 → ANH2MED 09-26 19:09
PROVIDERS: General Practice; Internal Medicine; Student in an Organized Health Care Education/Training Program; Admitting Provider Internal Medicine; Emergency Provider Emergency Medicine; PCP Family Medicine; Visit Provider Internal Medicine
DX: I63.412 Cerebral infarction due to embolism of left middle cerebral artery (principal); I48.20 Chronic atrial fibrillation, unspecified; G83.30 Monoplegia, unspecified affecting unspecified side; R47.01 Aphasia; R47.1 Dysarthria and anarthria; R29.706 NIHSS score 6; I10 Essential (primary) hypertension; E78.5 Hyperlipidemia, unspecified; E03.9 Hypothyroidism, unspecified; N28.89 Other specified disorders of kidney and ureter; R10.9 Unspecified abdominal pain
CPT/HCPCS: 36415; 70496; 70498; 70553; 74176; 74183; 74230; 80048; 80053; 80061; 81003; 82948; 83036; 83605; 83690; 83735; 84439; 84443; 84484; 85025; 85027; 85055; 85610; 85730; 92507; 92523; 92610; 92611; 93005; 96361; 96374; 96375; 97110; 97162; 97167; 97530; 97535; 99285; A9270; A9577; C8929; G0378; J0360; J0616; J1171; J1885; J2270; J2405; J3360; J7030; Q9957; Q9967